=== PATIENT | male | born 1935 | race Caucasian/White ===

== ENCOUNTER 2018-05-01 11:20 | Inpatient (IN) | payer MEDICARE ==
[~2018-05-01] VITALS: Ht 177.8 cm; Wt 109.0 kg
[~2018-05-01 11:20] MED LIST: CARV-49 PO; COU3T PO; ENAL20TA75 PO; ENOX40SY7 SQ; GLIP10TA11 PO; HYDR-3972 PO; METF-437 PO; METF500T7 PO; SENN-173 PO; SIMV10TA2 PO; SITA50TA PO
[2018-05-01 11:52] LABS: BASOPHILS % (AUTO) 0.3 % (0-1); EOSINOPHILS # (AUTO) 0.1 X10'3 (0-0.9); EOSINOPHILS % (AUTO) 2.3 % (0-6); HEMATOCRIT 29.5 % (42.0-52.0); HEMOGLOBIN 9.8 g/dl (14.0-17.9); LYMPHOCYTES # (AUTO) 1.4 X10'3 (1.1-4.8); LYMPHOCYTES % (AUTO) 23.9 % (21-51); MEAN CORPUSCULAR HEMOGLOBIN 31.1 PG (27.0-31.0); MEAN CORPUSCULAR HGB CONC 33.1 % (33.0-36.5); MEAN CORPUSCULAR VOLUME 93.9 FL (78-98); MEAN PLATELET VOLUME 8.8 FL (7.4-10.4); MONOCYTES # (AUTO) 0.4 X10'3 (0-0.9); NEUTROPHILS % (AUTO) 67.5 % (42-75); PLATELET COUNT 266 X10'3 (140-440); RED BLOOD COUNT 3.14 X10'6 (4.70-6.10); RED CELL DISTRIBUTION WIDTH 13.4 % (11.5-14.5); WHITE BLOOD COUNT 5.9 X10'3 (4.5-11.0)
[2018-05-01 12:07] LABS: ALANINE AMINOTRANSFERASE 21 U/L (12-78); ALBUMIN 3.1 G/DL (3.4-5.0); ALBUMIN/GLOBULIN RATIO 0.8 (1.1-1.5); ALKALINE PHOSPHATASE 72 IU/L (46-116); ANION GAP 12 (8-16); ASPARTATE AMINO TRANSFERASE 12 U/L (10-37); BILIRUBIN,TOTAL 0.3 MG/DL (0.1-1.0); BLOOD UREA NITROGEN 36 MG/DL (7-18); BUN/CREATININE RATIO 17.3 (5.4-32.0); CALCIUM 9.7 MG/DL (8.5-10.1); CHLORIDE 100 MMOL/L (99-107); CREATININE 2.08 MG/DL (0.60-1.10); GLUCOSE 223 MG/DL (70-104); LIPASE 221 U/L (73-393); POTASSIUM 4.6 MMOL/L (3.5-5.1); SODIUM 136 MMOL/L (135-145); TOTAL CARBON DIOXIDE 23.7 MMOL/L (24-32); eGFR 31 ML/MIN
[2018-05-01 12:15] LABS: PROTHROMBIN TIME 10.4 SECONDS (9.0-12.0)
[2018-05-01] MEDS ORDERED: pantoprazole 40MG/NS 100ML BAG 100 ML IV ONE ×2 (14:30→15:00)
[2018-05-01] MEDS ORDERED: pantoprazole IV 80 MG in normal saline 100ml IV soln 100 ML IV ONE (14:30)
[2018-05-01] MEDS ORDERED: pantoprazole 40 MG vial IV ONE (14:45)
[2018-05-01] MEDS ORDERED: CLOP75TA15 PO (16:00)
[2018-05-01] MEDS ORDERED: FERR324T4 PO (16:00)
[2018-05-01] MEDS ORDERED: potassium Cl 20 mEq SR tablet PO PRN ×2 (17:10)
[2018-05-01] MEDS ORDERED: magnesium 4gm in 100ml NS 100 ML IV PRN (17:10)
[2018-05-01] MEDS ORDERED: potassium Cl 40MEQ/NS 500ml 500 ML IV PRN ×2 (17:10)
[2018-05-01] MEDS ORDERED: ondansetron/PF 4mg/2ml inj IV PRN (17:10)
[2018-05-01] MEDS: normal saline 1000ml 1,000 ML IV SCH (17:10)
[2018-05-01] MEDS ORDERED: magnesium 2GM in 50ml NS 50 ML IV PRN (17:10)
[2018-05-01] MEDS ORDERED: magnesium Cl slow-release 64mg tablet PO PRN (17:10)
--- NOTE | 2018-05-01 17:10 | NUR ---
PT WAS TAKEN TO GI LAB, REPORT GIVEN TO GAGAN ESTRADA.
[2018-05-01 17:20] VITALS: BP 109/60
[2018-05-01] MEDS ORDERED: LIDOcaine Viscous 15ml cup ONE (17:27)
[2018-05-01] MEDS ORDERED: fentaNYL/PF 50MCG/1 ML 2ML syringe ONE (17:27)
[2018-05-01] MEDS ORDERED: MIDAZolam 5mg/5ml vial ONE (17:27)
[2018-05-01 18:27] VITALS: BP 127/67
[2018-05-01 18:37] VITALS: BP 117/72
[2018-05-01 18:47] VITALS: BP 133/73
[2018-05-01] MEDS ORDERED: PEG 3350/Na sulf,bicarb,Cl/KCl oral sol 4 liter bottle PO ONE (18:55)
[2018-05-01 18:57] VITALS: BP 133/73
--- NOTE | 2018-05-02 00:54 | NUR ---
pt up to B[facility] for bowel movement. He is given warm wipes and advised to please place them in the red trash when done as they are not flushable. pt ambulatory in/out of bed without assist. advised pt to let me know if he needed help.
[2018-05-02 03:09] LABS: CLARITY,URINE CLEAR (Clear); COLOR,URINE YELLOW (Yellow); GLUCOSE, URINE NEGATIVE (Neg); KETONES,URINE NEGATIVE (Neg); LEUKOCYTE ESTERASE ,URINE NEGATIVE (Neg); NITRITES, URINE NEGATIVE (Neg); OCCULT BLOOD,URINE MODERATE (Neg); PROTEIN,URINE NEGATIVE (Neg); UROBILINOGEN,URINE 0.2 E.U/dL (0.2-1.0)
[2018-05-02] MEDS: normal saline 1000ml 1,000 ML IV SCH ×3 (03:10→23:10)
[2018-05-02 03:18] LABS: UA COLLECTION TYPE NON-SPECIFIED
[2018-05-02 03:56] LABS: WBC,URINE NONE SEEN /HPF (0-4)
[2018-05-02 03:57] LABS: BACTERIA,URINE NONE SEEN /HPF (Neg); RBC,URINE 0-2 /HPF (0-2); SQUAMOUS EPITHELIAL CELL,UR FEW /LPF (FEW)
[2018-05-02 06:25] LABS: BASOPHILS % (AUTO) 0.3 % (0-1); EOSINOPHILS # (AUTO) 0.2 X10'3 (0-0.9); EOSINOPHILS % (AUTO) 3.8 % (0-6); HEMATOCRIT 23.2 % (42.0-52.0); HEMOGLOBIN 7.8 g/dl (14.0-17.9); LYMPHOCYTES # (AUTO) 1.8 X10'3 (1.1-4.8); LYMPHOCYTES % (AUTO) 42.7 % (21-51); MEAN CORPUSCULAR HEMOGLOBIN 32.1 PG (27.0-31.0); MEAN CORPUSCULAR HGB CONC 33.6 % (33.0-36.5); MEAN CORPUSCULAR VOLUME 95.6 FL (78-98); MONOCYTES # (AUTO) 0.4 X10'3 (0-0.9); NEUTROPHILS # (AUTO) 1.9 X10'3 (1.8-7.7); NEUTROPHILS % (AUTO) 43.2 % (42-75); PLATELET COUNT 202 X10'3 (140-440); RED BLOOD COUNT 2.43 X10'6 (4.70-6.10); RED CELL DISTRIBUTION WIDTH 13.5 % (11.5-14.5); WHITE BLOOD COUNT 4.4 X10'3 (4.5-11.0)
[2018-05-02 06:35] LABS: ALBUMIN 2.5 G/DL (3.4-5.0); ANION GAP 9 (8-16); BLOOD UREA NITROGEN 25 MG/DL (7-18); BUN/CREATININE RATIO 14.4 (5.4-32.0); CALCIUM 8.4 MG/DL (8.5-10.1); CHLORIDE 107 MMOL/L (99-107); CREATININE 1.74 MG/DL (0.60-1.10); GLUCOSE 180 MG/DL (70-104); MAGNESIUM 1.7 MG/DL (1.5-2.4); POTASSIUM 4.3 MMOL/L (3.5-5.1); SODIUM 141 MMOL/L (135-145); TOTAL CARBON DIOXIDE 25.5 MMOL/L (24-32); eGFR 38 ML/MIN
[2018-05-02] MEDS: pantoprazole 40mg Tablet.DR PO SCH ×2 (07:42→18:02)
[2018-05-02] MEDS: K and/or MAG REPLACEMENT MC SCH (07:59)
[2018-05-02] MEDS: carvedilol 6.25mg tablet PO SCH ×2 (08:41→19:40)
[2018-05-02] MEDS: clopidogrel 75mg tablet PO SCH (08:42)
[2018-05-02] MEDS: ferrous sulfate 325mg tablet PO SCH (08:47)
[2018-05-02 09:46] LABS: HEMOGLOBIN A1C 7.1 % (4.5-6.2)
--- NOTE | 2018-05-02 12:29 | NUR ---
paged dr. gonzales hgb 7.8.
--- NOTE | 2018-05-02 12:32 | NUR ---
patient to gi lab.
[2018-05-02 12:45] VITALS: BP 134/64
[2018-05-02] MEDS ORDERED: MIDAZolam 5mg/5ml vial ONE (12:53)
[2018-05-02] MEDS ORDERED: fentaNYL/PF 50MCG/1 ML 2ML syringe ONE (12:53)
[2018-05-02 14:11] VITALS: BP 104/67
[2018-05-02 14:20] VITALS: BP 116/55
[2018-05-02 14:30] VITALS: BP 105/55
[2018-05-02 14:40] VITALS: BP 115/67
--- NOTE | 2018-05-02 18:30 | NUR ---
Patient in room [facility]. I have received report from Tameka FARAH and had the opportunity to ask questions and assume patient care. patient states he is feeling okay now but has vomited a lot today. Will continue to monitor. Addendum: 05/03/18 at 0517 by Chasidy David RN Wrong patient.
--- NOTE | 2018-05-02 18:30 | NUR ---
Patient in room [facility]. I have received report from Nidia in ED and had the opportunity to ask questions and will assess when he arrives.
[2018-05-02 19:00] VITALS: BP 147/60
--- NOTE | 2018-05-02 19:45 | NUR ---
Patient had a 4 second pause on tele, vitals WNl, asymptomatic and unaware of change in HR. Will continue to monitor.
[2018-05-02] MEDS ORDERED: dextrose 50%-water 50ml dispensing syringe IV PRN ×2 (19:50)
[2018-05-02] MEDS ORDERED: insulin Lispro (HumaLOG) vial - multi-dose SQ SCH (19:50)
[2018-05-02] MEDS ORDERED: dextrose ORAL solution 15 GM/59 ML bottle PO PRN ×2 (19:50)
[2018-05-02] MEDS ORDERED: glucagon, human recombinant 1mg kit SUBCUT PRN (19:50)
[2018-05-02] MEDS: atorvastatin 20mg tablet PO SCH (21:57)
[2018-05-02] MEDS: lisinopril 10 MG tablet PO SCH (22:00)
[2018-05-02] MEDS: insulin glargine (Lantus) pen - multi-dose SQ SCH (22:16)
--- NOTE | 2018-05-02 23:30 | NUR ---
Patient had additional 3 second pause on tele, VS wnl, patient asymptomatic and unaware of change in heart rate. Will continue to monitor.
[2018-05-03] VITALS: BP 112/47
[2018-05-03 06:13] LABS: BASOPHILS % (AUTO) 0.3 % (0-1); EOSINOPHILS # (AUTO) 0.1 X10'3 (0-0.9); EOSINOPHILS % (AUTO) 2.6 % (0-6); HEMATOCRIT 22.5 % (42.0-52.0); HEMOGLOBIN 7.6 g/dl (14.0-17.9); LYMPHOCYTES # (AUTO) 1.2 X10'3 (1.1-4.8); LYMPHOCYTES % (AUTO) 25.4 % (21-51); MEAN CORPUSCULAR HEMOGLOBIN 32.4 PG (27.0-31.0); MEAN CORPUSCULAR VOLUME 95.3 FL (78-98); MEAN PLATELET VOLUME 8.9 FL (7.4-10.4); MONOCYTES # (AUTO) 0.4 X10'3 (0-0.9); MONOCYTES % (AUTO) 8.1 % (2-12); NEUTROPHILS # (AUTO) 2.9 X10'3 (1.8-7.7); NEUTROPHILS % (AUTO) 63.6 % (42-75); PLATELET COUNT 214 X10'3 (140-440); RED BLOOD COUNT 2.36 X10'6 (4.70-6.10); RED CELL DISTRIBUTION WIDTH 13.7 % (11.5-14.5); WHITE BLOOD COUNT 4.6 X10'3 (4.5-11.0)
[2018-05-03 06:22] LABS: ALBUMIN 2.6 G/DL (3.4-5.0); ANION GAP 9 (8-16); BLOOD UREA NITROGEN 16 MG/DL (7-18); BUN/CREATININE RATIO 10.5 (5.4-32.0); CALCIUM 7.9 MG/DL (8.5-10.1); CHLORIDE 108 MMOL/L (99-107); CREATININE 1.53 MG/DL (0.60-1.10); GLUCOSE 181 MG/DL (70-104); MAGNESIUM 1.6 MG/DL (1.5-2.4); POTASSIUM 3.7 MMOL/L (3.5-5.1); SODIUM 141 MMOL/L (135-145); eGFR 44 ML/MIN
--- NOTE | 2018-05-03 06:25 | NUR ---
Patient in room [facility]. I have received report from GAGAN Umaña and had the opportunity to ask questions and assume patient care.
--- NOTE | 2018-05-03 06:32 | NUR ---
Problems reprioritized. Patient report given, questions answered & plan of care reviewed with Fatimah FARAH. Patient resting with CPAP on right side.
[2018-05-03] MEDS: normal saline 1000ml 1,000 ML IV SCH ×3 (06:36→16:48)
[2018-05-03 07:42] VITALS: BP 120/48
[2018-05-03] MEDS: K and/or MAG REPLACEMENT MC SCH (08:00)
[2018-05-03] MEDS ORDERED: linagliptin 5mg tablet PO SCH (08:00)
[2018-05-03] MEDS: MESSAGE TO PHARMACY PO NR (09:13)
[2018-05-03] MEDS: ferrous sulfate 325mg tablet PO SCH (09:31)
[2018-05-03] MEDS: pantoprazole 40mg Tablet.DR PO SCH ×2 (09:31→16:48)
[2018-05-03] MEDS: carvedilol 6.25mg tablet PO SCH ×2 (09:31→19:41)
[2018-05-03 11:30] VITALS: BP 116/51
--- NOTE | 2018-05-03 13:41 | NUR ---
Received call from tele that the patient had a [address] Rene was just calling me back right after Hunter told me. She is aware. She will notify cardiology if he keeps having them. His BP is 147/38 and HR is 74. Patient is resting comfortably in bed; in no distress.
[2018-05-03] MEDS: clopidogrel 75mg tablet PO SCH (14:42)
--- NOTE | 2018-05-03 15:55 | NUR ---
DM consult: Pt with A1c 7.1 seen at bedside. Pt states he doesn't check his BG levels or follow any special diet, he just gets his BG levels checked when he sees an MD for DM management q 3 months. Pt states he takes his PO DM meds per rx w/o any difficulties. Pt with no questions at this time. Pt given written DM education material with referral to outpatient DM class and RD contact information. Will remain available. Addendum: 05/03/18 at [address] Amended: Links added.
--- NOTE | 2018-05-03 18:20 | NUR ---
Patient in room [facility]. I have received report from Fatimah FARAH and had the opportunity to ask questions and assume patient care. Patient resting, respirations even, will continue to monitor.
--- NOTE | 2018-05-03 18:20 | NUR ---
Problems reprioritized. Patient report given, questions answered & plan of care reviewed with GAGAN Umaña.
[2018-05-03 20:00] VITALS: BP 129/52
[2018-05-03] MEDS: insulin glargine (Lantus) pen - multi-dose SQ SCH (22:14)
[2018-05-03] MEDS: atorvastatin 20mg tablet PO SCH (22:14)
[2018-05-03] MEDS: lisinopril 10 MG tablet PO SCH (22:14)
[2018-05-04] VITALS: BP 127/64
[2018-05-04] MEDS: normal saline 1000ml 1,000 ML IV SCH (03:14)
[2018-05-04 05:14] LABS: ALBUMIN 2.7 G/DL (3.4-5.0); ANION GAP 7 (8-16); BLOOD UREA NITROGEN 11 MG/DL (7-18); BUN/CREATININE RATIO 7.7 (5.4-32.0); CALCIUM 7.7 MG/DL (8.5-10.1); CHLORIDE 112 MMOL/L (99-107); CREATININE 1.42 MG/DL (0.60-1.10); GLUCOSE 145 MG/DL (70-104); MAGNESIUM 1.6 MG/DL (1.5-2.4); SODIUM 142 MMOL/L (135-145); TOTAL CARBON DIOXIDE 22.7 MMOL/L (24-32); eGFR 48 ML/MIN
[2018-05-04 05:37] LABS: BASOPHILS % (AUTO) 0.3 % (0-1); EOSINOPHILS # (AUTO) 0.1 X10'3 (0-0.9); HEMATOCRIT 24.4 % (42.0-52.0); HEMOGLOBIN 8.1 g/dl (14.0-17.9); LYMPHOCYTES # (AUTO) 1.3 X10'3 (1.1-4.8); LYMPHOCYTES % (AUTO) 29.4 % (21-51); MEAN CORPUSCULAR HGB CONC 33.4 % (33.0-36.5); MEAN CORPUSCULAR VOLUME 95.8 FL (78-98); MONOCYTES # (AUTO) 0.4 X10'3 (0-0.9); NEUTROPHILS # (AUTO) 2.5 X10'3 (1.8-7.7); NEUTROPHILS % (AUTO) 58.3 % (42-75); PLATELET COUNT 226 X10'3 (140-440); RED BLOOD COUNT 2.55 X10'6 (4.70-6.10); RED CELL DISTRIBUTION WIDTH 13.7 % (11.5-14.5); WHITE BLOOD COUNT 4.3 X10'3 (4.5-11.0)
--- NOTE | 2018-05-04 06:27 | NUR ---
Problems reprioritized. Patient report given, questions answered & plan of care reviewed with Vee FARAH and Raquel RN. Patient resting on right side, CPAP on.
--- NOTE | 2018-05-04 06:56 | NUR ---
Patient in room [facility]. I have received report from Ligia and had the opportunity to ask questions and assume patient care.
[2018-05-04 07:59] VITALS: BP 160/49
[2018-05-04] MEDS: K and/or MAG REPLACEMENT MC SCH (08:00)
[2018-05-04] MEDS: clopidogrel 75mg tablet PO SCH (08:45)
[2018-05-04] MEDS: carvedilol 6.25mg tablet PO SCH (08:45)
[2018-05-04] MEDS: ferrous sulfate 325mg tablet PO SCH (08:45)
[2018-05-04] MEDS: pantoprazole 40mg Tablet.DR PO SCH (08:45)
[2018-05-04] MEDS: MESSAGE TO PHARMACY PO NR (10:07)
[2018-05-04 12:42] VITALS: BP 123/47
[2018-05-04] MEDS ORDERED: FERR324T4 PO (12:52)
--- NOTE | 2018-05-04 14:20 | NUR ---
Tele dc'd and returned to tele room, all belongings taken from room. pt will f/u with pcp and scrap preparer.
--- NOTE | 2018-05-04 15:09 | NUR ---
Patient discharged around 1420. Left in w/c, in a stable condition, accompanied by a hospital staff and his . IV discontinued, discharge medications, plan of care, and educational resources reviewed with pt. Good verbal feedback from patient.
== END 2018-05-04 14:30 | disposition home or self-care (01) | DRG 378 ==
LOC: ER 11:20 → ED HOLD 17:10 → SUR 3N 05-02 18:35
PROVIDERS: ADMIT Internal Medicine; ATTEND Internal Medicine
PROC: 0DB68ZX Excision of Stomach, Via Natural or Artificial Opening Endoscopic, Diagnostic (ICD-10-PCS; 2018-05-01)
PROC: 0W3P8ZZ Control Bleeding in Gastrointestinal Tract, Via Natural or Artificial Opening Endoscopic (ICD-10-PCS; principal; 2018-05-02)
PROC: 0DBL8ZZ Excision of Transverse Colon, Via Natural or Artificial Opening Endoscopic (ICD-10-PCS; 2018-05-02)
PROC: 0DBN8ZX Excision of Sigmoid Colon, Via Natural or Artificial Opening Endoscopic, Diagnostic (ICD-10-PCS; 2018-05-02)
PROC: 0DBN8ZZ Excision of Sigmoid Colon, Via Natural or Artificial Opening Endoscopic (ICD-10-PCS; 2018-05-02)
PROC: 5A09357 Assistance with Respiratory Ventilation, Less than 24 Consecutive Hours, Continuous Positive Airway Pressure (ICD-10-PCS; 2018-05-03)
PROC: 5A09357 Assistance with Respiratory Ventilation, Less than 24 Consecutive Hours, Continuous Positive Airway Pressure (ICD-10-PCS; 2018-05-04)
DX: K55.21 Angiodysplasia of colon with hemorrhage (principal); D68.9 Coagulation defect, unspecified; N17.9 Acute kidney failure, unspecified; K22.10 Ulcer of esophagus without bleeding; K63.5 Polyp of colon; K29.81 Duodenitis with bleeding; D64.9 Anemia, unspecified; E11.9 Type 2 diabetes mellitus without complications; E78.5 Hyperlipidemia, unspecified; I25.10 Atherosclerotic heart disease of native coronary artery without angina pectoris; I12.9 Hypertensive chronic kidney disease with stage 1 through stage 4 chronic kidney disease, or unspecified chronic kidney disease; I48.91 Unspecified atrial fibrillation; K29.60 Other gastritis without bleeding; K57.30 Diverticulosis of large intestine without perforation or abscess without bleeding; N18.3 Chronic kidney disease, stage 3 (moderate); R04.0 Epistaxis; K64.8 Other hemorrhoids; Z88.0 Allergy status to penicillin; Z79.84 Long term (current) use of oral hypoglycemic drugs; Z79.01 Long term (current) use of anticoagulants; Z79.899 Other long term (current) drug therapy; Z85.46 Personal history of malignant neoplasm of prostate; Z86.010 Personal history of colon polyps
CPT/HCPCS: 36415; 43239; 45380; 45382; 45385; 80048; 80053; 81001; 82948; 83036; 83690; 83735; 85025; 85610; 87070; 88305; 88342; 96365; 96376; 99152; 99153; 99285; A4620; C9113; G0378; J1815; J2250; J3010; J7030

== ENCOUNTER 2020-09-14 08:05 | Day surgery (SDC) | payer MEDICARE ==
[~2020-09-14] VITALS: Ht 177.8 cm; Wt 105.1 kg
[~2020-09-14 08:05] MED LIST changes: +ALBU8.5H8 INH; +BENZ-16 PO; -COU3T PO; +DEXA6TAB PO; -ENOX40SY7 SQ; +FERR324T4 PO; -GLIP10TA11 PO; -HYDR-3972 PO; -METF500T7 PO; -SENN-173 PO
[2020-09-14] MEDS ORDERED: albumin 25% 100mL bottle x 1 IV PRN (08:25)
[2020-09-14] MEDS ORDERED: GLIP10TA11 PO (08:49)
[2020-09-14 09:00] VITALS: BP 154/73
[2020-09-14 09:40] VITALS: BP 132/89
[2020-09-14 09:50] VITALS: BP 139/59
[2020-09-14 10:00] VITALS: BP 130/62
[2020-09-14 10:15] VITALS: BP 127/54
[2020-09-14 11:40] LABS: LDH,BODY FLUID 67 U/L; TOTAL PROTEIN,BODY FLUID 3.4 G/DL
== END 2020-09-14 10:35 | disposition home or self-care (01) ==
LOC: SSTAY O 08:05
PROVIDERS: ATTEND Radiology Diagnostic Radiology
DX: J90 Pleural effusion, not elsewhere classified (principal); E11.22 Type 2 diabetes mellitus with diabetic chronic kidney disease; I12.9 Hypertensive chronic kidney disease with stage 1 through stage 4 chronic kidney disease, or unspecified chronic kidney disease; N18.30 Chronic kidney disease, stage 3 unspecified; E78.5 Hyperlipidemia, unspecified; I25.10 Atherosclerotic heart disease of native coronary artery without angina pectoris; E87.1 Hypo-osmolality and hyponatremia; G47.33 Obstructive sleep apnea (adult) (pediatric); I27.81 Cor pulmonale (chronic); Z86.16 Personal history of COVID-19; Z88.0 Allergy status to penicillin; Z78.9 Other specified health status; Z79.84 Long term (current) use of oral hypoglycemic drugs; Z79.899 Other long term (current) drug therapy
CPT/HCPCS: 32555; 83615; 84157; 87070

== ENCOUNTER 2023-08-26 11:44 | Inpatient (IN) | payer MEDICARE ==
[2023-08-26] VITALS (21 sets, daily range): BP systolic 104–154; BP diastolic 41–63; PULSE 88–106; RESP 14–34; O2SAT 96–100
[~2023-08-26] VITALS: Ht 177.8 cm; Wt 91.6 kg
[~2023-08-26 11:44] MED LIST changes: -ALBU8.5H8 INH; -BENZ-16 PO; +CLOP75TA34 PO; -DEXA6TAB PO; -FERR324T4 PO; +LACT1CAP76 PO; +LINE600T14 PO; +METF-1203 PO; -METF-437 PO; +PANT-47 PO; +SIMV-341 PO; -SIMV10TA2 PO
[2023-08-26] MEDS ORDERED: Dextrose 10%-water IV solution 1,000 ML IV SCH (11:45)
[2023-08-26] MEDS: Dextrose 10%-water IV solution 1,000 ML IV SCH (12:10)
[2023-08-26] MEDS: dextrose 50%-water 50ml dispensing syringe IV ONE ×3 (12:53→16:40)
[2023-08-26] MEDS: CefTRIAXone 2gm/D5W 50ml BAG 50 ML IV ONE (14:02)
[2023-08-26 14:23] LABS: ABG BASE EXCESS -11.4 mmol/L (-2.0-2.0); ABG HCO3 13.2 mmol/L (22.0-26.0); ABG OXYGEN SATURATION 96.7 % (94-97); ABG PCO2 (T) 25.8 mmHg (35.0-48.0); ABG PH (T) 7.327 (7.340-7.440); ABG PO2 (T) 93.3 mmHg (75.0-100.0); ALLEN'S TEST POSITIVE; FCOHb 0.3 % (0.0-3.9); FHHb 3.3 % (0.0-5.0); FMetHb 0.5 % (0.0-1.5); FO2Hb 95.9 % (94-97); MODE RA; TOTAL HEMOGLOBIN 9.1 G/dl (14.0-17.9)
[2023-08-26 14:38] LABS: BASOPHILS % (AUTO) 0.1 % (0-1); EOSINOPHILS % (AUTO) 0.9 % (0-6); HEMATOCRIT 25.7 % (42.0-52.0); HEMOGLOBIN 8.4 g/dl (14.0-17.9); LYMPHOCYTES # (AUTO) 1.1 X10'3 (1.1-4.8); LYMPHOCYTES % (AUTO) 19.4 % (21-51); MEAN CORPUSCULAR HGB CONC 32.7 g/dL (33.0-36.5); MEAN CORPUSCULAR VOLUME 88.7 FL (78-98); MEAN PLATELET VOLUME 7.4 FL (7.4-10.4); MONOCYTES # (AUTO) 0.6 X10'3 (0-0.9); MONOCYTES % (AUTO) 10.8 % (2-12); NEUTROPHILS # (AUTO) 3.7 X10'3 (1.8-7.7); NEUTROPHILS % (AUTO) 68.8 % (42-75); PLATELET COUNT 231 X10'3 (140-440); RED CELL DISTRIBUTION WIDTH 17.6 % (11.5-14.5); WHITE BLOOD COUNT 5.4 X10'3 (4.5-11.0)
[2023-08-26 14:44] LABS: ALANINE AMINOTRANSFERASE 10 U/L (12-78); ALBUMIN 2.2 G/DL (3.4-5.0); ALBUMIN/GLOBULIN RATIO 0.5 (1.1-1.5); ALKALINE PHOSPHATASE 64 IU/L (46-116); ANION GAP 16 (8-16); ASPARTATE AMINO TRANSFERASE 8 U/L (10-37); BILIRUBIN,TOTAL 0.2 MG/DL (0.1-1.0); BLOOD UREA NITROGEN 57 MG/DL (7-18); BUN/CREATININE RATIO 6.5 (10.0-20.0); CALCIUM 8.1 MG/DL (8.5-10.1); CHLORIDE 106 MMOL/L (99-107); CREATININE 8.72 MG/DL (0.60-1.10); MAGNESIUM 1.3 MG/DL (1.5-2.4); POTASSIUM 4.8 MMOL/L (3.5-5.1); SODIUM 137 MMOL/L (135-145); TOTAL CARBON DIOXIDE 15.1 MMOL/L (24-32); TOTAL PROTEIN 6.4 G/DL (6.4-8.2); eCRCL 6 ML/MIN; eGFR 6 ML/MIN
[2023-08-26 14:45] LABS: GLUCOSE 64 MG/DL (70-104)
[2023-08-26] MEDS: ondansetron/PF 4mg/2ml inj IV ONE (15:13)
[2023-08-26 15:18] LABS: BILIRUBIN,URINE NEGATIVE (Neg); CLARITY,URINE SLIGHTLY CLOUDY (Clear); COLOR,URINE YELLOW (Yellow); GLUCOSE, URINE NEGATIVE (Neg); KETONES,URINE NEGATIVE (Neg); LEUKOCYTE ESTERASE ,URINE NEGATIVE (Neg); NITRITES, URINE NEGATIVE (Neg); OCCULT BLOOD,URINE LARGE (Neg); PH,URINE 5.5 (4.8-8.0); PROTEIN,URINE 30 mg/dl (Neg); UROBILINOGEN,URINE 0.2 E.U/dL (0.2-1.0)
[2023-08-26 15:22] LABS: UA COLLECTION TYPE CLN CATCH MIDSTREAM
[2023-08-26 15:27] LABS: SQUAMOUS EPITHELIAL CELL,UR FEW /LPF (FEW)
[2023-08-26 15:28] LABS: RBC,URINE TNTC /HPF (0-2)
[2023-08-26 15:30] LABS: BACTERIA,URINE FEW /HPF (Neg); WBC,URINE 0-4 /HPF (0-4)
[2023-08-26] MEDS: pantoprazole 40MG/NS 100ML BAG 100 ML IV SCH (15:45)
[2023-08-26] MEDS: pantoprazole 40 MG vial IV SCH (15:46)
[2023-08-26] MEDS: octreotide inj. 500 MCG in normal saline 100ml IV soln 97.5 ML IV SCH (16:09)
[2023-08-26] MEDS ORDERED: ondansetron/PF 4mg/2ml inj IV PRN (16:20)
[2023-08-26] MEDS: normal saline 1000ml 1,000 ML IV SCH (16:20)
[2023-08-26] MEDS ORDERED: morphine 4 MG/ML inj SYRINge IV PRN (16:20)
[2023-08-26] MEDS ORDERED: magnesium hydroxide 30ml (MOM) UD suspension PO PRN (16:20)
[2023-08-26] MEDS ORDERED: acetaminophen 325mg tablet PO PRN (16:20)
[2023-08-26] MEDS: normal saline 500ml IV soln 500 ML IV ONE ×4 (16:25→16:52)
[2023-08-26] MEDS: LidoCAINE 2% Topical Jelly 11mL syringe (UROJET) TOP ONE (16:48)
[2023-08-26] MEDS: docusate sod 100mg capsule PO SCH (21:08)
[2023-08-26] MEDS: heparin, porcine 5000 units/ml vial SQ SCH (21:08)
[2023-08-27] VITALS (16 sets, daily range): BP systolic 105–140; BP diastolic 39–60; PULSE 85–112; RESP 13–30; O2SAT 95–98
[2023-08-27] MEDS: morphine 2 MG/ML inj. syringe IV PRN (00:19)
[2023-08-27] MEDS: acetaminophen 325mg tablet PO PRN (02:09)
[2023-08-27 06:30] LABS: ALBUMIN 2.1 G/DL (3.4-5.0); ANION GAP 14 (8-16); BLOOD UREA NITROGEN 59 MG/DL (7-18); BUN/CREATININE RATIO 7.2 (10.0-20.0); CALCIUM 7.8 MG/DL (8.5-10.1); CHLORIDE 101 MMOL/L (99-107); CREATININE 8.21 MG/DL (0.60-1.10); MAGNESIUM 1.2 MG/DL (1.5-2.4); PHOSPHORUS 4.3 MG/DL (2.3-4.5); SODIUM 131 MMOL/L (135-145); TOTAL CARBON DIOXIDE 16.2 MMOL/L (24-32); eCRCL 7 ML/MIN; eGFR 6 ML/MIN
[2023-08-27 06:55] LABS: GLUCOSE 313 MG/DL (70-104)
[2023-08-27 08:11] LABS: BASOPHILS % (AUTO) 0.1 % (0-1); EOSINOPHILS # (AUTO) 0.1 X10'3 (0-0.9); EOSINOPHILS % (AUTO) 1.9 % (0-6); HEMATOCRIT 26.2 % (42.0-52.0); HEMOGLOBIN 8.4 g/dl (14.0-17.9); LYMPHOCYTES # (AUTO) 0.9 X10'3 (1.1-4.8); MEAN CORPUSCULAR HEMOGLOBIN 28.4 PG (27.0-31.0); MEAN CORPUSCULAR HGB CONC 31.9 g/dL (33.0-36.5); MEAN CORPUSCULAR VOLUME 88.9 FL (78-98); MEAN PLATELET VOLUME 7.4 FL (7.4-10.4); MONOCYTES # (AUTO) 0.6 X10'3 (0-0.9); MONOCYTES % (AUTO) 11.3 % (2-12); NEUTROPHILS # (AUTO) 3.9 X10'3 (1.8-7.7); NEUTROPHILS % (AUTO) 69.7 % (42-75); PLATELET COUNT 183 X10'3 (140-440); RED BLOOD COUNT 2.95 X10'6 (4.70-6.10); RED CELL DISTRIBUTION WIDTH 17.2 % (11.5-14.5); WHITE BLOOD COUNT 5.5 X10'3 (4.5-11.0)
[2023-08-27] MEDS ORDERED: dextrose 50%-water 50ml dispensing syringe IV PRN ×2 (09:10)
[2023-08-27] MEDS ORDERED: DEXTROSE 15 GM of carb/4 tabs (each vial/BOTTLE has 4 tablets) PO PRN ×2 (09:10)
[2023-08-27] MEDS ORDERED: glucagon, human recombinant 1mg kit SUBCUT PRN (09:10)
[2023-08-27] MEDS: pantoprazole 40mg Tablet.DR PO SCH (09:32)
[2023-08-27] MEDS: sodium bicarbonate (8.4%) 1 mEq/ml syringe IV ONE (09:34)
[2023-08-27] MEDS: SODIUM ZIRCONIUM CYCLOSILICATE 10 GM POWD.PACK PO ONE (09:34)
[2023-08-27 10:57] LABS: C DIFF ANTIGEN POSITIVE (NEGATIVE); C DIFF SPECIMEN=DIARRHEA? ACCEPTABLE; C DIFFICILE TOXINS A&B POSITIVE (Neg)
[2023-08-27] MEDS: INSULIN LISPRO 100 UNIT/ML INSULN.PEN MULTI-DOSE SQ SCH ×3 (12:24→19:02)
[2023-08-27 12:38] LABS: BILIRUBIN,URINE NEGATIVE (Neg); CLARITY,URINE CLOUDY (Clear); COLOR,URINE YELLOW (Yellow); GLUCOSE, URINE 250 mg/dl (Neg); KETONES,URINE NEGATIVE (Neg); LEUKOCYTE ESTERASE ,URINE NEGATIVE (Neg); NITRITES, URINE NEGATIVE (Neg); OCCULT BLOOD,URINE LARGE (Neg); PH,URINE 5.5 (4.8-8.0); PROTEIN,URINE 30 mg/dl (Neg); UROBILINOGEN,URINE 0.2 E.U/dL (0.2-1.0)
[2023-08-27 12:44] LABS: TOTAL PROTEIN,URINE RANDOM 144.8 MG/DL
[2023-08-27 12:47] LABS: UA COLLECTION TYPE FOLEY CATH
[2023-08-27 12:51] LABS: MUCUS STRANDS FEW /LPF (Neg); RBC,URINE TNTC /HPF (0-2); SQUAMOUS EPITHELIAL CELL,UR FEW /LPF (FEW)
[2023-08-27 12:52] LABS: AMORPHOUS URATES 1+; TRANSITIONAL EPI CELLS,URINE FEW /HPF
[2023-08-27 12:53] LABS: BACTERIA,URINE NONE SEEN /HPF (Neg)
[2023-08-27 13:31] LABS: UA EOSINOPHILS NO EOS /HPF
[2023-08-27] MEDS: VANCOMYCIN 125 MG/5 ML oral SOLN.RECON 5mL UD syringe (FIRVANQ) PO SCH (16:26)
[2023-08-27] MEDS: normal saline 1000ml 1,000 ML IV SCH (16:39)
[2023-08-27] MEDS ORDERED: LOSA50TA64 PO (17:01)
[2023-08-27] MEDS ORDERED: GLIP5TAB26 PO (17:01)
[2023-08-27] MEDS ORDERED: FLUT1BLS13 PO (17:01)
[2023-08-27] MEDS ORDERED: SPIR1TAB4 PO (17:01)
[2023-08-27] MEDS ORDERED: PANT40TA54 PO (17:01)
[2023-08-27] MEDS: insulin glargine (Lantus) pen - multi-dose SQ SCH (20:52)
[2023-08-27] MEDS: diphenhydrAMINE 25mg capsule PO ONE (23:00)
[2023-08-28] VITALS (9 sets, daily range): BP systolic 108–136; BP diastolic 46–68; PULSE 102–118; RESP 14–20; O2SAT 95–99
[2023-08-28 06:09] LABS: BASOPHILS % (AUTO) 0.1 % (0-1); EOSINOPHILS # (AUTO) 0.1 X10'3 (0-0.9); EOSINOPHILS % (AUTO) 1.5 % (0-6); HEMATOCRIT 25.7 % (42.0-52.0); HEMOGLOBIN 8.4 g/dl (14.0-17.9); LYMPHOCYTES # (AUTO) 1.1 X10'3 (1.1-4.8); LYMPHOCYTES % (AUTO) 19.6 % (21-51); MEAN CORPUSCULAR HEMOGLOBIN 28.3 PG (27.0-31.0); MEAN CORPUSCULAR HGB CONC 32.6 g/dL (33.0-36.5); MEAN CORPUSCULAR VOLUME 86.9 FL (78-98); MEAN PLATELET VOLUME 7.3 FL (7.4-10.4); MONOCYTES # (AUTO) 0.9 X10'3 (0-0.9); MONOCYTES % (AUTO) 16.9 % (2-12); NEUTROPHILS # (AUTO) 3.4 X10'3 (1.8-7.7); NEUTROPHILS % (AUTO) 61.9 % (42-75); PLATELET COUNT 189 X10'3 (140-440); RED BLOOD COUNT 2.96 X10'6 (4.70-6.10); RED CELL DISTRIBUTION WIDTH 16.9 % (11.5-14.5); WHITE BLOOD COUNT 5.4 X10'3 (4.5-11.0)
[2023-08-28 06:43] LABS: TOTAL CELLS COUNTED 100
[2023-08-28 06:44] LABS: ALANINE AMINOTRANSFERASE 13 U/L (12-78); ALBUMIN 2.1 G/DL (3.4-5.0); ALBUMIN/GLOBULIN RATIO 0.5 (1.1-1.5); ALKALINE PHOSPHATASE 63 IU/L (46-116); ANION GAP 12 (8-16); ASPARTATE AMINO TRANSFERASE 10 U/L (10-37); BILIRUBIN,TOTAL 0.3 MG/DL (0.1-1.0); BLOOD UREA NITROGEN 56 MG/DL (7-18); BUN/CREATININE RATIO 7.9 (10.0-20.0); CALCIUM 8.2 MG/DL (8.5-10.1); CHLORIDE 105 MMOL/L (99-107); CREATININE 7.12 MG/DL (0.60-1.10); GLUCOSE 106 MG/DL (70-104); MAGNESIUM 1.1 MG/DL (1.5-2.4); PHOSPHORUS 4.2 MG/DL (2.3-4.5); PLATELET ESTIMATE NORMAL; POTASSIUM 4.5 MMOL/L (3.5-5.1); SODIUM 134 MMOL/L (135-145); TOTAL CARBON DIOXIDE 17.1 MMOL/L (24-32); TOTAL PROTEIN 6.3 G/DL (6.4-8.2); eCRCL 8 ML/MIN; eGFR 7 ML/MIN
[2023-08-28 06:45] LABS: ANISOCYTOSIS 1+; ELLIPTOCYTES FEW
[2023-08-28] MEDS: SODIUM ZIRCONIUM CYCLOSILICATE 10 GM POWD.PACK PO SCH (08:16)
[2023-08-28] MEDS: INSULIN LISPRO 100 UNIT/ML INSULN.PEN MULTI-DOSE SQ SCH (08:20)
[2023-08-28] MEDS ORDERED: magnesium 2GM in 50ml NS 50 ML IV PRN (13:20)
[2023-08-29] VITALS (7 sets, daily range): BP systolic 117–150; BP diastolic 49–66; PULSE 89–103; RESP 13–17; O2SAT 96–99
[2023-08-29 06:17] LABS: BASOPHILS % (AUTO) 0.1 % (0-1); EOSINOPHILS # (AUTO) 0.2 X10'3 (0-0.9); EOSINOPHILS % (AUTO) 2.9 % (0-6); HEMATOCRIT 25.1 % (42.0-52.0); HEMOGLOBIN 8.4 g/dl (14.0-17.9); LYMPHOCYTES # (AUTO) 1.1 X10'3 (1.1-4.8); LYMPHOCYTES % (AUTO) 21.8 % (21-51); MEAN CORPUSCULAR HEMOGLOBIN 28.6 PG (27.0-31.0); MEAN CORPUSCULAR HGB CONC 33.3 g/dL (33.0-36.5); MEAN CORPUSCULAR VOLUME 85.7 FL (78-98); MEAN PLATELET VOLUME 7.4 FL (7.4-10.4); MONOCYTES % (AUTO) 18.4 % (2-12); NEUTROPHILS % (AUTO) 56.8 % (42-75); PLATELET COUNT 185 X10'3 (140-440); RED BLOOD COUNT 2.93 X10'6 (4.70-6.10); RED CELL DISTRIBUTION WIDTH 16.7 % (11.5-14.5); WHITE BLOOD COUNT 5.3 X10'3 (4.5-11.0)
[2023-08-29 06:31] LABS: ALANINE AMINOTRANSFERASE 11 U/L (12-78); ALBUMIN 2.1 G/DL (3.4-5.0); ALBUMIN/GLOBULIN RATIO 0.5 (1.1-1.5); ALKALINE PHOSPHATASE 62 IU/L (46-116); ANION GAP 6 (8-16); ASPARTATE AMINO TRANSFERASE 6 U/L (10-37); BILIRUBIN,TOTAL 0.3 MG/DL (0.1-1.0); BLOOD UREA NITROGEN 51 MG/DL (7-18); BUN/CREATININE RATIO 8.9 (10.0-20.0); CALCIUM 8.2 MG/DL (8.5-10.1); CHLORIDE 105 MMOL/L (99-107); CREATININE 5.72 MG/DL (0.60-1.10); PHOSPHORUS 3.9 MG/DL (2.3-4.5); SODIUM 133 MMOL/L (135-145); TOTAL PROTEIN 6.3 G/DL (6.4-8.2); eCRCL 9 ML/MIN; eGFR 9 ML/MIN
[2023-08-29 06:41] LABS: GLUCOSE 173 MG/DL (70-104)
[2023-08-29 07:01] LABS: TOTAL CELLS COUNTED 100
[2023-08-29] MEDS: magnesium 4gm in 100ml NS 100 ML IV PRN (07:01)
[2023-08-29 07:02] LABS: ANISOCYTOSIS 1+; PLATELET ESTIMATE NORMAL
[2023-08-29 07:03] LABS: BURR CELLS FEW; ELLIPTOCYTES FEW
[2023-08-29 07:04] LABS: SCHISTOCYTES FEW
[2023-08-29] MEDS: SODIUM ZIRCONIUM CYCLOSILICATE 10 GM POWD.PACK PO SCH (08:09)
[2023-08-29] MEDS: K and/or MAG REPLACEMENT MC SCH (08:14)
[2023-08-30] VITALS (15 sets, daily range): BP systolic 101–154; BP diastolic 37–72; PULSE 84–112; RESP 12–22; O2SAT 3–98
[2023-08-30 06:19] LABS: BASOPHILS % (AUTO) 0.2 % (0-1); EOSINOPHILS # (AUTO) 0.1 X10'3 (0-0.9); HEMATOCRIT 22.7 % (42.0-52.0); HEMOGLOBIN 7.7 g/dl (14.0-17.9); LYMPHOCYTES % (AUTO) 27.9 % (21-51); MEAN CORPUSCULAR HEMOGLOBIN 28.5 PG (27.0-31.0); MEAN CORPUSCULAR HGB CONC 33.8 g/dL (33.0-36.5); MEAN CORPUSCULAR VOLUME 84.3 FL (78-98); MEAN PLATELET VOLUME 7.1 FL (7.4-10.4); MONOCYTES # (AUTO) 0.8 X10'3 (0-0.9); MONOCYTES % (AUTO) 23.9 % (2-12); NEUTROPHILS # (AUTO) 1.6 X10'3 (1.8-7.7); PLATELET COUNT 187 X10'3 (140-440); RED BLOOD COUNT 2.69 X10'6 (4.70-6.10); RED CELL DISTRIBUTION WIDTH 16.2 % (11.5-14.5); WHITE BLOOD COUNT 3.5 X10'3 (4.5-11.0)
[2023-08-30 06:51] LABS: TOTAL CELLS COUNTED 100
[2023-08-30 06:52] LABS: ANISOCYTOSIS 1+; ELLIPTOCYTES FEW; PLATELET ESTIMATE NORMAL
[2023-08-30 07:07] LABS: ALANINE AMINOTRANSFERASE 13 U/L (12-78); ALBUMIN/GLOBULIN RATIO 0.5 (1.1-1.5); ALKALINE PHOSPHATASE 59 IU/L (46-116); ANION GAP 8 (8-16); ASPARTATE AMINO TRANSFERASE 3 U/L (10-37); BILIRUBIN,TOTAL 0.3 MG/DL (0.1-1.0); BLOOD UREA NITROGEN 45 MG/DL (7-18); BUN/CREATININE RATIO 10.5 (10.0-20.0); CALCIUM 8.1 MG/DL (8.5-10.1); CHLORIDE 105 MMOL/L (99-107); CREATININE 4.28 MG/DL (0.60-1.10); GLUCOSE 147 MG/DL (70-104); MAGNESIUM 1.6 MG/DL (1.5-2.4); PHOSPHORUS 3.6 MG/DL (2.3-4.5); POTASSIUM 3.6 MMOL/L (3.5-5.1); SODIUM 133 MMOL/L (135-145); TOTAL CARBON DIOXIDE 19.9 MMOL/L (24-32); TOTAL PROTEIN 6.2 G/DL (6.4-8.2); eCRCL 13 ML/MIN; eGFR 13 ML/MIN
[2023-08-31] VITALS (10 sets, daily range): BP systolic 100–151; BP diastolic 46–76; PULSE 64–97; RESP 10–24; TEMP 97.4–98.1; O2SAT 94–100
[2023-08-31 07:11] LABS: BASOPHILS % (AUTO) 0.4 % (0-1); EOSINOPHILS # (AUTO) 0.2 X10'3 (0-0.9); HEMATOCRIT 22.1 % (42.0-52.0); HEMOGLOBIN 7.4 g/dl (14.0-17.9); LYMPHOCYTES # (AUTO) 1.1 X10'3 (1.1-4.8); LYMPHOCYTES % (AUTO) 29.9 % (21-51); MEAN CORPUSCULAR HEMOGLOBIN 28.4 PG (27.0-31.0); MEAN CORPUSCULAR HGB CONC 33.5 g/dL (33.0-36.5); MEAN CORPUSCULAR VOLUME 84.7 FL (78-98); MEAN PLATELET VOLUME 7.3 FL (7.4-10.4); MONOCYTES # (AUTO) 0.8 X10'3 (0-0.9); MONOCYTES % (AUTO) 21.2 % (2-12); NEUTROPHILS # (AUTO) 1.7 X10'3 (1.8-7.7); NEUTROPHILS % (AUTO) 44.5 % (42-75); PLATELET COUNT 201 X10'3 (140-440); RED CELL DISTRIBUTION WIDTH 16.5 % (11.5-14.5); WHITE BLOOD COUNT 3.8 X10'3 (4.5-11.0)
[2023-08-31 07:31] LABS: ALANINE AMINOTRANSFERASE 10 U/L (12-78); ALBUMIN/GLOBULIN RATIO 0.5 (1.1-1.5); ALKALINE PHOSPHATASE 57 IU/L (46-116); ANION GAP 6 (8-16); ASPARTATE AMINO TRANSFERASE 9 U/L (10-37); BILIRUBIN,TOTAL 0.2 MG/DL (0.1-1.0); BLOOD UREA NITROGEN 42 MG/DL (7-18); BUN/CREATININE RATIO 11.1 (10.0-20.0); CALCIUM 8.4 MG/DL (8.5-10.1); CHLORIDE 106 MMOL/L (99-107); GLUCOSE 136 MG/DL (70-104); MAGNESIUM 1.4 MG/DL (1.5-2.4); PHOSPHORUS 3.6 MG/DL (2.3-4.5); POTASSIUM 3.6 MMOL/L (3.5-5.1); SODIUM 135 MMOL/L (135-145); TOTAL CARBON DIOXIDE 22.6 MMOL/L (24-32); TOTAL PROTEIN 6.1 G/DL (6.4-8.2); eCRCL 14 ML/MIN; eGFR 15 ML/MIN
[2023-09-01 02:00] VITALS: BP 128/50; PULSE 83; RESP 18; TEMP 97.6; O2SAT 96
[2023-09-01 06:00] VITALS: BP 127/60; PULSE 71; RESP 19; TEMP 97.6; O2SAT 96
[2023-09-01 07:30] LABS: ALANINE AMINOTRANSFERASE 9 U/L (12-78); ALBUMIN 1.9 G/DL (3.4-5.0); ALBUMIN/GLOBULIN RATIO 0.5 (1.1-1.5); ALKALINE PHOSPHATASE 58 IU/L (46-116); ANION GAP 9 (8-16); ASPARTATE AMINO TRANSFERASE 12 U/L (10-37); BILIRUBIN,TOTAL 0.2 MG/DL (0.1-1.0); BLOOD UREA NITROGEN 39 MG/DL (7-18); BUN/CREATININE RATIO 12.5 (10.0-20.0); CALCIUM 8.3 MG/DL (8.5-10.1); CHLORIDE 107 MMOL/L (99-107); CREATININE 3.11 MG/DL (0.60-1.10); GLUCOSE 137 MG/DL (70-104); MAGNESIUM 1.3 MG/DL (1.5-2.4); PHOSPHORUS 3.3 MG/DL (2.3-4.5); POTASSIUM 3.5 MMOL/L (3.5-5.1); SODIUM 137 MMOL/L (135-145); TOTAL CARBON DIOXIDE 21.5 MMOL/L (24-32); eCRCL 17 ML/MIN; eGFR 19 ML/MIN
[2023-09-01] MEDS ORDERED: potassium Cl 40MEQ/1/2NS 520ml 520 ML IV PRN (07:40)
[2023-09-01] MEDS ORDERED: potassium Cl 20 mEq SR tablet PO PRN ×2 (07:40)
[2023-09-01] MEDS ORDERED: magnesium 2GM in 50ml NS 50 ML IV PRN (07:40)
[2023-09-01] MEDS ORDERED: magnesium 4gm in 100ml NS 100 ML IV PRN (07:40)
[2023-09-01 08:00] VITALS: RESP 19; O2SAT 96
[2023-09-01] MEDS: magnesium Cl slow-release 64mg tablet PO PRN (09:20)
[2023-09-01 11:00] VITALS: BP 118/51; PULSE 98; RESP 16; TEMP 97.8; O2SAT 97
[2023-09-01] MEDS ORDERED: VANC25SO PO (12:10)
[2023-09-01] MEDS ORDERED: carVEDilol 3.125mg tablet PO SCH (20:00)
[2023-09-01] MEDS ORDERED: albuterol 2.5 MG/3 ML nebule NEB SCH (20:00)
[2023-09-01] MEDS ORDERED: budesonide 0.5mg/2ml UD nebule IH SCH (20:00)
[2023-09-02] MEDS ORDERED: losartan 25mg tablet PO SCH (08:00)
[2023-09-02] MEDS ORDERED: pantoprazole 40mg Tablet.DR PO SCH (08:00)
[2023-09-02] MEDS ORDERED: lactobacillus rhamnosus 10,000 MMU CELLS/CAPSULE PO SCH (08:00)
[2023-09-02] MEDS ORDERED: clopidogrel 75mg tablet PO SCH (08:00)
== END 2023-09-01 15:48 | disposition home or self-care (01) | DRG 871 ==
LOC: ER 11:45 → ED HOLD 16:23 → CICU 2S 17:03 → PCU 3S 08-31 13:10
PROVIDERS: ADMIT Internal Medicine Critical Care Medicine; ATTEND Internal Medicine Critical Care Medicine
PROC: 5A09357 Assistance with Respiratory Ventilation, Less than 24 Consecutive Hours, Continuous Positive Airway Pressure (ICD-10-PCS; principal; 2023-08-31)
PROC: 5A09357 Assistance with Respiratory Ventilation, Less than 24 Consecutive Hours, Continuous Positive Airway Pressure (ICD-10-PCS; 2023-09-01)
DX: A41.9 Sepsis, unspecified organism (principal); N17.0 Acute kidney failure with tubular necrosis; A04.72 Enterocolitis due to Clostridium difficile, not specified as recurrent; I13.0 Hypertensive heart and chronic kidney disease with heart failure and stage 1 through stage 4 chronic kidney disease, or unspecified chronic kidney disease; N18.4 Chronic kidney disease, stage 4 (severe); I48.20 Chronic atrial fibrillation, unspecified; K92.2 Gastrointestinal hemorrhage, unspecified; I43 Cardiomyopathy in diseases classified elsewhere; E87.20 Acidosis, unspecified; E78.5 Hyperlipidemia, unspecified; E11.649 Type 2 diabetes mellitus with hypoglycemia without coma; I25.10 Atherosclerotic heart disease of native coronary artery without angina pectoris; E11.22 Type 2 diabetes mellitus with diabetic chronic kidney disease; G47.33 Obstructive sleep apnea (adult) (pediatric); J44.9 Chronic obstructive pulmonary disease, unspecified; I50.9 Heart failure, unspecified; E87.5 Hyperkalemia; Z79.01 Long term (current) use of anticoagulants; Z79.899 Other long term (current) drug therapy; Z86.73 Personal history of transient ischemic attack (TIA), and cerebral infarction without residual deficits; Z88.0 Allergy status to penicillin; Z79.84 Long term (current) use of oral hypoglycemic drugs; Z87.11 Personal history of peptic ulcer disease
CPT/HCPCS: 36415; 36600; 70450; 71045; 74176; 76770; 80053; 80069; 81001; 82570; 82803; 82948; 83605; 83735; 84145; 84156; 84300; 85007; 85018; 85025; 86885; 86900; 86901; 87040; 87081; 87207; 87324; 87449; 93005; 96365; 96367; 97161; 97530; 99285; A4314; A4615; A6213; A6250; C9113; G0378; J0696; J1644; J1815; J2270; J2354; J2405; J3475; J3490; J7030; J7040; Q0163

== ENCOUNTER 2024-08-26 20:55 | Inpatient (IN) | payer MEDICARE ==
[~2024-08-26] VITALS: Ht 177.8 cm; Wt 88.6 kg
[~2024-08-26 20:55] MED LIST changes: -CARV-49 PO; +CARV-50 PO; +CEFD300C3 PO; -CLOP75TA34 PO; +EMPA10TA PO; -ENAL20TA75 PO; +FERR325T28 PO; +LACT1CAP26 PO; -LACT1CAP76 PO; -LINE600T14 PO; +LOSA-415 PO; -METF-1203 PO; -PANT-47 PO; +PANT40TA54 PO; +PRED5TAB PO; +VITC500T PO
[2024-08-26 21:53] LABS: BASOPHILS % (AUTO) 0.6 % (0-1); EOSINOPHILS # (AUTO) 0.2 X10'3 (0-0.9); EOSINOPHILS % (AUTO) 4.2 % (0-6); HEMOGLOBIN 7.3 g/dl (14.0-17.9); LYMPHOCYTES # (AUTO) 1.3 X10'3 (1.1-4.8); LYMPHOCYTES % (AUTO) 32.3 % (21-51); MEAN CORPUSCULAR HEMOGLOBIN 30.3 PG (27.0-31.0); MEAN CORPUSCULAR VOLUME 89.1 FL (78-98); MONOCYTES # (AUTO) 0.4 X10'3 (0-0.9); MONOCYTES % (AUTO) 10.5 % (2-12); NEUTROPHILS % (AUTO) 52.4 % (42-75); PLATELET COUNT 145 X10'3 (140-440); RED BLOOD COUNT 2.41 X10'6 (4.70-6.10); RED CELL DISTRIBUTION WIDTH 15.7 % (11.5-14.5); WHITE BLOOD COUNT 3.9 X10'3 (4.5-11.0)
[2024-08-26 21:57] LABS: HEMATOCRIT 21.4 % (42.0-52.0)
[2024-08-26 22:14] LABS: ALANINE AMINOTRANSFERASE 18 U/L (12-78); ALBUMIN 2.3 G/DL (3.4-5.0); ALBUMIN/GLOBULIN RATIO 0.8 (1.1-1.5); ALKALINE PHOSPHATASE 86 IU/L (46-116); ANION GAP 7 (8-16); ASPARTATE AMINO TRANSFERASE 11 U/L (10-37); BILIRUBIN,TOTAL 0.3 MG/DL (0.1-1.0); BLOOD UREA NITROGEN 40 MG/DL (7-18); BUN/CREATININE RATIO 13.8 (10.0-20.0); CALCIUM 8.2 MG/DL (8.5-10.1); CHLORIDE 109 MMOL/L (99-107); CREATININE 2.89 MG/DL (0.60-1.10); GLUCOSE 184 MG/DL (70-104); POTASSIUM 3.8 MMOL/L (3.5-5.1); SODIUM 139 MMOL/L (135-145); TOTAL CARBON DIOXIDE 22.9 MMOL/L (24-32); TOTAL PROTEIN 5.2 G/DL (6.4-8.2); eCRCL 18 ML/MIN; eGFR 21 ML/MIN
--- NOTE | 2024-08-26 22:17 | Physician Documentation ---
History of Present Illness ~ Chief Complaint: Bloody Stools Stated Complaint: HYPOTENSION Time Seen by MD: 22:16 Primary Medical Doctor: DR. Farrell. ([facility]). Floorman: Dr. Ambika Fajardo Mode of Arrival: Ambulatory HPI Patient presents to the emergency room as a transfer from [facility] for GI bleed. 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 Patient was not on blood thinners. Hemoglobin at sending facility was below seven therefore 1 unit of packed red blood cells was administered. Patient has been endorsing melena since yesterday. Medication Reconciliation Allergies: Coded Allergies: Penicillins (Verified Allergy, Unknown, 08/26/24) TOUNGE EDEMA Scheduled Ascorbic Acid* (Vitamin C*), 1 TAB PO BID, (Reported) Carvedilol* (Coreg*), 3.125 MG PO BID, (Reported) Cefdinir (Cefdinir), 1 CAP PO Q12H Empagliflozin (Jardiance), 1 TAB PO DAILY Ferrous Sulfate* (Ferrous Sulfate*), 1 TAB PO DAILY, (Reported) Lactobacillus Rhamnosus (Culturelle), 1 CAP PO BID Losartan Potassium* (Cozaar*), 2 TAB PO DAILY, (Reported) Pantoprazole Sodium (Pantoprazole Sodium), 40 MG PO DAILY Prednisone* (Prednisone*), 20 MG PO DAILY, (Reported) Simvastatin (Zocor), 40 MG PO HS, (Reported) Sitagliptin Phosphate (Januvia), 1 TAB PO DAILY Past Medical History Past Medical History: Atrial Fibrillation, Coronary Artery Disease, Hypertension, Peptic Ulcer Disease, Acute Kidney Injury, Chronic Kidney Disease, Diabetes, *CANCER* Past Surgical History: orthopedic surgeries Alcohol Use: Abuse Drug Use: none Lives with: Spouse Lives In: Home Occupation: retired Review of Systems ROS All review of systems negative except as per HPI Physical Exam Vital Signs: Temperature: 98.5, Source: Oral, Heart Rate: 50, Respiratory Rate: 16, BP: 143/61, Pulse Oximetry: 100, Weight: 88.640 Oxygen Flow Rate: 0 Physical Exam General: Patient is awake, alert, oriented x4 in no acute distress Head: Normocephalic and atraumatic. Eyes: Conjunctival normal. EOMI. PERRL. ENT: Mucous membranes moist. Neck: Supple, trachea is midline. Chest: Clear to auscultation bilaterally without rales, rhonchi, or wheezes. There is no accessory muscle use or retractions. Cardiac: Bradycardic and regular without murmurs, gallops, or rubs. Abd: Soft, nondistended, nontender, with normoactive bowel sounds. No guarding, rebound, or rigidity. Progress Results/Orders Results/Orders Orders - JOESPH MCCARTY MD Monitor (08/26/24 20:57) Saline Lock (08/26/24 20:57) Oxygen (08/26/24 20:57) Electrocardiogram (08/26/24 20:57) Pantoprazole 40mg/Ns 100ml Bag (Protonix (08/27/24 01:00) Completed Orders - JOESPH MCCARTY MD Cbc/Diff (08/26/24 20:57) CMP (08/26/24 20:57) Type And Screen (08/26/24 20:57) Vital Signs 08/26/24 08/26/24 20:57 21:09 Temp 98.5 Pulse 50 Resp 17 16 B/P (MAP) 143/61 Pulse Ox 100 O2 Flow Rate 0 Laboratory Tests Test 08/26/24 21:44 White Blood Count 3.9 L Red Blood Count 2.41 L Hemoglobin 7.3 L Hematocrit 21.4 *L Mean Corpuscular Volume 89.1 Mean Corpuscular Hemoglobin 30.3 Mean Corpuscular Hemoglobin Concent 34.0 Red Cell Distribution Width 15.7 H Platelet Count 145 Mean Platelet Volume 8.0 Neutrophils (%) (Auto) 52.4 Lymphocytes (%) (Auto) 32.3 Monocytes (%) (Auto) 10.5 Eosinophils (%) (Auto) 4.2 Basophils (%) (Auto) 0.6 Neutrophils # (Auto) 2.0 Lymphocytes # (Auto) 1.3 Monocytes # (Auto) 0.4 Eosinophils # (Auto) 0.2 Basophils # (Auto) 0.0 CBC Comment Sodium Level 139 Potassium Level 3.8 Chloride Level 109 H Carbon Dioxide Level 22.9 L Anion Gap 7 L Blood Urea Nitrogen 40 H Creatinine 2.89 H Estimated GFR/1.73 m2 21 BUN/Creatinine Ratio 13.8 Glucose Level 184 H Calcium Level 8.2 L Total Bilirubin 0.3 Aspartate Amino Transf (AST/SGOT) 11 Alanine Aminotransferase (ALT/SGPT) 18 Alkaline Phosphatase 86 Total Protein 5.2 L Albumin 2.3 L Globulin 2.9 Albumin/Globulin Ratio 0.8 L Chemistry Comments EKG/XRAY/CT/US/VASC/MRI EKG : Additional Comment EKG interpreted by myself shows time of 2058, rate 73, atrial fibrillation, normal axis, no ST changes Medical Decision Making Findings Patient presents to the emergency room as transfer from [facility] for GI bleed requiring 1 unit of packed red blood cell transfusion. Currently he was vital signs are stable. Protonix drip continued. We will admit for GI consult. Diff Dx GI Bleed:Consideration: Include: AE fistula, Angiodysplasia, Bleeding diathesis, Blood loss anemia, Esophageal varicies, Gastritis, Venessa-De La Garza syndrome, PUD Departure Admitted to Inpatient Unit: yes, to hospitalist Impression: Primary Impression: GI bleed Referrals: NO PRIMARY CARE PROVIDER (PCP) Critical Care Note Total Time (mins): 45 Critical Care Note The very real possibility of a deterioration of this patient's condition required the highest level of my preparedness for sudden, emergent intervention. I provided critical care services, which included medication orders, frequent reevaluations of the patient's condition and response to treatment, ordering and reviewing test results, and discussing the case with various consultants. Excludes time spent performing separately billable procedures. The critical care time associated with the care of the patient was 45 minutes not counting procedures Signature Scribe Signature: No scribe Attestation: The note accurately reflects work and decisions made by me.Joesph Mccarty MD 08/26/24 22:47 JOESPH MCCARTY MD August 26, 2024 22:17
[2024-08-26] MEDS ORDERED: potassium Cl 20 mEq SR tablet PO PRN ×2 (23:05)
[2024-08-26] MEDS ORDERED: magnesium hydroxide 30ml (MOM) UD suspension PO PRN (23:05)
[2024-08-26] MEDS ORDERED: magnesium sulf-water 4G/100mL 100 ML IV PRN (23:05)
[2024-08-26] MEDS ORDERED: magnesium Cl slow-release 64mg tablet PO PRN (23:05)
[2024-08-26] MEDS ORDERED: morphine 2 MG/ML inj. syringe IV PRN ×2 (23:05)
[2024-08-26] MEDS ORDERED: magnesium sulf-water 2g/50mL 50 ML IV PRN (23:05)
[2024-08-26] MEDS ORDERED: ondansetron/PF 4mg/2ml inj IV PRN (23:05)
[2024-08-26] MEDS ORDERED: potassium Cl 40MEQ/1/2NS 520ml 520 ML IV PRN (23:05)
[2024-08-26] MEDS ORDERED: mag hydrox/Alum hydrox/simeth 30ml oral suspension PO PRN (23:05)
[2024-08-26] MEDS ORDERED: HYDR-3686 PO (23:09)
[2024-08-26] MEDS ORDERED: SIMV-45 PO (23:09)
[2024-08-26] MEDS ORDERED: LOSA50TA64 PO (23:09)
[2024-08-26] MEDS ORDERED: ASCO500T20 PO (23:21)
[2024-08-26] MEDS ORDERED: ESOM40CA66 PO (23:22)
[2024-08-26] MEDS: normal saline 1000ml 1,000 ML IV SCH (23:46)
--- NOTE | 2024-08-26 23:54 | HISTORY AND PHYSICAL-Residence ---
History & Physical Providers to CC Resident Creating Document: JACOB GOLDEN, RES ~ History of Present Illness Primary Medical Doctor: DR. Farrell. ([facility]). Head Of Cytogenetics: Dr. Ambika Fajardo Reason for Admit\Complaint: Melena History of Present Illness Dr. Salvador Farrell. ([facility]). Head Of Cytogenetics: Dr. Ambika Fajardo 88 years old male patient with past medical history of dyslipidemia, peptic ulcer disease, prostate cancer s/p radiation, COPD, diabetes mellitus, hypertension, SUSU, AFib/P watchman came to the hospital transferred from [facility] with chief complaint of melena. The patient mentioned that this morning after he woke up he noticed a black tarry stool. He denies any apparent cause, denies use of NSAIDs or blood thinners stating that the patient got a watchman. Associated to this melena the patient also endorsed fatigue which started 24 hours ago, and mild shortness of breath mostly when the patient walks. The patient currently denies any chest pain, palpitations, abdominal pain, fever sensation, chills or urinary symptoms. 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 The patient uses a cane for walking long distances. 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 Allergies: Coded Allergies: Penicillins (Verified Allergy, Unknown, 08/26/24) TOUNGE EDEMA Home Medications Home Medications Active Pantoprazole Sodium 40 Mg Tablet.dr 40 Mg PO DAILY 30 Days Reported Esomeprazole Magnesium 40 Mg Capsule.dr 1 Cap PO BID Vitamin C (Ascorbic Acid) 500 Mg Tablet 1 Tab PO BID Simvastatin 40 Mg Tablet 1 Tab PO HS Losartan Potassium 50 Mg Tablet 1 Tab PO BID Atarax* (Hydroxyzine HCl) 25 Mg Tablet 1 Tab PO DAILY Prednisone* (Prednisone) 5 Mg Tablet 20 Mg PO DAILY Cozaar* (Losartan Potassium) 25 Mg Tablet 2 Tab PO DAILY 30 Days Coreg* (Carvedilol) 12.5 Mg Tablet 3.125 Mg PO BID 30 Days Past Medical History Past Medical History COPD. AFib s/p watchman. Obstructive sleep apnea on CPAP at night. Diabetes mellitus. Prostatic cancer s/p radiation. Past Surgical History Surgical History Comment Tonsillectomy. S/p watchman. Left knee replacement. 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 Last colonoscopy seven years ago showing two polyps-benign. S/P mass resection in the neck several years ago-benign. Past Social History Smoking: Quit greater than 1 year (As per patient he quit smoking in 1991. He used to smoke pack a day for 30 years.) Alcohol Use: Sober (As per patient he quit drinking one year ago. 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 HEENT: Conjunctive are pale, sclerae clear, no icterus, pupil is equal in both sides, reactive to light, no ear discharge, no pharyngeal erythema or an edema. Neck: Supple, no JVD, no lymphadenopathy and thyromegaly. Chest: Equal air entry on both lungs, presence of mild bilateral wheezing. Cardiovascular: S1-S2 regular sinus rhythm and, regular rate, no gallops, no rubs, no murmurs Abdomen: No visible peristalsis, Bowel sounds present on auscultation, soft, nontender, no guarding, no rigidity Extremities: Right BKA, no pedal edema, capillary refill intact, peripheral pulsations are intact in left lower extremity and popliteal RLE. Central Nervous System: No focal neurological deficits, no motor or sensory weakness in all 4 extremities, could move all 4 extremities, 2+ deep tendon reflexes, negative Babinski. Musculoskeletal: Absence of right lower extremity [id number], no scoliosis and back tenderness Skin: Mild redness and scratching brown above right knee, the patient states that the support of right prosthesis causes pruritus. Diagnostic Data Last Recorded Lab Results: 08/26/24214308/26/242143 Advance Care Planning Advanced Care plannin - 30 Minutes (I spent a total of 17 minutes on reviewing various resuscitative measures/ACP with the patient at the time of admission. The patient has decided on a full code status.) Additional Plan Assessment and plan: 88 years old male patient came to the hospital with chief complaint of melena. Severe anemia: Normocytic normochromic anemia: Upper GI bleeding: The patient came to the hospital with chief complaint of melena. The patient received 1 unit of blood at [facility]. The patient has a history of PUD. 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 Current hemoglobin level 7.3, hematocrit 21.4. BUN 40. Protonix drip. NPO for possible EGD. GI consult in a.m. H&H every 6 hours. Transfusion if hemoglobin levels dropped below seven. Acute exacerbation of COPD: The patient endorses mild shortness of breaths. Bilateral wheezing evidenced on physical exam. Methylprednisolone 30 mg IV b.i.d. Ceftriaxone 1 g daily. Azithromycin 500 mg IV daily. Culturelle 500 mmu b.i.d. DuoNebs q.6h scheduled. DuoNeb q.4h PRN. Incentive spirometry every 2 hours while awake. Acute kidney injury on CKD likely secondary to renal tubular stasis: Current creatinine levels 2.89, GFR 21. Follow-up urine lytes. NS at 80 mL/hour. Diabetes mellitus: Glucose levels 184 Hemoglobin A1c in 08/02/2024: 9. Started on hyperglycemic/hypoglycemic protocol. Lantus 16 units and low dose sliding scale short-acting insulin. Hypertension: Current blood pressure within reference range. On losartan 50 mg daily. AFib s/p watchman Code status: Full code DVT prophylaxis: SCDs Analgesia/sedation: None Line/tube: PIV GI prophylaxis: Protonix Nutrition: NPO PT: Ordered Prognosis: Guarded Disposition: The patient will be admitted to ortho floor. Jacob Reynolds Internal Medicine Resident [facility] I discussed patient with resident and agree with the plan and recomendattions above. Leia Ordoñez MD Tele medicine Date of Service: August 26, 2024 Billing Provider: LEIA ORDOÑEZ MD,JACOB DUCKWORTH, RES August 26, 2024 23:54 LEIA ORDOÑEZ MD August 27, 2024 03:49
[2024-08-27] VITALS (30 sets, daily range): BP systolic 101–141; BP diastolic 37–62; PULSE 52–89; RESP 11–20; TEMP 97.6–98.6; O2SAT 97–100
[2024-08-27] MEDS ORDERED: pantoprazole 40MG/NS 100ML BAG 100 ML IV SCH (00:05)
[2024-08-27] MEDS ORDERED: ipratropium/albuterol 3ml nebule NEB PRN (00:15)
[2024-08-27] MEDS ORDERED: DEXTROSE 15 GM of carb/4 tabs (each vial/BOTTLE has 4 tablets) PO PRN ×2 (00:30)
[2024-08-27] MEDS ORDERED: glucagon, human recombinant 1mg kit SUBCUT PRN (00:30)
[2024-08-27] MEDS ORDERED: dextrose 50%-water 50ml dispensing syringe IV PRN ×2 (00:30)
[2024-08-27] MEDS: pantoprazole 40MG/NS 100ML BAG 100 ML IV SCH (01:20)
[2024-08-27] MEDS: methylPREDNISolone sod succ/PF 40mg inj. IV ONE (01:24)
[2024-08-27] MEDS: ipratropium/albuterol 3ml nebule NEB SCH (01:37)
[2024-08-27 03:06] LABS: OSMOLALITY UA 273 MOSM/K (50-1400)
[2024-08-27 03:11] LABS: BASOPHILS % (AUTO) 0.3 % (0-1); EOSINOPHILS # (AUTO) 0.1 X10'3 (0-0.9); EOSINOPHILS % (AUTO) 3.4 % (0-6); HEMATOCRIT 22.1 % (42.0-52.0); HEMOGLOBIN 7.4 g/dl (14.0-17.9); LYMPHOCYTES # (AUTO) 0.7 X10'3 (1.1-4.8); LYMPHOCYTES % (AUTO) 19.4 % (21-51); MEAN CORPUSCULAR HGB CONC 33.4 g/dL (33.0-36.5); MEAN CORPUSCULAR VOLUME 89.8 FL (78-98); MONOCYTES # (AUTO) 0.2 X10'3 (0-0.9); MONOCYTES % (AUTO) 4.8 % (2-12); NEUTROPHILS # (AUTO) 2.6 X10'3 (1.8-7.7); NEUTROPHILS % (AUTO) 72.1 % (42-75); PLATELET COUNT 132 X10'3 (140-440); RED BLOOD COUNT 2.46 X10'6 (4.70-6.10); RED CELL DISTRIBUTION WIDTH 16.2 % (11.5-14.5); WHITE BLOOD COUNT 3.7 X10'3 (4.5-11.0)
[2024-08-27 03:15] LABS: BILIRUBIN,URINE NEGATIVE (Neg); CLARITY,URINE CLEAR (Clear); COLOR,URINE YELLOW (Yellow); GLUCOSE, URINE >=1000 mg/dl (Neg); KETONES,URINE NEGATIVE (Neg); LEUKOCYTE ESTERASE ,URINE NEGATIVE (Neg); NITRITES, URINE NEGATIVE (Neg); OCCULT BLOOD,URINE TRACE-INTACT (Neg); PROTEIN,URINE NEGATIVE (Neg); UROBILINOGEN,URINE 0.2 E.U/dL (0.2-1.0)
[2024-08-27 03:19] LABS: SODIUM,URINE RANDOM 57 MEQ/L; TOTAL PROTEIN,URINE RANDOM < 6.0 MG/DL
[2024-08-27 03:21] LABS: ALANINE AMINOTRANSFERASE 16 U/L (12-78); ALBUMIN 2.2 G/DL (3.4-5.0); ALBUMIN/GLOBULIN RATIO 0.8 (1.1-1.5); ALKALINE PHOSPHATASE 78 IU/L (46-116); ANION GAP 8 (8-16); ASPARTATE AMINO TRANSFERASE 15 U/L (10-37); BILIRUBIN,TOTAL 0.3 MG/DL (0.1-1.0); BLOOD UREA NITROGEN 36 MG/DL (7-18); CALCIUM 7.8 MG/DL (8.5-10.1); CHLORIDE 115 MMOL/L (99-107); CREATININE 2.57 MG/DL (0.60-1.10); GLUCOSE 185 MG/DL (70-104); MAGNESIUM 1.7 MG/DL (1.5-2.4); POTASSIUM 3.8 MMOL/L (3.5-5.1); SODIUM 144 MMOL/L (135-145); TOTAL PROTEIN 4.9 G/DL (6.4-8.2); eCRCL 21 ML/MIN; eGFR 24 ML/MIN
[2024-08-27 03:29] LABS: UA COLLECTION TYPE NON-SPECIFIED
[2024-08-27 03:30] LABS: BACTERIA,URINE FEW /HPF (Neg); RBC,URINE 0-2 /HPF (0-2); SQUAMOUS EPITHELIAL CELL,UR NONE SEEN /LPF (FEW); WBC,URINE 0-4 /HPF (0-4)
[2024-08-27 03:33] LABS: UA EOSINOPHILS NO EOS /HPF
--- NOTE | 2024-08-27 05:51 | ELECTROCARDIOGRAPH REPORT ---
[facility] Test Date: 2024-08-26 Test Time: 20:59:09 Pat Name: THOR LAZO Department: EMERGENCY ROOM Room: ORTHO 4024 A Gender: M Activity Coordinator: ANGELINA : 1935 Requested By: SANTOS SÁNCHEZ Order Number: [id number] Reading MD: Dr. Endy Gonzalez Measurements Intervals [place] Rate: 73 P: 0 [place]: 0 QRS: -9 QRSD: 121 T: 89 QT: 457 QTc: 504 Interpretive Statements Atrial fibrillation Paired ventricular premature complexes Nonspecific intraventricular conduction delay Probable anterior infarct, old Borderline repolarization abnormality Electronically Signed On 08-27-2024 15:46:[address] Endy Gonzalez Please click the below link to view image of tracing.
[2024-08-27] MEDS: CefTRIAXone/D5W-Rocephin 1gm 50 ML IV SCH (07:35)
[2024-08-27] MEDS: methylPREDNISolone sod succ/PF 40mg inj. IV SCH (07:36)
[2024-08-27] MEDS: K and/or MAG REPLACEMENT MC SCH (08:00)
[2024-08-27] MEDS: losartan 50mg tablet PO SCH (08:00)
[2024-08-27] MEDS: hydrOXYzine 25 MG tablet PO SCH (08:00)
[2024-08-27] MEDS ORDERED: losartan 50mg tablet PO SCH (08:00)
[2024-08-27] MEDS: INSULIN LISPRO 100 UNIT/ML INSULN.PEN MULTI-DOSE SQ SCH ×2 (08:09→18:00)
[2024-08-27] MEDS: azithromycin/NS 500mg/250ml 250 ML IV SCH (08:15)
[2024-08-27 09:34] LABS: MEAN PLATELET VOLUME 8.5 FL (7.4-10.4); WHITE BLOOD COUNT 2.1 X10'3 (4.5-11.0)
[2024-08-27 09:42] LABS: HEMATOCRIT 23.5 % (42.0-52.0); HEMOGLOBIN 7.8 g/dl (14.0-17.9); MEAN CORPUSCULAR HEMOGLOBIN 30.3 PG (27.0-31.0); MEAN CORPUSCULAR HGB CONC 33.3 g/dL (33.0-36.5); MEAN CORPUSCULAR VOLUME 90.8 FL (78-98); PLATELET COUNT 137 X10'3 (140-440); RED BLOOD COUNT 2.59 X10'6 (4.70-6.10); RED CELL DISTRIBUTION WIDTH 16.1 % (11.5-14.5)
--- NOTE | 2024-08-27 15:20 | PROGRESS NOTE- Residence ---
Progress Note - Resident Providers to CC Resident Creating Document: JOSELIN RODRIGUEZ CC: BRENDON LOPEZ MD ~ Antibiotic Timeout Antibiotic Ordered?: No Subjective Patient was examined at bedside today. He reports feeling well, denies abdominal pain, nausea or vomiting. He reports no bowel movements since admission Objective Vital Signs Date Time Temp Pulse Resp B/P (MAP) Pulse Ox O2 Delivery O2 Flow Rate FiO2 08/27/24 10:00 97.6 67 20 109/38 (61) 99 Room Air 08/27/24 07:29 0.0 08/27/24 07:26 21 Result Diagram: 08/27/24 0922 08/27/24 0300 General: awake, alert oriented to place, time, and person HEENT: some pallor present, no icterus, dry mucous membranes Neck: No masses and tenderness Resp: Unlabored. Lungs clear to auscultation bilaterally. Heart: Regular Rate and rhythm, normal S1 and S2 without murmur, rub or gallop Abdomen: Soft and non tender no organomegaly, no guarding and rigidity, bowel sounds present Neuro: No weakness in the upper and lower limb muscles, power of the muscles 5/5 bilateral upper and lower muscles, knee reflex present bilaterally. Cranial nerves intact Extremities: No cyanosis,clubbing or edema Skin: Warm and Dry. No lesions Assessment Assessment 88 years old male patient came to the hospital with chief complaint of melena. Admitted for evaluation and management of upper GI bleed and symptomatic anemia. Plan Plan Severe anemia Normocytic normochromic anemia Upper GI bleeding possibly 2/2 recurring angioectasia The patient came to the hospital with chief complaint of melena. 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 Transfusion if hemoglobin levels dropped below seven Dr. Cintron was consulted. Plan is for EGD today COPD, not in exacerbation Tolerating room air DC'd antibiotics and steroids DuoNebs q.4 p.r.n. CKD MAX ruled out Creatinine at baseline Urine lytes are unremarkable Continue monitoring BMP Diabetes mellitus Glucose levels >200 Hemoglobin A1c in 08/02/2024: 9. Continue hyperglycemic/hypoglycemic protocol. Lantus 16 units and low dose sliding scale short-acting insulin. Will add lispro 3 units Hypertension Current blood pressure within reference range. Continue losartan 50 mg daily. AFib s/p watchman Code status: Full code DVT prophylaxis: SCDs Analgesia/sedation: None Line/tube: PIV GI prophylaxis: Protonix Nutrition: NPO PT: Ordered Prognosis: Guarded Disposition: Continue care in ortho floor. Pending EGD today Date of Service: August 27, 2024 Billing Provider: BRENDON LOPEZ MD, LEONARDO LUIS August 27, 2024 15:20
[2024-08-27] MEDS ORDERED: MIDAZolam 1 MG/ML 5ML VIAL ONE (15:31)
[2024-08-27] MEDS ORDERED: fentaNYL/PF 50MCG/1 ML 2ML syringe ONE (15:31)
[2024-08-27] MEDS ORDERED: LIDOcaine 2% Viscous 15ml cup ONE (15:31)
[2024-08-27] MEDS ORDERED: simethicone 40mg/0.6ml oral drops 30ml ONE (15:57)
[2024-08-27] MEDS: epiNEPHrine 0.1mg/ml 10ml syringe ONE (17:40)
[2024-08-27] MEDS: insulin glargine (Lantus) pen - multi-dose SQ SCH (20:59)
[2024-08-27] MEDS: simvastatin 20mg tablet PO SCH (21:01)
[2024-08-27 21:25] LABS: HEMATOCRIT 22.5 % (42.0-52.0); HEMOGLOBIN 7.6 g/dl (14.0-17.9); MEAN CORPUSCULAR HEMOGLOBIN 30.5 PG (27.0-31.0); MEAN CORPUSCULAR HGB CONC 33.6 g/dL (33.0-36.5); MEAN CORPUSCULAR VOLUME 90.8 FL (78-98); MEAN PLATELET VOLUME 8.1 FL (7.4-10.4); PLATELET COUNT 140 X10'3 (140-440); RED BLOOD COUNT 2.48 X10'6 (4.70-6.10); RED CELL DISTRIBUTION WIDTH 16.2 % (11.5-14.5); WHITE BLOOD COUNT 2.5 X10'3 (4.5-11.0)
[2024-08-27 21:43] LABS: CHOL/HDL RATIO 3.5 (0.00-4.99); CHOLESTEROL 136 MG/DL (0-200); HDL CHOLESTEROL 39 MG/DL (35-60); LDL CHOLESTEROL 80 MG/DL (50-100); TRIGLYCERIDES 67 MG/DL (20-135)
[2024-08-28] VITALS (18 sets, daily range): BP systolic 84–118; BP diastolic 32–67; PULSE 55–85; RESP 14–20; TEMP 97.3–98.3; O2SAT 95–99
[2024-08-28 05:33] LABS: BASOPHILS % (AUTO) 0.2 % (0-1); EOSINOPHILS % (AUTO) 0.1 % (0-6); HEMOGLOBIN 7.1 g/dl (14.0-17.9); LYMPHOCYTES # (AUTO) 0.7 X10'3 (1.1-4.8); LYMPHOCYTES % (AUTO) 18.3 % (21-51); MEAN CORPUSCULAR HEMOGLOBIN 30.5 PG (27.0-31.0); MEAN CORPUSCULAR HGB CONC 33.6 g/dL (33.0-36.5); MEAN CORPUSCULAR VOLUME 90.8 FL (78-98); MEAN PLATELET VOLUME 8.3 FL (7.4-10.4); MONOCYTES # (AUTO) 0.3 X10'3 (0-0.9); MONOCYTES % (AUTO) 8.5 % (2-12); NEUTROPHILS # (AUTO) 2.8 X10'3 (1.8-7.7); NEUTROPHILS % (AUTO) 72.9 % (42-75); PLATELET COUNT 142 X10'3 (140-440); RED BLOOD COUNT 2.32 X10'6 (4.70-6.10); RED CELL DISTRIBUTION WIDTH 15.9 % (11.5-14.5); WHITE BLOOD COUNT 3.9 X10'3 (4.5-11.0)
[2024-08-28 05:47] LABS: HEMATOCRIT 21.1 % (42.0-52.0)
[2024-08-28 05:51] LABS: ALANINE AMINOTRANSFERASE 16 U/L (12-78); ALBUMIN 2.2 G/DL (3.4-5.0); ALBUMIN/GLOBULIN RATIO 0.8 (1.1-1.5); ALKALINE PHOSPHATASE 74 IU/L (46-116); ANION GAP 12 (8-16); ASPARTATE AMINO TRANSFERASE 15 U/L (10-37); BILIRUBIN,TOTAL 0.2 MG/DL (0.1-1.0); BLOOD UREA NITROGEN 40 MG/DL (7-18); BUN/CREATININE RATIO 15.7 (10.0-20.0); CALCIUM 8.2 MG/DL (8.5-10.1); CHLORIDE 113 MMOL/L (99-107); CREATININE 2.54 MG/DL (0.60-1.10); GLUCOSE 231 MG/DL (70-104); POTASSIUM 4.1 MMOL/L (3.5-5.1); SODIUM 144 MMOL/L (135-145); TOTAL CARBON DIOXIDE 19.3 MMOL/L (24-32); TOTAL PROTEIN 5.1 G/DL (6.4-8.2); eCRCL 21 ML/MIN; eGFR 24 ML/MIN
--- NOTE | 2024-08-28 06:18 | CONSULTATION ---
DATE OF CONSULTATION: 08/27/2024 DICTATING PHYSICIAN: Jluis Cintron MD REFERRING PHYSICIAN: Hospital Services. REASON FOR CONSULTATION: GI bleeding. HISTORY OF PRESENT ILLNESS: The patient is admitted with melena. Denies any hematemesis, fever, chills or rigors. PAST MEDICAL HISTORY: Dyslipidemia, peptic ulcer disease, prostate cancer, COPD, diabetes, hypertension, SUSU, A-fib, Watchman procedure. SOCIAL HISTORY: Nonsmoker, nondrinker. FAMILY HISTORY: Noncontributory. MEDICATIONS: Reviewed from the chart. REVIEW OF SYSTEMS: Negative for cardiovascular, respiratory, genitourinary, neurologic, or endocrine complaints. PHYSICAL EXAMINATION: GENERAL: Conscious, alert, oriented. HEENT: Pallor present. Icterus absent. CHEST: Clear. HEART: S1, S2, regular. ABDOMEN: Soft IMAGING STUDIES: Abdominal CT from 08/26/2023; bilateral pleural effusion, renal cysts, mesenteric haziness. EGD from previous admission, bleeding angioectasia in the stomach, which was treated with bipolar cautery. ASSESSMENT AND PLAN: GI bleeding. We will proceed with upper endoscopy. Risks, benefits and alternatives discussed. The patient understood by him. Jluis Cintron MD TID: [id number] RECEIPT: [id number] /ESTEFANY/JAIME
[2024-08-28 10:01] LABS: MEAN CORPUSCULAR HEMOGLOBIN 30.3 PG (27.0-31.0); MEAN CORPUSCULAR HGB CONC 33.4 g/dL (33.0-36.5); MEAN CORPUSCULAR VOLUME 90.7 FL (78-98); MEAN PLATELET VOLUME 8.3 FL (7.4-10.4); PLATELET COUNT 146 X10'3 (140-440); RED BLOOD COUNT 2.28 X10'6 (4.70-6.10); RED CELL DISTRIBUTION WIDTH 16.3 % (11.5-14.5); WHITE BLOOD COUNT 4.9 X10'3 (4.5-11.0)
[2024-08-28 10:07] LABS: HEMOGLOBIN 6.9 g/dl (14.0-17.9)
[2024-08-28 10:08] LABS: HEMATOCRIT 20.7 % (42.0-52.0)
--- NOTE | 2024-08-28 20:19 | PROGRESS NOTE ---
Daily Progress Note Providers to CC No new complaint today is getting 1 unit of blood ~ Central Line/PICC still needed: No Mcfadden-Non Protocol Mcfadden Indications Met/Not Met: F/C Indications Not Met Antibiotic Timeout Antibiotic Ordered?: No MRSA Education MRSA Education Provided to pt: No Subjective As above Objective Vital Signs Date Time Temp Pulse Resp B/P (MAP) Pulse Ox O2 Delivery O2 Flow Rate FiO2 08/28/24 20:01 58 16 Room Air 0.0 21 08/28/24 19:56 95 08/28/24 18:15 98.1 101/34 Vital signs, stable ,afebrile. Pulse Oximetry reflects adequate oxygenation. BMI is General: well developed, well nourished. Awake , alert, and oriented x4, resting comfortably in the bed, in no acute distress . Skin: Warm, dry, no pallor, no rash or petechiae. HEENT: Atraumatic, normocephalic, EOMI, anicteric sclera B; pink conjunctiva; PERRLA, normal oropharynx, moist oral and nasal mucosa. Tympanic membrane , nose , throat clear. Neck: Trachea midline. Supple, full range of motion, no JVD, bruit , hepatojugular reflex , lymphadenopathy or masses, or other lesions Cardiac: Regular rhythm, regular rate no murmurs, rubs, or gallops. Normal S1 and S2, no S3 noticed. PMI is normal. Respiratory: Equal breath sounds bilaterally, no tachypnea; lungs clear to auscultation bilaterally, no wheezing ,rub or rales, or crackles. Chest wall is symmetric and without deformity. No signs of trauma. Chest wall is nontender. No signs of respiratory distress. Resonance is normal upon percussion bilaterally. Gastrointestinal: Abdomen symmetric, non-distended, soft, non-tender, normal bowel sounds x4 quadrant, normoactive, no hepatosplenomegaly , no masses , no bruit, no flank pain bilaterally. No voluntary guarding, rebound, or rigidity. No tenderness to percussion. No pulsatile masses. Equal femoral pulses. No Robertson's sign or McBurney point tenderness. Back; no CVA tenderness bilaterally, no deformities. Neck and back are without deformity as well. No tenderness noted on palpation of the spinous processes. Spinous processes are midline. Cervical, thoracic, and lumbar paraspinal muscles are not tender and are without spasm. : normal external genitalia, without lesions, swelling, masses or tenderness. Musculoskeletal: Extremities, normal range of motion, non-tender, muscle strength 5/5 x 4. Negative Homans signs bilaterally on lower extremity. Distal pulses full symmetrical, no clubbing, cyanosis , edema. Neurological: Speech is clear, alert, and oriented x 4. No motor or sensory deficit, deep tendon reflexes normal, cerebellar intact. Cranial nerves II-XII intact. Psych: Alert and or appropriate, normal affect. Vascular: Good distal pulses, which are equal x4; capillary refill less than 2 seconds. Lymphatic, no lymphadenopathy. Result Diagram: 08/28/24 0951 08/28/24 0445 Problem\Assessment\Plan Assessment/plan Severe anemia, transfused 1 unit of blood today Normocytic normochromic anemia Upper GI bleeding, resolved, EGD done yesterday by GI doctor The patient came to the hospital with chief complaint of melena. The patient received 1 unit of blood at [facility] Recent EGD performed on 08/03/2024 showed single bleeding angioectasia in the stomach, treated with bipolar cautery Hemoglobin stable above 7 On Protonix drip H&H every 6 hours. Transfusion if hemoglobin levels dropped below seven Dr. Cintron was consulted. EGD done yesterday COPD, not in exacerbation Tolerating room air DC'd antibiotics and steroids DuoNebs q.4 p.r.n. CKD Creatinine at baseline Urine lytes are unremarkable Continue monitoring BMP Diabetes mellitus Glucose levels >200 Hemoglobin A1c in 08/02/2024: 9. Continue hyperglycemic/hypoglycemic protocol. Lantus 16 units and low dose sliding scale short-acting insulin. Will add lispro 3 units Hypertension Current blood pressure within reference range. Continue losartan 50 mg daily. AFib s/p watchman Code status: Full code DVT prophylaxis: SCDs Analgesia/sedation: None Line/tube: PIV GI prophylaxis: Protonix Nutrition: NPO PT: Ordered Prognosis: Guarded Sepsis Screening Reassessment Date: August 28, 2024 Date of Service: August 28, 2024 Billing Provider: MERY TOBIAS MD Common Visit Codes: [id number] INP/OBS CARE(HIGH) MERY TOBIAS MD August 28, 2024 20:19
[2024-08-29] VITALS (8 sets, daily range): BP systolic 98–123; BP diastolic 46–59; PULSE 52–64; RESP 15–18; TEMP 97.6–97.7; O2SAT 95–98
[2024-08-29 05:14] LABS: ALANINE AMINOTRANSFERASE 18 U/L (12-78); ALBUMIN 2.3 G/DL (3.4-5.0); ALBUMIN/GLOBULIN RATIO 0.9 (1.1-1.5); ALKALINE PHOSPHATASE 75 IU/L (46-116); ANION GAP 10 (8-16); ASPARTATE AMINO TRANSFERASE 19 U/L (10-37); BILIRUBIN,TOTAL 0.3 MG/DL (0.1-1.0); BLOOD UREA NITROGEN 34 MG/DL (7-18); BUN/CREATININE RATIO 14.5 (10.0-20.0); CALCIUM 8.2 MG/DL (8.5-10.1); CHLORIDE 114 MMOL/L (99-107); CREATININE 2.35 MG/DL (0.60-1.10); GLUCOSE 99 MG/DL (70-104); MAGNESIUM 1.9 MG/DL (1.5-2.4); POTASSIUM 3.8 MMOL/L (3.5-5.1); SODIUM 145 MMOL/L (135-145); TOTAL CARBON DIOXIDE 21.2 MMOL/L (24-32); eCRCL 22 ML/MIN; eGFR 26 ML/MIN
[2024-08-29 05:18] LABS: BASOPHILS % (AUTO) 0.4 % (0-1); EOSINOPHILS # (AUTO) 0.1 X10'3 (0-0.9); EOSINOPHILS % (AUTO) 2.8 % (0-6); HEMATOCRIT 24.6 % (42.0-52.0); HEMOGLOBIN 8.3 g/dl (14.0-17.9); LYMPHOCYTES # (AUTO) 1.1 X10'3 (1.1-4.8); LYMPHOCYTES % (AUTO) 26.2 % (21-51); MEAN CORPUSCULAR HEMOGLOBIN 30.7 PG (27.0-31.0); MEAN CORPUSCULAR HGB CONC 33.9 g/dL (33.0-36.5); MEAN CORPUSCULAR VOLUME 90.6 FL (78-98); MEAN PLATELET VOLUME 7.9 FL (7.4-10.4); MONOCYTES # (AUTO) 0.3 X10'3 (0-0.9); MONOCYTES % (AUTO) 7.5 % (2-12); NEUTROPHILS # (AUTO) 2.6 X10'3 (1.8-7.7); NEUTROPHILS % (AUTO) 63.1 % (42-75); PLATELET COUNT 150 X10'3 (140-440); RED BLOOD COUNT 2.72 X10'6 (4.70-6.10); RED CELL DISTRIBUTION WIDTH 15.5 % (11.5-14.5); WHITE BLOOD COUNT 4.1 X10'3 (4.5-11.0)
--- NOTE | 2024-08-29 11:57 | RADIOLOGY REPORT ---
CT CT HEAD Indication: cva EXAM DATE: 08/29/2024 11:31 AM COMPARISON: CT CT HEAD on DOS: 08/26/23 TECHNIQUE: CT of the head without intravenous contrast. RADIATION DOSE: CTDIvol: 62.3 mGy, DLP: 1144 mGy*cm FINDINGS: There is no intracranial hemorrhage. There is no extra-axial fluid.m pituitary/sellar lesion measurin g 1.9 cm lateralized towards the left. The ventricles are midline and normal in size. Basilar cistern s are patent. There are mild periventricular and subcortical white matter chronic microvascular ische thalia changes. Mild global cerebral volume loss. Bilateral mastoid effusions, [id number]-osob-left. Paranasal sinuses are well pneumatized. IMPRESSION: 1. No intracranial hemorrhage 2. 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 Recommend MRI brain with and without contrast to evaluate. 3. Mild chronic microvascular ischemic changes. 4. Bilateral mastoid effusions.
[2024-08-29 14:42] LABS: OCCULT BLOOD STOOL POSITIVE (Neg)
[2024-08-29] MEDS: acetaminophen 325mg tablet PO PRN (16:40)
--- NOTE | 2024-08-29 19:17 | DISCHARGE SUMMARY ---
Discharge Summary Providers to No new complaint today, resting comfortably in the bed ~ Discharge Summary Assessment Acute GI bleeding Post hemorrhagic anemia Status post gastroscopy, and clipping of AVM malformations COPD. In exacerbation AFib s/p watchman. Acute kidney injury secondary to renal tubular stasis Obstructive sleep apnea on CPAP at night. Diabetes mellitus. Prostatic cancer s/p radiation. Hypertension Admission Diagnosis: UPPER GI BLEED Admission Diagnosis Comment: Acute GI bleeding Post hemorrhagic anemia Status post gastroscopy, and clipping of AVM malformations COPD. In exacerbation AFib s/p watchman. Acute kidney injury secondary to renal tubular stasis Obstructive sleep apnea on CPAP at night. Diabetes mellitus. Prostatic cancer s/p radiation. Hypertension Hospital Course DATE OF ADMISSION: August 26, 2024 DATE OF DISCHARGE: August 29, 2024 Discharge Diagnosis\Comment: Acute GI bleeding Post hemorrhagic anemia Status post gastroscopy, and clipping of AVM malformations COPD. In exacerbation AFib s/p watchman. Acute kidney injury secondary to renal tubular stasis Obstructive sleep apnea on CPAP at night. Diabetes mellitus. Prostatic cancer s/p radiation. Hypertension Operations\Procedures: EGD, associated with clipping of AVM malformations Consultants: GI doctor Complications: Non Condition on DC: Stable Discharge Summary: 88 years old male patient with past medical history of dyslipidemia, peptic ulcer disease, prostate cancer s/p radiation, COPD, diabetes mellitus, hypertension, SUSU, AFib/P watchman came to the hospital transferred from [facility] with chief complaint of melena. The patient mentioned that this morning after he woke up he noticed a black tarry stool. He denies any apparent cause, denies use of NSAIDs or blood thinners stating that the patient got a watchman. Associated to this melena the patient also endorsed fatigue which started 24 hours ago, and mild shortness of breath mostly when the patient walks. The patient currently denies any chest pain, palpitations, abdominal pain, fever sensation, chills or urinary symptoms. Recent EGD performed on 08/03/2024 showed single bleeding angioectasia in the stomach, treated with bipolar cautery.The patient uses a cane for walking long distances. 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 After admission patient was extensively evaluated and treated, today he feels fine asking to be discharged home he will be discharged in stable condition follow-up PCP GI doctor in two three days, return to emergency department if condition worsens, today on physical exam Vital signs, stable ,afebrile. Pulse O ximetry reflects adequate oxygenation. General: well developed, well nourished. Awake , alert, and oriented x4, resting comfortably in the bed, in no acute distress . Skin: Warm, dry, no pallor, no rash or petechiae. HEENT: Atraumatic, normocephalic, EOMI, anicteric sclera B; pink conjunctiva; PERRLA, normal oropharynx, moist oral and nasal mucosa. Tympanic membrane , nose , throat clear. Neck: Trachea midline. Supple, full range of motion, no JVD, bruit , hepatojugular reflex , lymphadenopathy or masses, or other lesions Cardiac: Regular rhythm, regular rate no murmurs, rubs, or gallops. Normal S1 and S2, no S3 noticed. PMI is normal. Respiratory: Equal breath sounds bilaterally, no tachypnea; lungs clear to auscultation bilaterally, no wheezing ,rub or rales, or crackles. Chest wall is symmetric and without deformity. No signs of trauma. Chest wall is nontender. No signs of respiratory distress. Resonance is normal upon percussion bilaterally. Gastrointestinal: Abdomen symmetric, non-distended, soft, non-tender, normal bowel sounds x4 quadrant, normoactive, no hepatosplenomegaly , no masses , no bruit, no flank pain bilaterally. No voluntary guarding, rebound, or rigidity. No tenderness to percussion. No pulsatile masses. Equal femoral pulses. No Robertson's sign or McBurney point tenderness. Back; no CVA tenderness bilaterally, no deformities. Neck and back are without deformity as well. No tenderness noted on palpation of the spinous processes. Spinous processes are midline. Cervical, thoracic, and lumbar paraspinal muscles are not tender and are without spasm. : normal external genitalia, without lesions, swelling, masses or tenderness. Musculoskeletal: Extremities, normal range of motion, non-tender, muscle strength 5/5 x 4. Negative Homans signs bilaterally on lower extremity. Distal pulses full symmetrical, no clubbing, cyanosis , edema. Neurological: Speech is clear, alert, and oriented x 4. No motor or sensory deficit, deep tendon reflexes normal, cerebellar intact. Cranial nerves II-XII intact. Psych: Alert and or appropriate, normal affect. Vascular: Good distal pulses, which are equal x4; capillary refill less than 2 seconds. Lymphatic, no lymphadenopathy. *Problems/Diagnosis: (1) Anemia Status: Acute (2) Diabetes mellitus Status: Chronic (3) Afib Status: Chronic (4) Acute kidney injury superimposed on CKD Status: Acute (5) GI bleed Status: Resolved Total Time Spent on D/C: > 30 Minutes Date of Service: August 29, 2024 Billing Provider: MERY TOBIAS MD Common Visit Codes: [id number] DISCH DAY >30min MERY TOBIAS MD August 29, 2024 19:11
--- NOTE | 2024-08-30 13:07 | RADIOLOGY REPORT ---
CLINICAL INDICATION: Pituitary mass COMPARISON: CT CT HEAD on DOS: 08/29/24, CT CT HEAD on DOS: 08/26/23 TECHNIQUE: Multisequence multiplanar MRI images of the brain were obtained without contrast. FINDINGS: No acute infarct or hemorrhage. No midline shift. Scattered areas of T2/FLAIR hyperintense signal in the periventricular and subcortical white matter are nonspecific, but most likely sequelae of chronic small vessel ischemic disease. Ventricles and sulci are within normal limits. Basal ciste rns are patent. Again seen is an enlarged, lobulated appearing pituitary gland, causing mild expansio n of the sella, measuring up to 1.1 cm in craniocaudal dimension, 1.5 cm in AP dimension, and 2 cm in transverse dimension, causing elevation of the infundibulum. Posterior pituitary bright spot is not visualized. Limited evaluation without IV contrast. Cerebellum, brainstem, and midline structures are otherwise within normal limits. Mild mucosal thickening of the paranasal sinuses. Fluid signal in th e mastoid air cells bilaterally. Orbits are grossly unremarkable. IMPRESSION: 1. Enlarged, mildly lobulated pituitary gland as described above, suspected pituitary mass, although not well evaluated without IV contrast. Correlate with clinical findings. 2. Fluid signal in the mastoid air cells bilaterally. Correlate clinically to exclude mastoiditis. 3. No acute infarct. 4. Additional nonacute findings as described above.
== END 2024-08-29 18:45 | disposition home or self-care (01) | DRG 377 ==
LOC: ER 20:56 → ED HOLD 23:06 → EDBEDREQ 08-27 02:27 → ORTHO 4S 08-27 04:27 → SUR 3N 08-29 10:06
PROVIDERS: ADMIT Internal Medicine Pulmonary Disease; ATTEND Family Medicine
PROC: 0W3P8ZZ Control Bleeding in Gastrointestinal Tract, Via Natural or Artificial Opening Endoscopic (ICD-10-PCS; principal; 2024-08-27)
PROC: 30233N1 Transfusion of Nonautologous Red Blood Cells into Peripheral Vein, Percutaneous Approach (ICD-10-PCS; 2024-08-28)
DX: K31.811 Angiodysplasia of stomach and duodenum with bleeding (principal); N17.0 Acute kidney failure with tubular necrosis; J44.1 Chronic obstructive pulmonary disease with (acute) exacerbation; N18.9 Chronic kidney disease, unspecified; I12.9 Hypertensive chronic kidney disease with stage 1 through stage 4 chronic kidney disease, or unspecified chronic kidney disease; E11.22 Type 2 diabetes mellitus with diabetic chronic kidney disease; I25.10 Atherosclerotic heart disease of native coronary artery without angina pectoris; E78.5 Hyperlipidemia, unspecified; Z20.822 Contact with and (suspected) exposure to COVID-19; D50.0 Iron deficiency anemia secondary to blood loss (chronic); Z96.652 Presence of left artificial knee joint; G47.33 Obstructive sleep apnea (adult) (pediatric); I48.91 Unspecified atrial fibrillation; Z88.0 Allergy status to penicillin; Z79.899 Other long term (current) drug therapy; Z85.46 Personal history of malignant neoplasm of prostate; Z92.21 Personal history of antineoplastic chemotherapy; Z92.3 Personal history of irradiation; Z87.891 Personal history of nicotine dependence; Z95.818 Presence of other cardiac implants and grafts
CPT/HCPCS: 36415; 36430; 43255; 70450; 70551; 80053; 80061; 81001; 82272; 82570; 82948; 83735; 83930; 83935; 84145; 84156; 84300; 84540; 85025; 85027; 86885; 86900; 86901; 86920; 87081; 87207; 87811; 93005; 94640; 94760; 97116; 97161; 97530; 99152; 99291; A4620; G0378; J0456; J0696; J1815; J2250; J2470; J2919; J3010; J7030; J7040; P9016; Q0177

== ENCOUNTER 2025-03-26 14:06 | Inpatient (IN) | payer MEDICARE ==
[~2025-03-26] VITALS: Ht 177.8 cm; Wt 85.0 kg
[~2025-03-26 14:06] MED LIST changes: +ASCO500T20 PO; +BUDE10.27 PO; -CARV-50 PO; -CEFD300C3 PO; +COR3.125T PO; +DOCU100C40 PO; -EMPA10TA PO; +ESOM40CA49 PO; +FERR-116 PO; -FERR325T28 PO; +GLIP10TA18 PO; -LACT1CAP26 PO; +LACT1CAP65 PO; -LOSA-415 PO; +MULT-25 PO; -PANT40TA54 PO; -PRED5TAB PO; -SIMV-341 PO; +SIMV-45 PO; -SITA50TA PO; +SITA50TA7 PO; -VITC500T PO
--- NOTE | 2025-03-26 14:26 | ELECTROCARDIOGRAPH REPORT ---
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
--- NOTE | 2025-03-26 14:33 | Physician Documentation ---
History of Present Illness General Stated Complaint: SOB Time Seen by MD: 14:16 Primary Medical Doctor: DR. Farrell. ([facility]). Contractor General Engineering: Dr. Ambika Fajardo History of Present Illness Initial Comments This is a 89-year-old gentleman who presents for evaluation of shortness a breath for the last three weeks. No obvious trigger provocation. Normally on 3 L of oxygen, did not have to increase in his oxygen consumption. He states that the shortness a breath is exertional, not positional. Not accompanied by chest pain. He went to Dr. Lucille Fajardo office earlier today and was told to go straight to the emergency department. Denies any fever or chills. Medication Reconciliation Allergies: Coded Allergies: Penicillins (Verified Allergy, Unknown, 01/16/25) TOUNGE EDEMA Scheduled Ascorbic Acid (Vitamin C), 1 TAB PO BID, (Reported) Budesonide/Formoterol Fumarate (Budesonide-Formoterol 80-4.5), 2 PUFFS PO Q12H Carvedilol (Carvedilol), 3.125 MG PO BID Docusate Sodium (Docusate Sodium), 1 CAP PO DAILY, (Reported) Esomeprazole Magnesium (Nexium), 1 CAP PO BID, (Reported) Ferrous Sulfate (Iron), 1 TAB PO DAILY, (Reported) Glipizide (Glipizide), 1 TAB PO DAILY, (Reported) Lactobacillus Acidophilus (Probiotic), 1 CAP PO DAILY, (Reported) Multivitamin with Folic Acid (Thera Tablet), 1 EACH PO DAILY Simvastatin (Simvastatin), 1 TAB PO HS, (Reported) Sitagliptin Phosphate* (Januvia*), 1 TAB PO DAILY, (Reported) Past Medical History Past Medical History: Atrial Fibrillation, Coronary Artery Disease, Hypertension, Peptic Ulcer Disease, Acute Kidney Injury, Chronic Kidney Disease, Diabetes, *CANCER* Past Surgical History: orthopedic surgeries Smoking: Quit greater than 1 year Alcohol Use: Sober Drug Use: none Lives with: Spouse Lives In: Home Occupation: retired Review of Systems ROS 10 point review of systems was performed and unless noted above in HPI is negative for acute process/complaint. Physical Exam Physical Exam Physical Exam GENERAL: Awake, alert, oriented, GCS 15, no apparent distress, non-toxic appe aring, answers questions, follows commands appropriately. Examined immediately upon arrival in bed 3 HEENT: Atraumatic, normocephalic, pupils equal, extraocular muscles intact, sclerae anicteric, mucus membranes moist, oropharynx is clear, no stridor. NECK: supple, full active range of motion, trachea midline, no thyromegaly, no lymphadenopathy, no JVD. CARDIOVASCULAR: regular rate/rhythm, no murmurs/gallops/rubs, Pulses are 2+ in all extremities and symmetric. Capillary refill less than 2 seconds. PULMONARY: Tachypneic and labored, decreased air movement ,no respiratory distress, speaking in very short sentences, coarse breath sounds bilaterally, bilateral wheezing, no ronchi, no rales, notable accessory muscle use. GASTROINTESTINAL: Soft, non-tender, non-distended, normal active bowel sounds, no organomegaly, no pulsatile masses, no CVA tenderness. NEUROLOGIC: Lucid with normal mental status. Normal facial symmetry. Moves all extremities symmetrically and with purpose. No truncal ataxia. Speech is fluid without evidence of dysarthria or aphasia, no focal deficits appreciated. MUSCULOSKELETAL: There is full range of motion of all extremities. There is no joint pain or joint swelling or joint erythema. There is no muscle pain or tenderness or swelling. EXTREMITIES: warm, well-perfused, no cyanosis, no clubbing, bilateral pitting 3+ edema, no acute deformities. Skin: warm, dry, no rashes or lesions, no jaundice, no petechiae orpurpura. No ecchymosis. PSYCHIATRIC: Normal affect, normal insight, normal concentration. Focused exam: [] Progress Results/Orders Results/Orders Orders - EMMANUEL MORILLO DO Chest,Single View (03/26/25 14:23) Monitor (03/26/25 14:23) Saline Lock (03/26/25 14:23) Completed Orders - EMMANUEL MORILLO DO Electrocardiogram (03/26/25 14:23) Cbc/Diff (03/26/25 14:23) ESR (03/26/25 14:23) C-Reactive Protein (03/26/25 14:23) Pt Inr (03/26/25 14:23) PTT (03/26/25 14:23) Chest,Single View (03/26/25 14:23) MG (03/26/25 14:23) CMP (03/26/25 14:23) Hs Troponin I W Calculations (03/26/25 14:23) Hs Troponin I W Calculations (03/26/25 16:23) PBNP (03/26/25 14:41) Vital Signs 03/26/25 03/26/25 03/26/25 03/26/25 14:23 15:21 15:22 16:34 Temp 97.7 Pulse 72 68 68 Resp 19 18 19 B/P (MAP) 128/66 140/66 (90) 140/69 (92) Pulse Ox 97 100 99 O2 Flow Rate 5.0 5.0 Laboratory Tests Test 03/26/25 14:41 03/26/25 16:15 White Blood Count 13.4 H Red Blood Count 3.15 L Hemoglobin 7.7 L Hematocrit 24.5 L Mean Corpuscular Volume 77.8 L Mean Corpuscular Hemoglobin 24.5 L Mean Corpuscular Hemoglobin Concent 31.5 L Red Cell Distribution Width 17.8 H Platelet Count 439 Mean Platelet Volume 7.4 Neutrophils (%) (Auto) 83.6 H Lymphocytes (%) (Auto) 5.5 L Monocytes (%) (Auto) 10.8 Eosinophils (%) (Auto) 0 Basophils (%) (Auto) 0.1 Neutrophils # (Auto) 11.2 H Lymphocytes # (Auto) 0.7 L Monocytes # (Auto) 1.4 H Eosinophils # (Auto) 0.0 Basophils # (Auto) 0.0 CBC Comment Erythrocyte Sedimentation Rate 70 H Prothrombin Time 11.3 INR International Normalized Ratio 1.1 Activated Partial Thromboplast Time 23 Coagulation Comments Sodium Level 132 L Potassium Level 5.3 H Chloride Level 99 Carbon Dioxide Level 26.0 Anion Gap 7 L Blood Urea Nitrogen 48 H Creatinine 2.25 H Estimated GFR/1.73 m2 28 BUN/Creatinine Ratio 21.3 H Glucose Level 455 *H Calcium Level 8.5 Magnesium Level 2.2 Total Bilirubin 0.3 Aspartate Amino Transf (AST/SGOT) 25 Alanine Aminotransferase (ALT/SGPT) 86 H Alkaline Phosphatase 143 H Troponin I High Sensitivity 42 43 C-Reactive Protein 4.93 H Pro-B-Type Natriuretic Peptide > 33826 H Total Protein 6.8 Albumin 2.0 L Globulin 4.8 H Albumin/Globulin Ratio 0.4 L Chemistry Comments Troponin I High Sens Percent Delta 2 Troponin I Hi Sens Absolute Change 1 Medical Decision Making Additional information obtaine: old records, family Findings Facility Status: ED Holds, RME process The plan was discussed with the patient, who demonstrates clear understanding of the plan and is in agreement with the plan unless otherwise noted in the chart. All questions have been answered, all concerns were addressed unless otherwise documented. I was available throughout their ED stay for frequent reassessment and questions. Differential Diagnoses (considered and possible or likely): [COPD exacerbation, CHF exacerbation, ACS, PE, less likely pneumothorax] ??Differential Diagnoses (considered and unlikely, not requiring evaluation currently): [No evidence of trauma] MDM Data Please see [facility] for the following: Independent Historians and external Records Review. Historian: [Patient] Independent Historians: ?[Record review] Medication Management: [Reviewed medication list] Social History and determinants: [Reviewed] Please see the body of the note for the following: Any independent interpretations of ECG, imaging studies. All vitals signs/haemodynamics, ordered tests were independently reviewed and interpreted by myself. Nursing triage complaint and vitals reviewed, additional nursing notes were reviewed as available and I agree unless otherwise noted or documented in co ntradiction in the chart Vital Signs: Independently reviewed Labs: Independently interpreted Imaging: Independently interpreted Old Medical Records: Independently reviewed, see [facility] for relevant summary and information Pulse Oximetry: 97% on baseline 3 L] interpreted as [normal] by me [Apparel Patternmaker: [Atrial fibrillation] reviewed and interpreted by me] Additionally notably showing: [Hemodynamics reviewed. Patient is on baseline oxygen, oxygenating well, no evidence of hypotension. No evidence of tachyc ardia. Metabolic panel shows anemia, slight white count, 84% neutrophils. Slightly elevated ESR. Chemistry notable for elevated glucose, no gap, mild hyperkalemia, dehydration, MAX versus CKD. CRP is elevated. Initial troponin is normal. Coagulation panel is unremarkable. Chest x-ray shows cardiomegaly with pulmonary vascular congestion bilateral femoral effusions. ] Tests considered but not ordered include: [Echocardiogram can be done on an inpatient basis] Social Determinants of Health Impact: Patient was evaluated in [facility], [facility] [place] to healthcare due to below par ratio of patient to medical providers. [] Comorbid Conditions Impacting Present Evaluation and Care/Treatment: [CHF] Management Discussions with other Healthcare Providers: [Hospitalist regarding admission] Treatment and Disposition Medication Management (Given or considered): []. See EMR for details Consideration for Hospitalization/Escalation/Deescalation of Care: Admission for observation has been considered, and appears to be necessary for further management of his dyspnea ?ED Course:?[No significant clinical deterioration, no significant improvement.] ?Shared decision making:?[] Code status:?FULL Please see the full Electronic Medical Record for full details of nursing documentation, medications list, other records of complete past medical history and conditions, vital signs, laboratory studies, and any radiologic study interpretations by radiologists. Portions of this note were completed using [employer] dictation software and as a result there may exist minor errors in spelling. I have reviewed elements of past family and social history and agree as included in note. Differential Diagnosis See body of may note for differential diagnosis Departure Disposition: 01 HOME / SELF CARE / HOMELESS Impression: Primary Impression: Acute exacerbation of CHF (congestive heart failure) Additional Impressions: Shortness of breath Anemia Referrals: NO PRIMARY CARE PROVIDER (PCP) Education Educated: Patient Educated regarding: diagnosis, treatment, prognosis, need for follow up Signature Scribe Signature: No scribe Attestation: Date: Mar 26, 2025 Time: 14:33 This note accurately reflects clinical decisions, work performed by myself, DO ILIA Bryan NICHOLAS M DO Mar 26, 2025 14:33
--- NOTE | 2025-03-26 14:46 | RADIOLOGY REPORT ---
CHEST RADIOGRAPH Indication: sob Technique: Single frontal view of the chest was obtained COMPARISON: CT CT CHEST on DOS: 01/16/25, DI CHEST,SINGLE VIEW on DOS: 01/16/25, CT CT CHEST on DOS: 12/30/24, DI CHEST,SINGLE VIEW on DOS: 12/30/24, DI CHEST,SINGLE VIEW on DOS: 08/02/24 FINDINGS: Lines and Tubes: None Lungs: Increased interstitial prominence. This may represent pulmonary vascular congestion and/or viral pneumonia. Pleura: Small bilateral pleural effusions. No pneumothorax. Cardiomediastinal contours: Cardiomegaly. Bones: Unremarkable IMPRESSION: Cardiomegaly with pulmonary vascular congestion and small bilateral pleural effusions.
[2025-03-26 15:07] LABS: MEAN PLATELET VOLUME 7.4 FL (7.4-10.4); RED CELL DISTRIBUTION WIDTH 17.8 % (11.5-14.5)
[2025-03-26 15:16] LABS: APTT 23 SECONDS (22-32); INR 1.1 INR
[2025-03-26 15:23] LABS: CREATININE 2.25 MG/DL (0.60-1.10); TOTAL CARBON DIOXIDE 26.0 MMOL/L (24-32); eCRCL 26 ML/MIN; eGFR 28 ML/MIN
[2025-03-26 18:09] LABS: PRO BRAIN NATRIURETIC PEPTIDE > 30000 PG/ML (0-450)
[2025-03-26] MEDS ORDERED: ipratropium/albuterol 3ml nebule NEB PRN (19:40)
[2025-03-26] MEDS ORDERED: magnesium sulf-water 2g/50mL 50 ML IV PRN (19:40)
[2025-03-26] MEDS ORDERED: magnesium Cl slow-release 64mg tablet PO PRN (19:40)
[2025-03-26] MEDS ORDERED: albuterol 2.5 MG/3 ML nebule NEB PRN (19:40)
[2025-03-26] MEDS ORDERED: potassium Cl 40MEQ/1/2NS 520ml 520 ML IV PRN (19:40)
[2025-03-26] MEDS ORDERED: magnesium sulf-water 4G/100mL 100 ML IV PRN (19:40)
[2025-03-26] MEDS ORDERED: potassium Cl 20 mEq SR tablet PO PRN ×2 (19:40)
--- NOTE | 2025-03-26 19:51 | HISTORY AND PHYSICAL-Residence ---
History & Physical Providers to CC Resident Creating Document: SHERON FLOWERS, RES ~ History of Present Illness Primary Medical Doctor: DR. Farrell. ([facility]). Solar Energy Systems Engineer: Dr. Ambika Fajardo Reason for Admit\Complaint: Shortness of breath History of Present Illness This is a 89-year-old male with a history of heavy tobacco use, persistent atrial fibrillation s/p Watchman procedure not on anticoagulation, CKD stage 3, COPD on 3 L home oxygen, type 2 diabetes, hypertension, prior prostatectomy, right MAX s/p prosthetic leg and sleep apnea on CPAP was referred to the ER by his carpenter foreman during a visit in the outpatient clinic. Per patient, he has been feeling short of breath since the last 2-3 weeks and he is currently not taking any diuretics at home. He endorses orthopnea, PND and swelling in legs. His current medications include prednisone 20 mg daily, iron supplements, Januvia 25 mg, losartan 50 mg, simvastatin 40 mg and carvedilol [address] De Jesus is his squeegee operator in the outpatient. He denies any cough, sputum production, fever, skin infections but has a abdominal tenderness on palpation of the right upper quadrant. Allergies: Coded Allergies: Penicillins (Verified Allergy, Unknown, 01/16/25) TOUNGE EDEMA Home Medications Home Medications Active Thera Tablet (Multivitamin with Folic Acid) 400 Mcg Tablet 1 Each PO DAILY 30 Days Budesonide-Formoterol 80-4.5 (Budesonide/Formoterol Fumarate) 80 Mcg-4.5 Mcg/Actuation Hfa.aer.ad 2 Puffs PO Q12H 30 Days Carvedilol 3.125 Mg Tablet 3.125 Mg PO BID 30 Days Reported Docusate Sodium 100 Mg Caps 1 Cap PO DAILY 30 Days AM Iron (Ferrous Sulfate) 325 Mg (65 Mg Iron) Tablet 1 Tab PO DAILY 30 Days AM Probiotic (Lactobacillus Acidophilus) 10 Billion Cell Capsule 1 Cap PO DAILY 10 Days AM Nexium (Esomeprazole Magnesium) 40 Mg Capsule. 1 Cap PO BID 30 Days Simvastatin 40 Mg Tablet 1 Tab PO HS 30 Days Glipizide 10 Mg Tablet 1 Tab PO DAILY 30 Days @1800 Januvia* (Sitagliptin Phosphate*) 50 Mg Tablet 1 Tab PO DAILY 30 Days AM Vitamin C (Ascorbic Acid) 500 Mg Tablet 1 Tab PO BID Past Medical History Past Medical History DM type 2 AFib status post Watchman procedure COPD HTN Angioectasias Prostate cancer status post prostatectomy Sleep apnea on CPAP Past Surgical History Surgical History Comment Prostatectomy Right lower extremity AKA Cyst removal of the neck Family History Family History: FH: diabetes mellitus MOTHER, , Age: 96, Cause: Old age Past Social History Social History Comment Social History Comment Former smoker: Smoked for 35 years quit in 1989-smoked two packs per day Two shots of vodka every day until 1-1/[address] 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 Fajardo (carpenter foreman) Smoking: Quit greater than 1 year Alcohol Use: Sober Drug Use: None Lives with: Spouse Lives In: Home Occupation: retired ROS ROS Constitutional: No fever, chills, dizziness, weakness, weight gain or loss Eyes: No pain, erythema, discharge, blurring of vision ENT: No sore throat, epistaxis, tinnitus Cardiovascular: No palpitations, syncope, lower extremity edema, paroxysmal nocturnal dyspnea Respiratory: Difficulty breathing, accessory muscle use, orthopnea, swelling in the legs. No hemoptysis Gastrointestinal: Right upper quadrant pain and tenderness. Normal appetite. No nausea, vomiting, diarrhea, constipation, hematemesis, bloating, melena or fresh blood Genitourinary: No frequency, urgency, nocturia, hematuria or dysuria Musculoskeletal: No arthralgias or myalgias Integumentary: No change in skin, hair, nails. No swelling, bruising, abrasions Neurologic: No headache, neck pain, numbness or tingling of the extremities, weakness Psychiatric: No delusions, depression, loss of interest in normal activity or change in sleep pattern, hallucinations, suicidal ideations Endocrine: No fatigue, weakness, polydipsia, polyuria, change in appetite, heat or cold intolerance, sweating, dry skin Hematological: No bleeding, petechiae, bruising Allergies: No asthma or urticaria Exam Vitals: Vital Signs Date Time Temp Pulse Resp B/P (MAP) Pulse Ox O2 Delivery O2 Flow Rate FiO2 03/26/25 17:46 65 16 136/65 (88) 100 5.0 03/26/25 14:23 97.7 General: General: Moderately built elderly male, Alert, awake, oriented, in moderate acute respiratory distress HEENT: PERRLA, no icterus, pallor, lymphadenopathy, carotid bruit Respiratory system: decreased breath sounds bilaterally, bilateral wheezing, mild crackles on auscultation CVS: Irregularly irregular heart rate, S1-S2 heard, no murmurs/rubs/gallop GI: Severe tenderness to palpation of the right upper quadrant. Soft, no organomegaly, no guarding/rigidity, bowel sounds present Neuro: No focal neurological deficits present. Cranial examination is normal, motor and sensory nerve examination is normal Extremities: Right lower extremity AKA, 2+ pitting edema in the left lower extremity Musculoskeletal: Right lower extremity MAX, no deformities Skin: Warm and dry Psych: Normal mood and affect Diagnostic Data Last Recorded Lab Results: 03/26/25 1441 03/26/25 1441 Diagnostic Data: Laboratory Tests Test 03/26/25 14:41 Prothrombin Time 11.3 SECONDS (9.0-12.0) INR International Normalized Ratio 1.1 INR Activated Partial Thromboplast Time 23 SECONDS (22-32) Coagulation Comments Advance Care Planning Advanced Care plannin - 30 Minutes (I spent a total of 17 minutes on reviewing various resuscitative measures/ ACP with the patient at the time of admission. The patient has decided on a full code status) Additional Plan Acute hypoxemic respiratory failure, multifactorial secondary to pneumonia, CHF, COPD and malignancy. Acute chronic CHF exacerbation with mildly reduced ejection fraction Acute on chronic COPD exacerbation Community-acquired pneumonia, covering Gram-positive g negatives and atypicals Bilateral pleural effusions and bilateral consolidation Suspected malignancy Chest x-ray shows cardiomegaly with congestion and small bilateral pleural effusions. Clinical examination consistent with CHF exacerbation with orthopnea, pedal edema, accessory muscle use, tachypnea and decreased breath sounds, patient also has COPD exacerbation with bilateral wheezing. Patient received one dose of Lasix 40 mg in the ER. Continue Lasix IV 40 mg b.i.d., strict I&O. Patient received one dose of Solu-Medrol 125 mg followed by 40 mg b.i.d. duo nebs q.4 PRN and albuterol q.2h PRN. Lactic acid, procalcitonin pending. ESR is elevated at 70 and CRP is elevated at 4.5. Previous CTs done three months ago show extensive background of calcific granulomas with diffuse distribution suggestive of atypical infection/granulomatous disease and spiculated nodule. CT now shows 1. Moderate bilateral pleural effusions with adjacent atelectasis and moderate bilateral lower lobe consolidation with scattered parenchymal calcifications. 2. Innumerable bilateral pulmonary nodules measuring up to approximately 4 mm in diameter. 3. Cardiomegaly and trace pericardial effusion. 4. Moderate dilatation of the right main pulmonary artery, measuring up to 3.8 cm. 5. Mediastinal lymphadenopathy. 6. Heterogeneously attenuating right thyroid lobe enlargement measures 5.2 x 2.9 cm. Nonemergent dedicated thyroid ultrasound recommended for further evaluation. Started on ceftriaxone and azithromycin. Consult ICU team for possible thoracentesis and fluid analysis of [place] elevated at > [address]. Echo in December showed EF of 45% RVSP of 50 mmHg. Repeat echo ordered. Follow up Reactive leukocytosis secondary to steroids Elevated ALP Right upper quadrant tenderness Follow up with the abdominal ultrasound to rule out liver/biliary pathologies abdomen Obstructive sleep apnea on CPAP Suspected pulmonary hypertension RVSP is elevated at 50 mmHg on previous echo. Continue CPAP at night. Chronic Kidney Disease (CKD stage III) Likely multifactorial: possible volume depletion, cardiorenal syndrome, medication effects (diuretics, МАРИЯ inhibitor/ARB), and underlying chronic disease. Hold nephrotoxic medications (losartan) until renal function stabilizes. Monitor renal function (BUN, creatinine, electrolytes) daily. Assess and optimize volume status; avoid both dehydration and fluid overload. Monitor urine output closely. Review all medications for renal dosing and adjust as needed. Hyperkalemia (Potassium 5.5) Likely related to CKD, medications (losartan), and possibly acidosis. Place on a low-potassium diet. Hold or adjust medications that increase potassium (losartan). Monitor potassium levels closely. Started [facility] Anemia of chronic disease secondary to CKD, malignancy. Plan: Check iron studies. Continue iron supplements. Consider transfusion if symptomatic or if hemoglobin drops below 7.0. Evaluate for erythropoiesis-stimulating agent if anemia is chronic and iron stores are adequate. Chronic Hyponatremia (Sodium 132) Likely due to volume overload. Plan: Monitor sodium daily. Avoid rapid correction of sodium ( 6-8mmol/L in 24 hours). Poorly controlled Diabetes Mellitus Type 2 with Hyperglycemia likely secondary to steroids Glucose is high on admission. Patient takes prednisone 20 mg as home medication. Plan: Monitor blood glucose closely. Follow up with the A1c Started on long-acting Lantus insulin 20 units daily and the high dose insulin protocol Multiple Pulmonary Nodules on previous CT Right upper lobe spiculated nodule, right thyroid nodule, and weight loss raise concern for malignancy on previous CT Plan: Oncology follow up outpatient. Follow up with pleural fluid studies for malignant effusion versus parapneumonic effusion. Persistent Atrial Fibrillation without RVR On Watchman device, carvedilol, and other cardiac medications. Plan: Continue cardiac monitoring. Moderate protein calorie malnutrition Ensure enlive t.i.d. Code Status: Full code DVT Prophylaxis: Heparin subQ Analgesia/Sedation: Tylenol Lines/Tubes: PIV Gi Prophylaxis: Protonix Nutrition: Carb controlled diet in the view of poorly controlled diabetes, low potassium diet PT: Yes Prognosis: Guarded Disposition: Admit to PCU with telemetry monitoring Sheron Ramachandran MD Internal Medicine Resident PGY-2 I saw and discussed the case with the resident team Agree with assessment and plan Date of Service: Mar 26, 2025 Billing Provider: SEVERIANO DIA MD,SHERON RAMACHANDRAN, RES Mar 26, 2025 19:51 SEVERIANO DIA MD Mar 27, 2025 11:53
[2025-03-26] MEDS: docusate sod 100mg capsule PO SCH (20:00)
[2025-03-26] MEDS: K and/or MAG REPLACEMENT MC SCH (20:00)
[2025-03-26] MEDS ORDERED: furosemide 10 MG/1 ML 10ml inj IV SCH (20:15)
[2025-03-26 20:41] LABS: LEUKOCYTE ESTERASE ,URINE NEGATIVE (Neg); NITRITES, URINE NEGATIVE (Neg); OCCULT BLOOD,URINE SMALL (Neg)
[2025-03-26 20:42] LABS: UA COLLECTION TYPE NON-SPECIFIED
[2025-03-26 20:48] LABS: ABG BASE EXCESS -0.4 mmol/L (-2.0-3.0); ABG HCO3 23.2 mmol/L (21.0-28.0); ABG OXYGEN SATURATION 98.2 % (94.0-98.0); ABG PCO2 (T) 33.6 mmHg (35.0-48.0); ABG PH (T) 7.457 (7.350-7.450); ABG PO2 (T) 112.0 mmHg (83.0-108.0); FCOHb 0.1 % (0.5-1.5); FHHb 1.8 % (0.0-5.0); FIO2 32.0 mmHg/%; FLOW 3 L/min; FMetHb 0.3 % (0.0-1.5); FO2Hb 97.8 % (94.0-98.0); MODE NASAL CANNULA; PATIENT TEMPERATURE 37.0; TOTAL HEMOGLOBIN 8.5 G/dl (13.5-17.5)
[2025-03-26 20:51] LABS: MUCUS STRANDS NONE SEEN /LPF (Neg); SQUAMOUS EPITHELIAL CELL,UR NONE SEEN /LPF (FEW)
[2025-03-26] MEDS ORDERED: dextrose 50%-water 50ml dispensing syringe IV PRN (21:00)
[2025-03-26] MEDS ORDERED: DEXTROSE 15 GM of carb/4 tabs (each vial/BOTTLE has 4 tablets) PO PRN (21:00)
[2025-03-26] MEDS ORDERED: glucagon, human recombinant 1mg kit SUBCUT PRN (21:00)
[2025-03-26] MEDS: heparin, porcine 5000 units/ml vial SQ SCH (21:08)
[2025-03-26] MEDS: insulin glargine (Lantus) pen - multi-dose SQ SCH (22:27)
[2025-03-26] MEDS: insulin regular, human 10 units/0.1 ml syringe SQ ONE (23:36)
[2025-03-26] MEDS: SODIUM ZIRCONIUM CYCLOSILICATE 10 GM POWD.PACK PO SCH (23:38)
[2025-03-27] VITALS (12 sets, daily range): BP systolic 100–143; BP diastolic 46–57; PULSE 50–83; RESP 16–23; TEMP 97.1–97.9; O2SAT 93–100
[2025-03-27] MEDS: INSULIN LISPRO 100 UNIT/ML INSULN.PEN MULTI-DOSE SQ SCH (00:07)
--- NOTE | 2025-03-27 02:28 | RADIOLOGY REPORT ---
Procedure: CT CT CHEST Reason for study/Clinical History: sob Comparison Study: DI CHEST,SINGLE VIEW on DOS: 03/26/25, CT CT CHEST on DOS: 01/16/25, DI CHEST,SINGLE VIEW on DOS: 01/16/25, CT CT CHEST on DOS: 12/30/24, DI CHEST,SINGLE VIEW on DOS: 12/30/24 TECHNIQUE: Multidetector CT of the chest was performed from the lung apices to the upper abdomen without the use of intravenous contract. Axial, coronal and sagittal multiplanar reformats were performed. Radiation Dose Information: CT Dose: CTDI volume is 18.68 mGy. Dose-length product is 792.7 mGy*cm The dose indicators for CT are the volume Computed Tomography (CT) Dose Index (CTDIvol) and the Dose Length Product (DLP), and are measured in units of mGy and mGy-cm, respectively. These indicators are not patient dose, but values generated from the CT scanner acquisition factors. The report includes radiation exposure data for exposures received during this examination. FINDINGS: Lower neck: Heterogeneously attenuating right thyroid lobe enlargement measures 5.2 x 2.9 cm. Lungs: Moderate bilateral pleural effusions with adjacent atelectasis and moderate bilateral lower lobe consolidation with scattered parenchymal calcifications. Innumerable bilateral pulmonary nodules measuring up to a proximally 4 mm in diameter. Heart/Vascular Structures: Cardiomegaly and trace pericardial effusion. Moderate dilatation of the right main pulmonary artery, measuring up to 3.8 cm. Lymph Nodes: Moderately enlarged mediastinal lymph nodes, for example, 1.2 cm right paratracheal node. Pleura: No pleural effusion or significant pneumothorax. Musculoskeletal: No acute osseous abnormality. Soft tissues: Normal. Upper abdomen: Limited portions of the upper abdomen are unremarkable. IMPRESSION: 1. Moderate bilateral pleural effusions with adjacent atelectasis and moderate bilateral lower lobe consolidation with scattered parenchymal calcifications. 2. Innumerable bilateral pulmonary nodules measuring up to approximately 4 mm in diameter. 3. Cardiomegaly and trace pericardial effusion. 4. Moderate dilatation of the right main pulmonary artery, measuring up to 3.8 cm. 5. Mediastinal lymphadenopathy. 6. Heterogeneously attenuating right thyroid lobe enlargement measures 5.2 x 2.9 cm. Nonemergent dedicated thyroid ultrasound recommended for further evaluation. Radiation optimization: All CT scans at this facility use at least one of these dose optimization techniques: automated exposure control mA and/or kV adjustment per patient size (includes targeted exams where dose is matched to clinical indication) or iterative reconstruction.
[2025-03-27] MEDS ORDERED: PRED10TA (03:12)
[2025-03-27] MEDS ORDERED: ALBU10.7 (03:12)
[2025-03-27] MEDS ORDERED: BUDE10.22 (03:12)
[2025-03-27] MEDS ORDERED: [UNRECOGNIZED DRUG - CODE] PO (03:13)
[2025-03-27 06:20] LABS: MEAN PLATELET VOLUME 7.5 FL (7.4-10.4); RED CELL DISTRIBUTION WIDTH 17.8 % (11.5-14.5)
[2025-03-27 06:21] LABS: CREATININE 2.12 MG/DL (0.60-1.10); TOTAL CARBON DIOXIDE 25.9 MMOL/L (24-32); eCRCL 24 ML/MIN; eGFR 30 ML/MIN
[2025-03-27] MEDS: azithromycin/NS 500mg/250ml 250 ML IV SCH (08:00)
[2025-03-27] MEDS: CefTRIAXone/D5W-Rocephin 1gm 50 ML IV SCH (08:00)
[2025-03-27] MEDS: methylPREDNISolone sod succ/PF 40mg inj. IV SCH (08:24)
--- NOTE | 2025-03-27 08:25 | RADIOLOGY REPORT ---
INDICATION: Right upper quadrant pain and tenderness TECHNIQUE: Multiple real-time sonographic images of the abdomen were obtained. COMPARISON: CT CT ABDOMEN PELVIS on DOS: 08/26/23 FINDINGS: The liver is homogenous in echogenicity. The liver measures 12.8 cm. No intrahepatic biliary ductal dilatation is noted. The gallbladder wall measures 0.3 cm and is unremarkable. No gallstones or sludge is seen. The common duct measures 0.3 cm and is unremarkable. No pericholecystic fluid is noted. The right kidney measures 11.3 cm. No hydronephrosis. The pancreas is not well visualized due to obscuration from bowel gas. The visualized portions of the IVC and aorta are grossly unremarkable. No ascites. No pleural effusion. IMPRESSION: 1. No acute process in the right upper quadrant.
[2025-03-27 08:37] LABS: OSMOLALITY 299 MOSM/K (280-300)
--- NOTE | 2025-03-27 09:10 | RADIOLOGY REPORT ---
PROCEDURE: ULTRASOUND GUIDED THORACENTESIS USING TEMPORARY CATHETER HISTORY: 89 Male with right requiring thoracentesis. DOCUMENTATION: Informed consent was obtained and a procedural time out was performed. TECHNIQUE: Ultrasound was used to locate the right pleural fluid collection with an image archived in the PACS. Small right effusion FINDINGS: Small right effusion IMPRESSION: Small right effusion, too small for thoracentesis
--- NOTE | 2025-03-27 09:53 | PROCEDURE NOTE CC ---
Procedure Note CC Providers to CC ~ Procedure Name: Thoracentesis Description: Indication: Pleural Effusion Consent: Pt Time-out: Done Side: Right Technique: US guided Anesthesia: Local Fluid: 700ml clear yellow. Sample sent to lab Complication: None EBL: 0ml Sepsis Screening Reassessment Date: Mar 27, 2025 EARNEST NOVA MD Mar 27, 2025 09:52
--- NOTE | 2025-03-27 10:29 | RADIOLOGY REPORT ---
PROCEDURE: ULTRASOUND GUIDED THORACENTESIS USING TEMPORARY CATHETER HISTORY: 89 Male with sob requiring thoracentesis. DOCUMENTATION: Informed consent was obtained and a procedural time out was performed. TECHNIQUE: Ultrasound was used to locate the right pleural fluid collection with an image archived in the PACS. The skin over the right posterior hemithorax was sterilely prepped, draped, and infiltrated with 1% lidocaine. Under real time ultrasound guidance, the right pleural space was accessed with a 19-gauge Yueh needle and connected to Vacutainers. The Yueh catheter was advanced, the needle was removed and the temporary catheter was advanced and connected to the Vacutainer. Approximately 750 mL fluid was removed. The temporary catheter was removed and sterile dressings were applied. FINDINGS: Ultrasound demonstrates a right pleural effusion. Imaging confirms the needle tip within the fluid. IMPRESSION: SUCCESSFUL ULTRASOUND GUIDED THORACENTESIS. 750 cc removed.
[2025-03-27 11:44] LABS: BFSOURCE RIGHT PLEURAL FLD; PLEURAL FLUID PH 7.348 (7.63-7.65)
[2025-03-27 11:44] LABS: OSMOLALITY UA 477 MOSM/K (50-1400)
[2025-03-27 12:07] LABS: LYMPHOCYTES,BODY FLUID 54 %; MONOCYTES,BODY FLUID 5 %; NEUTROPHILS,BODY FLUID 41 %
[2025-03-27 12:10] LABS: BF RBC COUNT 124 /CU MM; BF WBC COUNT 72 /CU MM (0-1000); BFAPPEAR CLEAR; BFCOLOR STRAW; BFSOURCE RIGHT PLEURAL FLD; BFVOLUME 40 ML
[2025-03-27 12:30] LABS: GLUCOSE,BODY FLUID 326 MG/DL; LDH,BODY FLUID 44 U/L
[2025-03-27 12:56] LABS: TOTAL PROTEIN,BODY FLUID < 2.0 G/DL
--- NOTE | 2025-03-27 14:00 | PROGRESS NOTE- Residence ---
Progress Note - Resident Providers to CC Resident Creating Document: JOSELIN RODRIGUEZ CC: BRENDON LOPEZ MD ~ Central Line/PICC still needed: N\A Mcfadden-Non Protocol Mcfadden Indications Met/Not Met: F/C Indications Not Met Antibiotic Timeout Antibiotic Ordered?: Yes MRSA Education MRSA Education Provided to pt: N/A Subjective Patient was seen and evaluated today at bedside.No acute events overnight. Patient reports that his shortness of breath has significantly improved after undergoing thoracentesis. Thoracentesis was done today and 750ml of fluid was taken out from right hemithorax. He reports no pain at the thoracentesis site. He denies any chest pain,dizziness, palpitations, fever, cough or hemoptysis. Objective Vital Signs Date Time Temp Pulse Resp B/P (MAP) Pulse Ox O2 Delivery O2 Flow Rate FiO2 03/27/25 13:05 77 22 129/51 (77) 100 Nasal Cannula 2.0 03/27/25 10:00 97.1 03/27/25 08:00 28 Result Diagram: 03/27/2552203/27/25522 General: Moderately built elderly male, Alert, awake, oriented, in moderate acute respiratory distress HEENT: PERRLA, no icterus, pallor, lymphadenopathy, carotid bruit Respiratory system: decreased breath sounds bilaterally, bilateral wheezing, mild crackles on auscultation CVS: Irregularly irregular heart rate, S1-S2 heard, no murmurs/rubs/gallop GI: Soft, no organomegaly, no guarding/rigidity, bowel sounds present Neuro: No focal neurological deficits present. Cranial examination is normal, motor and sensory nerve examination is normal Extremities: Right lower extremity BKA, trace pitting edema in the left lower extremity Musculoskeletal: Right lower extremity AKA, no deformities Skin: Warm and dry Psych: Normal mood and affect Coagulation Studies Laboratory Tests Test 03/26/25 14:41 03/27/25 12:25 Prothrombin Time 11.3 SECONDS (9.0-12.0) INR International Normalized Ratio 1.1 INR Activated Partial Thromboplast Time 23 SECONDS (22-32) Coagulation Comments D-Dimer 7.91 MG/L FEU (0-0.50) H D-Dimer Comment Assessment Assessment This is a 89-year-old male with a history of HFrEF, COPD on 3 L home oxygen, persistent atrial fibrillation s/p Watchman procedure not on anticoagulation, CKD stage 3, type 2 diabetes, hypertension, prior prostatectomy, right AKA s/p prosthetic leg and sleep apnea on CPAP was referred to the ER by his out and out cigar maker hand during a visit in the outpatient clinic for the ongoing worsening shortness of breath since last three to four weeks. Plan Plan Bilateral pleural effusions, likely transudative 2/2 CHF Community-acquired pneumonia, covering Gram-positive g negatives and atypicals Multiple Pulmonary Nodules on previous CT, Suspected lung malignancy Thoracentesis done today and 750cc of fluid taken out from right hemithorax, with improvement of shortness of breath Pending thoracentesis results Lactic acid initially elevated, now normalized Procalcitonin is normal White count normalized ESR is elevated at 70 and CRP is elevated at 4.5. Continue cetriaxone and azithromycin Patient will likely benefit from further outpatient follow up on lung mass Acute on chronic CHF exacerbation with reduced ejection fraction Cor pulmonale Persistent Atrial Fibrillation, rate controlled Echo shows EF of 40%. RVSP is estimated at 58 mmHG. Pro BNP [place] elevated at > [address]. Echo in December showed EF of 45% RVSP of 50 mmHg. Continuing Lasix IV 40 mg b.i.d., strict I&O Continue carvedilol Will optimize GDMT as tolerated including lisinopril, Jardiance and spironolactone COPD exacerbation Continue DuoNebs q.4 scheduled and q.2h p.r.n. Continue Solu-Medrol 40 mg IV b.i.d. Rest as above Elevated ALP Right upper quadrant tenderness: resolved US Abdomen No acute process in the right upper quadrant. Obstructive sleep apnea on CPAP Suspected pulmonary hypertension RVSP is elevated at 50 mmHg on previous echo Continue CPAP at night. Rest as above Chronic Kidney Disease (CKD stage III) Creatinine is at baseline Will continue monitoring Hyperkalemia (Potassium 5.5), resolved Repeat potassium is 4.8 Monitor telemetry Likely related to CKD, medications (losartan), and possibly acidosis. Placed on a low-potassium diet. Monitor potassium levels closely. Started on [place] Anemia of chronic disease secondary to CKD, malignancy. Continue iron supplements. Consider transfusion if symptomatic or if hemoglobin drops below 7.0. Evaluate for erythropoiesis-stimulating agent if anemia is chronic and iron stores are adequate. Chronic Hyponatremia (Sodium 132) Likely due to volume overload.: Monitor sodium daily. Avoid rapid correction of sodium ( 6-8mmol/L in 24 hours). Continue monitoring Pending lytes Diabetes Mellitus Type 2 with Hyperglycemia likely secondary to steroids HbA1c is 6.9 Monitor blood glucose closely. Goal 140-180 Increased Lantus insulin to 25 units daily Start lispro 3 units meals Continue high dose insulin protocol Moderate protein calorie malnutrition Ensure enlive t.i.d. Code Status: Full code DVT Prophylaxis: Heparin subQ Analgesia/Sedation: Tylenol Lines/Tubes: PIV Gi Prophylaxis: Protonix Nutrition: Carb controlled diet in the view of poorly controlled diabetes, low potassium diet PT: Yes Prognosis: Guarded Disposition: Continue care in PCU with telemetry monitoring. Continue medical management Patient has been discussed in detail with senior resident (PGY-3), as well as attending physician, Dr Irina Smith MD Internal Medicine Resident PGY-2 Date of Service: Mar 27, 2025 Billing Provider: BRENDON LOPEZ MD, LEONARDO LUIS Mar 27, 2025 14:00
[2025-03-27 15:20] LABS: CREATININE 2.35 MG/DL (0.60-1.10); LACTATE DEHYDROGENASE 118 U/L (85-227); TOTAL CARBON DIOXIDE 24.4 MMOL/L (24-32); eCRCL 22 ML/MIN; eGFR 26 ML/MIN
--- NOTE | 2025-03-27 18:03 | CARDIOLOGY REPORT ---
APPROVED REPORT EXAM: Limited 2D, Doppler, and color-flow Echocardiogram. Patient Location: [facility] Blood Pressure: 143/57 mmHg Heart Rate: 70-75 bpm Rhythm: Atrial Fibrillation Indications SOB CHF AFIB Hypertension Diabetes Hx Watchman device Hx ablation Psychiatric Arnp is Ambika Fajardo MD Previous echo 01/16/25 [facility] 45-50% EF ; RVSP is 50 ; m-mod MR tr TR 2D Dimensions IVC 24.97 mm Aortic Valve AoV Peak Felix. 150.7 cm/s AO Peak GR. 9.1 mmHg Mitral Valve MV Peak Gr. 9 mmHg MV PHT 68 ms MVA (PHT) 3.24 cm2 MV VMax 148.7 cm/s Tricuspid Valve TR P. Velocity 330 cm/s RAP ESTIMATE 15 mmHg TR Peak Gr. 43 mmHg RVSP 58 mmHg LEFT VENTRICLE LV appears normal in size and thickness. Overall systolic function appears moderately reduced with abnormal septal motion. LVEF is 40%. RIGHT VENTRICLE RV appears moderately dilated with reduced contractility. RVSP is estimated at 58 mmHG. AORTIC VALVE Trileaflet AV appears sclerotic without stenosis. No insufficiency by color and spectral flow Doppler. MITRAL VALVE MV is thickened with mild annular calcification and no stenosis. Mild mitral regurgitation. TRICUSPID VALVE The tricuspid valve is normal in structure. Trace tricuspid regurgitation. GREAT VESSELS IVC is dilated and collapses less than 50% with inspiration. PERICARDIUM There is no pericardial effusion. Pleural effusion Other Information Study Quality: Adequate Conclusion LV appears normal in size and thickness. Overall systolic function appears moderately reduced with abnormal septal motion. LVEF is 40%. RV appears moderately dilated with reduced contractility. RVSP is estimated at 58 mmHG. Trileaflet AV appears sclerotic without stenosis. No insufficiency by color and spectral flow Doppler. MV is thickened with mild annular calcification and no stenosis. Mild mitral regurgitation. The tricuspid valve is normal in structure. Trace tricuspid regurgitation. There is no pericardial effusion.
[2025-03-27] MEDS: insulin glargine (Lantus) pen - multi-dose SQ SCH (20:55)
[2025-03-28] VITALS (17 sets, daily range): BP systolic 113–152; BP diastolic 47–76; PULSE 55–89; RESP 16–20; TEMP 97.3–98.1; O2SAT 95–100
[2025-03-28 05:51] LABS: MEAN PLATELET VOLUME 7.3 FL (7.4-10.4); RED CELL DISTRIBUTION WIDTH 18.2 % (11.5-14.5)
[2025-03-28 06:21] LABS: CREATININE 2.53 MG/DL (0.60-1.10); TOTAL CARBON DIOXIDE 27.2 MMOL/L (24-32); eCRCL 20 ML/MIN; eGFR 24 ML/MIN
[2025-03-28] MEDS: docusate sod 100mg capsule PO SCH (08:12)
[2025-03-28] MEDS: multivitamins, therapeutics tablet PO SCH (08:15)
[2025-03-28] MEDS: lactobacillus rhamnosus 10,000 MMU CELLS/CAPSULE PO SCH (08:15)
[2025-03-28] MEDS: EMPAGLIFLOZIN 10 MG TABLET PO SCH (08:15)
[2025-03-28] MEDS: INSULIN LISPRO 100 UNIT/ML INSULN.PEN MULTI-DOSE SQ SCH (09:00)
--- NOTE | 2025-03-28 10:57 | RADIOLOGY REPORT ---
CLINICAL INFORMATION: Elevated D-dimer. Shortness of breath. TECHNIQUE: 45 mCi of aerosolized Tc99m DTPA was used for the ventilation portion of the exam. Posterior ventilation imaging was obtained. 5 mCi of technetium 99m MAA was used for the perfusion portion of the exam. Imaging was obtained in multiple planes of projection. COMPARISON: Radiographs dated 03/26/2025. CT chest dated 03/27/2025. NM NM LUNGS on DOS: 01/17/25, NM NM LUNGS on DOS: 12/30/24 FINDINGS: Mildly diminished perfusion in the lung bases, to a lesser extent in the diminished activity seen in the lung bases on ventilation images. No mismatched perfusion defect is seen. IMPRESSION: Low probability of pulmonary embolism.
[2025-03-28] MEDS: ipratropium/albuterol 3ml nebule NEB SCH (11:42)
--- NOTE | 2025-03-28 11:43 | RADIOLOGY REPORT ---
CLINICAL HISTORY: SOB TECHNIQUE: Single view of the chest was obtained. COMPARISON: CT CT CHEST on DOS: 03/27/25, DI CHEST,SINGLE VIEW on DOS: 03/26/25, CT CT CHEST on DOS: 01/16/25, DI CHEST,SINGLE VIEW on DOS: 01/16/25, CT CT CHEST on DOS: 12/30/24 FINDINGS: The heart size is mildly enlarged with unchanged pulmonary vascular congestion. There are improving right and unchanged left bibasilar opacities, compatible with pleural effusions and atelectasis. IMPRESSION: Unchanged pulmonary vascular congestion. Improving right and unchanged left bibasilar opacities, compatible with pleural effusions and atelectasis. A superimposed process is not excluded.
--- NOTE | 2025-03-28 13:11 | PROGRESS NOTE- Residence ---
Progress Note - Resident Providers to CC Resident Creating Document: JUSTUS ANDREWTIK, RES ~ Antibiotic Timeout Antibiotic Ordered?: Yes Subjective Patient seen and examined at the bedside today. The patient reports that his breathing has improved when compared to prior to his admission. Denied any other acute overnight events. When the about any hematemesis or bleeding per rectum or dark colored stools with the patient reported that he has noticed intermittent bright red blood in his stools. Records showed that the patient was evaluated for suspected GI bleed last admission and had a EGD done which showed gastric angioectasias with previous clippings. At discharge the patient was recommended to follow up with the geophysical support specialist at the office with the patient stated that he has not seen a geophysical support specialist after discharge. Objective Vital Signs Date Time Temp Pulse Resp B/P (MAP) Pulse Ox O2 Delivery O2 Flow Rate FiO2 03/28/25 11:57 89 16 Room Air 0.0 21 03/28/25 11:46 97.6 128/52 03/28/25 11:45 95 Result Diagram: 03/28/25 0450 03/28/25 0450 General: Moderately built elderly male, Alert, awake, oriented, in moderate acute respiratory distress HEENT: PERRLA, no icterus, pallor, lymphadenopathy, carotid bruit Respiratory system: Bilateral decreased breath sounds, bibasilar crackles present. Mild expiratory wheeze present. CVS: Irregularly irregular heart rate, S1-S2 heard, no murmurs/rubs/gallop GI: Soft, no organomegaly, no guarding/rigidity, bowel sounds present Neuro: No focal neurological deficits present. Cranial examination is normal, motor and sensory nerve examination is normal Extremities: Right lower extremity AKA, 1+ edema in left lower extremity. Musculoskeletal: Right lower extremity AKA, no other deformities. Skin: Warm and dry Psych: Normal mood and affect Coagulation Studies Laboratory Tests Test 03/26/25 14:41 03/27/25 12:25 Prothrombin Time 11.3 SECONDS (9.0-12.0) INR International Normalized Ratio 1.1 INR Activated Partial Thromboplast Time 23 SECONDS (22-32) Coagulation Comments D-Dimer 7.91 MG/L FEU (0-0.50) H D-Dimer Comment Assessment Assessment 89-year-old male with past medical history of congestive heart failure, COPD, chronic hypoxemic respiratory failure on 2-3 L oxygen at home intermittently, AFib status post Watchman procedure, anemia, GI bleed is admitted in the hospital for evaluation and management of acute on chronic hypoxemic respiratory failure secondary to acute CHF exacerbation with reduced ejection fraction, bilateral pleural effusion and COPD exacerbation. Plan Plan Acute exacerbation of congestive heart failure with reduced ejection fraction Bilateral pleural effusion-transudative Repeat echocardiography from this admission shows the patient's left ventricular ejection fraction of 40% and right ventricular systolic pressure 58 mmHg. The patient has significantly elevated proBNP [place] than [address]. Chest x-ray shows increased pulmonary vascular congestion with a bilateral pleural effusions. The patient underwent thoracentesis of the right side yesterday and 750 cc of fluid was drained. Lights criteria shows serum pleural fluid LDH/ serum LDH of 0.3, pleural protein/serum protein 0.3. The pleural fluid is transudative secondary to underlying congestive heart failure. Started the patient on IV Lasix 40 mg b.i.d.. Currently changed once daily. Strict input and output monitoring. Fluid restriction to 1.5 L recommended. Restarted GDM T on Jardiance 10 mg p.o. daily and Coreg 3.125 mg b.i.d.. In view of the patient's CKD lisinopril and spironolactone currently on hold. The patient's manager automotive Dr. 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 Per Dr. Fajardo patient can follow up at the clinic post discharge. Acute on chronic hypoxemic respiratory failure Community-acquired pneumonia covering Gram-positive and Gram-negative bacteria COPD exacerbation Multiple pulmonary nodules-suspected lung malignancy The patient's oxygen requirement has a improved. Today's on 1 L oxygen via nasal cannula. His wheezing has improved significantly. Continue IV ceftriaxone and azithromycin. Continue DuoNeb nebulizations q.4 hours scheduled and q.2 hours p.r.n.. Solu-Medrol 40 mg IV b.i.d.. Respiratory therapist evaluation and treatment to be done. Incentive spirometry and flutter encouraged for chest physical therapy. The patient had an elevated D-dimer of 7.91. There was suspicion of an underlying PE and the patient underwent a V/Q scan today. The V/Q scan shows low probability of pulmonary embolism. Persistent Atrial Fibrillation, rate controlled Status post Watchman procedure Not on any anticoagulation at home. Currently rate controlled. Continue Coreg 3.125 mg p.o. b.i.d. Continue telemetry monitoring. Obstructive sleep apnea on CPAP Suspected pulmonary hypertension RVSP is elevated at 50 mmHg on previous echo Continue CPAP at night. 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 Requested to follow up car worker helper in [facility]. We of the patient's MAX on CKD and establishing the patient with the car worker helper we have consulted our car worker helper on-call. The most likely cause of the patient's MAX on CKD is renal tubular stasis. We will continue to monitor the renal function test and manage accordingly. Held lisinopril and spironolactone in view of the patient's MAX on CKD. Hyperkalemia (Potassium 5.5), resolved Repeat potassium is 4.8 Monitor telemetry Likely related to CKD, medications (losartan), and possibly acidosis. Placed on a low-potassium diet. Monitor potassium levels closely. Started on Lokelma. Anemia of chronic disease History of recurrent GI bleeds History of gastric angiectasias Hematochezia The patient's H&H has dropped to 7.0 and 21.9 today. Transfuse 1 unit of PRBC today. Continue H&H monitoring. Started the patient on IV Protonix daily. He reports episodes of intermittent hematochezia since the past few months. Consulted the on-call geophysical support specialist Dr. Valenzuela. Patient is NPO from midnight. Patient will get a EGD and possibly a colonoscopy as recommended by the geophysical support specialist. Continue iron supplements. Chronic Hyponatremia Sodium 133 today. Continue to monitor the patient's electrolytes daily. Diabetes Mellitus Type 2 with Hyperglycemia likely secondary to steroids HbA1c is 6.9 Monitor blood glucose closely. Goal 140-180 Increased Lantus insulin to 25 units daily Start lispro 3 units meals Continue high dose insulin protocol Moderate protein calorie malnutrition Ensure enlive t.i.d. Code Status: Full code DVT Prophylaxis: Heparin subQ Analgesia/Sedation: Tylenol Lines/Tubes: PIV Gi Prophylaxis: Protonix Nutrition: Carb controlled diet in the view of poorly controlled diabetes, low potassium diet PT: Yes Prognosis: Guarded Disposition: Continue medical management. The patient is planned to be NPO from [facility]. Mold Unloader Dr. Valenzuela has been consulted. Patient will get EGD tomorrow. Case seen and discussed with the attending physician Dr. Arevalo. Justus Andrew MD Internal Medicine Resident, PGY-3 Date of Service: Mar 28, 2025 Billing Provider: BRENDON AREVALO MD,JUSTUS BELL, RES Mar 28, 2025 13:11
[2025-03-28 17:23] LABS: MEAN PLATELET VOLUME 7.2 FL (7.4-10.4); RED CELL DISTRIBUTION WIDTH 17.7 % (11.5-14.5)
--- NOTE | 2025-03-28 19:30 | CONSULTATION ---
DATE OF CONSULTATION: 03/28/2025 DICTATING PHYSICIAN: Marco A Cardona MD REASON FOR CONSULTATION: Anemia and GI bleeding. HISTORY OF PRESENT ILLNESS: The patient is known to me from previous hospitalizations. He came in because of what appears like shortness of breath for the past 3 weeks. Today, he was found to have hemoglobin of 7 and upon questioning he has been having some hematochezia and some dark stool. I had seen him at last hospitalization for similar problems and endoscopy had shown angioectasias that were ablated and hemoclips were placed. He was advised to follow up with me in the office, but he has not done and he has come in with similar episodes, similar picture of blood loss anemia which has been symptomatic. He has not had a colonoscopy. Currently, he feels better. He is receiving a packed red blood cell transfusion. PAST MEDICAL HISTORY: Positive for diabetes, atrial fibrillation, COPD, hypertension, also history of prostate cancer. FAMILY HISTORY: Noncontributory. PERSONAL HISTORY: Noncontributory. REVIEW OF SYSTEMS: A 12-point review of systems essentially same as history of present illness. PHYSICAL EXAMINATION: GENERAL: On physical exam, he is awake, alert, and appears to be in no apparent distress. VITAL SIGNS: Vital signs are normal. NECK: Neck is supple. HEART AND LUNGS: Normal. ABDOMEN: Soft, nontender. No masses. No organomegaly. Bowel sounds are normoactive. LABORATORY VALUES: Laboratory values were reviewed, which revealed a hemoglobin of 7 today, hematocrit of 21, MCV 78 which is indicative of chronic bleeding. Chemistry is essentially unremarkable. Coagulation profile normal. IMAGING STUDIES: Imaging studies showed a normal ultrasound and chest x-ray showed pleural effusion. IMPRESSION: Elderly man admitted with anemia who has angioectasia. I am suspecting that he is bleeding again from angioectasias. The patient has had some dark stools/melena, also hematochezia. We will plan on an endoscopy tomorrow to look for any additional AV malformations to ablate them. If not, the patient will need a colonoscopy and the prep will be done tomorrow for colonoscopy on Sunday. Discussed with the patient as well as the resident. The risks and benefits were explained, understands and wishes to proceed. Marco A Cardona MD TID: [id number] RECEIPT: [id number] JEWEL/PEDRO LUIS
[2025-03-29] VITALS (25 sets, daily range): BP systolic 87–148; BP diastolic 48–79; PULSE 44–86; RESP 15–26; TEMP 96.9–97.8; O2SAT 93–100
[2025-03-29 02:55] LABS: MEAN PLATELET VOLUME 7.2 FL (7.4-10.4); RED CELL DISTRIBUTION WIDTH 17.8 % (11.5-14.5)
[2025-03-29 06:26] LABS: MEAN PLATELET VOLUME 7.2 FL (7.4-10.4); RED CELL DISTRIBUTION WIDTH 17.5 % (11.5-14.5)
[2025-03-29 06:46] LABS: CREATININE 2.47 MG/DL (0.60-1.10); TOTAL CARBON DIOXIDE 28.7 MMOL/L (24-32); eCRCL 21 ML/MIN; eGFR 25 ML/MIN
[2025-03-29] MEDS: INSULIN LISPRO 100 UNIT/ML INSULN.PEN MULTI-DOSE SQ SCH (09:00)
[2025-03-29] MEDS ORDERED: fentaNYL/PF 50MCG/1 ML 2ML syringe ONE (09:13)
[2025-03-29] MEDS ORDERED: midazolam 1 mg/ML 2ml injection ONE (09:13)
[2025-03-29] MEDS ORDERED: propofol inj 20 ML IV ONE (09:26)
[2025-03-29] MEDS ORDERED: LIDOcaine 1%/PF 5ML 10 MG/ML VIAL ONE (09:26)
[2025-03-29 10:59] LABS: MEAN PLATELET VOLUME 7.0 FL (7.4-10.4); RED CELL DISTRIBUTION WIDTH 17.8 % (11.5-14.5)
--- NOTE | 2025-03-29 11:26 | CONSULTATION REPORT ---
Consult Providers to CC ~ History of Present Illness Primary Medical Doctor: Yoni Reason for Admit\Complaint: MAX + CKD to establish with nephrology History of Present Illness I have been asked to do renal consult on this 89-year-old male with a history of heavy tobacco use, persistent atrial fibrillation s/p Watchman procedure not on anticoagulation, CKD stage 3, COPD on 3 L home oxygen, type 2 diabetes, hypertension, prior prostatectomy, right MAX s/p prosthetic leg and sleep apnea on CPAP was referred to the ER by his software requirements engineer during a visit in the outpatient clinic. Per patient, he has been feeling short of breath since the last 2-3 weeks and he is currently not taking any diuretics at home. He endorses orthopnea, PND and swelling in legs. His current medications include prednisone 20 mg daily, iron supplements, Januvia 25 mg, losartan 50 mg, simvastatin 40 mg and carvedilol 3.125 mg. he is waiting to be seen by nephrology at this point in our office. Not yet seen by anyone yet. He denies any cough, sputum production, fever, skin infections but has a abdominal tenderness on palpation of the right upper quadrant. Allergies: Coded Allergies: Penicillins (Verified Allergy, Unknown, 01/16/25) TOUNGE EDEMA Home Medications Home Medications Active Thera Tablet (Multivitamin with Folic Acid) 400 Mcg Tablet 1 Each PO DAILY 30 Days Budesonide-Formoterol 80-4.5 (Budesonide/Formoterol Fumarate) 80 Mcg-4.5 Mcg/Actuation Hfa.aer.ad 2 Puffs PO Q12H 30 Days Carvedilol 3.125 Mg Tablet 3.125 Mg PO BID 30 Days Reported Antacid-Antigas Liquid (Mag Hydrox/Al Hydrox/Simeth) 200 Mg-200 Mg-20 Mg/5 Ml Oral.susp 30 Ml PO Q4H Airsupra 90-80 Mcg Inhaler (Albuterol Sulfate/Budesonide) 90 Mcg-80 Mcg/Actuation Hfa.aer.ad Symbicort 80-4.5 Mcg Inhaler (Budesonide/Formoterol Fumarate) 80 Mcg-4.5 Mcg/Actuation Hfa.aer.ad Prednisone (Prednisone) 10 Mg Tablet Docusate Sodium 100 Mg Caps 1 Cap PO DAILY 30 Days AM Iron (Ferrous Sulfate) 325 Mg (65 Mg Iron) Tablet 1 Tab PO DAILY 30 Days AM Probiotic (Lactobacillus Acidophilus) 10 Billion Cell Capsule 1 Cap PO DAILY 10 Days AM Simvastatin 40 Mg Tablet 1 Tab PO HS 30 Days Glipizide 10 Mg Tablet 1 Tab PO DAILY 30 Days @1800 Januvia* (Sitagliptin Phosphate*) 50 Mg Tablet 1 Tab PO DAILY 30 Days AM Vitamin C (Ascorbic Acid) 500 Mg Tablet 1 Tab PO BID Past Medical History Past Medical History DM type 2 AFib status post Watchman procedure COPD HTN Angioectasias Prostate cancer status post prostatectomy Sleep apnea on CPAP Past Surgical History Surgical History Comment Prostatectomy Right lower extremity AKA Cyst removal of the neck Family History Family History: FH: diabetes mellitus MOTHER, , Age: 96, Cause: Old age Past Social History Social History Comment Former smoker: Smoked for 35 years quit in 1989-smoked two packs per day Two shots of vodka every day until 1-1/[address] 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 Fajardo (software requirements engineer) Smoking: Quit greater than 1 year Alcohol Use: Sober ROS ROS no shortness of breath, or chest pain, or nausea, vomiting at this time. Exam Vitals: Vital Signs Date Time Temp Pulse Resp B/P (MAP) Pulse Ox O2 Delivery O2 Flow Rate FiO2 03/29/25 10:00 97.3 68 16 115/57 (76) 94 Room Air 03/29/25 09:38 6.0 03/29/25 09:28 21 General: Vital Signs: As above General: Normal body habitus, no acute distress. Skin: No rashes, lumps, ulcers, blisters, purpura or petechiae HEENT: Anicteric sclera, MICA Neck: Supple and nontender without enlargement of the thyroid, or lymphadenopathy. Chest: Normal size and shape, no tenderness, CTA bilaterally Heart: Regular. No jugular venous distention, S1 and S2 heard , no gallop Abdomen: Soft and non tender no organomegaly,BS+ Extremities: No pedal edema right AKA Neuro: Nonfocal. Diagnostic Data Last Recorded Lab Results: 03/29/25 1050 03/29/25 0451 Diagnostic Data: Laboratory Tests Test 03/26/25 14:41 03/27/25 12:25 Prothrombin Time 11.3 SECONDS (9.0-12.0) INR International Normalized Ratio 1.1 INR Activated Partial Thromboplast Time 23 SECONDS (22-32) Coagulation Comments D-Dimer 7.91 MG/L FEU (0-0.50) H D-Dimer Comment Problems: (1) Acute kidney injury superimposed on CKD Status: Acute Assessment & Plan: fluid overloaded on presentation with right sided pleural effusion requiring thoracentesis. follow up CXR today. salt restriction to 2 g per day. after load reducing agents as tolerated. high risk for silent ischemic heart disease and needs sue scan either as inpatient or as outpatient. needs to follow up with nephrology as outpatient as well periodically . At this time, he has had good negative fluid balance and will continue with diuretics. creatinine remains stable. will do the work up to rule out serological disorders. high likelihood of Dm nephropathy. He has lost his right aka with PAD. I have arranged for him to see us in [facility] office in a month after he gets out of here. No emergent need for renal replacement therapy. Avoid NSAIDs thoroughly. Avoid contrast iv. use dilaudid for pain control and avoid morphine. (2) Diabetes mellitus Status: Chronic Assessment & Plan: as above. need hbA1C to be controlled. consider SGLt2i (3) Anemia Status: Acute Assessment & Plan: check iron profile and replace as needed. use epogen if the iron is normal. (4) Afib Status: Chronic Assessment & Plan: stable. CHEMA SANTA MD Mar 29, 2025 11:26
[2025-03-29] MEDS: PEG 3350/Na sulf,bicarb,Cl/KCl oral sol 4 liter bottle PO ONE (12:18)
--- NOTE | 2025-03-29 12:18 | PROGRESS NOTE- Residence ---
Progress Note - Resident Providers to CC Resident Creating Document: TRISTIN RODRIGUEZ CC: BRENDON AREVALO MD ~ Antibiotic Timeout Antibiotic Ordered?: No Subjective Patient was seen and evaluated today at bedside. Patient came back from GI lab, he underwent EGD which he tolerated well. He will start the prep for colonoscopy. He otherwise denies chest pain, shortness of breath, palpitations or any other subjective symptoms. Objective Vital Signs Date Time Temp Pulse Resp B/P (MAP) Pulse Ox O2 Delivery O2 Flow Rate FiO2 03/29/25 11:48 80 18 Room Air 0.0 03/29/25 11:42 96 21 03/29/25 10:00 97.3 115/57 (76) Result Diagram: 03/29/25 1050 03/29/25 0451 General: Moderately built elderly male, Alert, awake, oriented, in moderate acute respiratory distress HEENT: PERRLA, no icterus, pallor, lymphadenopathy, carotid bruit Respiratory system: improved breath sounds on the right, mildly decreased breath sounds on the left,no wheezing, mild crackles on auscultation CVS: Irregularly irregular heart rate, S1-S2 heard, no murmurs/rubs/gallop GI: Soft, no organomegaly, no guarding/rigidity, bowel sounds present Neuro: No focal neurological deficits present. Cranial examination is normal, motor and sensory nerve examination is normal Extremities: Right lower extremity BKA, trace pitting edema in the left lower extremity Musculoskeletal: Right lower extremity AKA, no deformities Skin: Warm and dry Psych: Normal mood and affect Coagulation Studies Laboratory Tests Test 03/26/25 14:41 03/27/25 12:25 Prothrombin Time 11.3 SECONDS (9.0-12.0) INR International Normalized Ratio 1.1 INR Activated Partial Thromboplast Time 23 SECONDS (22-32) Coagulation Comments D-Dimer 7.91 MG/L FEU (0-0.50) H D-Dimer Comment Assessment Assessment 89-year-old male with past medical history of congestive heart failure, COPD, chronic hypoxemic respiratory failure on 2-3 L oxygen at home intermittently, AFib status post Watchman procedure, anemia, GI bleed is admitted in the hospital for evaluation and management of acute on chronic hypoxemic respiratory failure secondary to acute CHF exacerbation with reduced ejection fraction, bilateral pleural effusion and COPD exacerbation. He is now being evaluated for possible GI bleed. Plan Plan Acute exacerbation of congestive heart failure with reduced ejection fraction Bilateral pleural effusion-transudative Repeat echocardiography from this admission shows the patient's left ventricular ejection fraction of 40% and right ventricular systolic pressure 58 mmHg. The patient has significantly elevated proBNP [place] than 55852. Chest x-ray shows increased pulmonary vascular congestion with a bilateral pleural effusions. The patient underwent thoracentesis of the right side yesterday and 750 cc of fluid was drained. Lights criteria shows serum pleural fluid LDH/ serum LDH of 0.3, pleural protein/serum protein 0.3. The pleural fluid is transudative secondary to underlying congestive heart failure. Continue IV Lasix 40 mg b.i.d. Strict input and output monitoring. Fluid restriction to 1.5 L recommended. But will hold during bowel prep Restarted GDM T on Jardiance 10 mg p.o. daily and Coreg 3.125 mg b.i.d.. In view of the patient's CKD lisinopril and spironolactone currently on hold. The patient's provider network mgr Dr. 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 Per Dr. Fajardo patient can follow up at the clinic post discharge. Acute on chronic hypoxemic respiratory failure, resolved Community-acquired pneumonia covering Gram-positive and Gram-negative bacteria COPD exacerbation, improving Multiple pulmonary nodules-suspected lung malignancy The patient's oxygen requirement has a improved. Today's on 1 L oxygen via nasal cannula. His wheezing has improved significantly. Continue IV ceftriaxone and azithromycin. Continue DuoNeb nebulizations q.4 hours scheduled and q.2 hours p.r.n.. Decrease Solu-Medrol to 40 mg IV daily Respiratory therapist evaluation and treatment to be done. Incentive spirometry and flutter encouraged for chest physical therapy. The patient had an elevated D-dimer of 7.91. There was suspicion of an underlying PE and the patient underwent a V/Q scan today. The V/Q scan shows low probability of pulmonary embolism. Will continue monitoring Persistent Atrial Fibrillation, rate controlled Status post Watchman procedure Not on any anticoagulation at home. Currently rate controlled. Continue Coreg 3.125 mg p.o. b.i.d. Continue telemetry monitoring. Obstructive sleep apnea on CPAP Suspected pulmonary hypertension RVSP is elevated at 50 mmHg on previous echo Continue CPAP at night. 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 Requested to follow up rod and tube straightener in town. We of the patient's MAX on CKD and establishing the patient with the rod and tube straightener we have consulted our rod and tube straightener on-call. The most likely cause of the patient's MAX on CKD is renal tubular stasis. We will continue to monitor the renal function test and manage accordingly. Held lisinopril and spironolactone in view of the patient's MAX on CKD. Dr Vicente consulted. Appreciate recommendations Hyperkalemia (Potassium 5.5), resolved Repeat potassium is 4.3 Monitor telemetry Likely related to CKD, medications (losartan), and possibly acidosis. Placed on a low-potassium diet. Monitor potassium levels closely. LISA Lokelwa Anemia of chronic disease History of recurrent GI bleeds History of gastric angiectasias Hematochezia The patient's H&H had dropped to 7.0 and 21.9 yesterday. Hb is 8.7 today He reports episodes of intermittent hematochezia since the past few months. Transfuse 1 unit of PRBC today. Continue H&H monitoring. EGD today showed no signs of bleeding Continue 40mg IV Protonix daily Continue iron supplements Start Golytely Start clear liquid diet Chronic Hyponatremia Sodium 136 today. Continue to monitor the patient's electrolytes daily. Diabetes Mellitus Type 2 with Hyperglycemia likely secondary to steroids HbA1c is 6.9 Monitor blood glucose closely. Goal 140-180 Increased Lantus insulin to 25 units daily Continue lispro 3 units meals Continue high dose insulin protocol Moderate protein calorie malnutrition Ensure enlive t.i.d. Code Status: Full code DVT Prophylaxis: Heparin subQ Analgesia/Sedation: Tylenol Lines/Tubes: PIV Gi Prophylaxis: Protonix Nutrition: Carb controlled diet in the view of poorly controlled diabetes, low potassium diet PT: Yes Prognosis: Guarded Disposition: Continue medical management. Colonoscopy tomorrow Patient has been discussed in detail with senior resident (PGY-3), as well as attending physician, Dr. Arevalo. Tristin Smith MD Internal Medicine Resident PGY-2 Date of Service: Mar 29, 2025 Billing Provider: BRENDON AREVALO MD, LEONARDO LUIS Mar 29, 2025 12:17
[2025-03-29 18:15] LABS: OCCULT BLOOD STOOL NEGATIVE (Neg)
[2025-03-29] MEDS: insulin glargine (Lantus) pen - multi-dose SQ SCH (20:15)
[2025-03-30] VITALS (22 sets, daily range): BP systolic 91–143; BP diastolic 44–64; PULSE 59–104; RESP 11–18; TEMP 96.3–97.9; O2SAT 95–100
[2025-03-30 06:19] LABS: MEAN PLATELET VOLUME 7.1 FL (7.4-10.4); RED CELL DISTRIBUTION WIDTH 17.8 % (11.5-14.5)
[2025-03-30 06:48] LABS: CREATININE 2.04 MG/DL (0.60-1.10); TOTAL CARBON DIOXIDE 32.5 MMOL/L (24-32); eCRCL 25 ML/MIN; eGFR 31 ML/MIN
[2025-03-30] MEDS: dextrose 50%-water 50ml dispensing syringe IV PRN (07:14)
--- NOTE | 2025-03-30 07:51 | PROGRESS NOTE ---
Progress Note Dictate Providers to CC ~ Central Line/PICC still needed: No Mcfadden Indications Met/Not Met: F/C Indications Not Met Antibiotic Ordered?: N/A Subjective Subjective The patient has had a mild positive fluid balance last 24 hours. will repeat CXR to see if there is improvement in infiltrates. creatinien is stable at 2.0 Objective Vitals Vital Signs Date Time Temp Pulse Resp B/P (MAP) Pulse Ox O2 Delivery O2 Flow Rate FiO2 03/30/25 15:15 74 16 Room Air 0.0 03/30/25 15:07 98 21 03/30/25 13:40 122/56 (78) 03/30/25 13:00 97.5 Lab Results: 03/30/25 0529 03/30/25 0529 Objective Vital Signs: As above General: Normal body habitus, no acute distress. Skin: No rashes, lumps, ulcers, blisters, purpura or petechiae HEENT: Anicteric sclera, MICA Neck: Supple and nontender without enlargement of the thyroid, or lymphadenopathy. Chest: few crackles mostly right sided. recent thoracentesis Heart: Regular. No jugular venous distention, S1 and S2 heard , no gallop Abdomen: Soft and non tender no organomegaly,BS+ Extremities: No pedal edema right AKA Neuro: Nonfocal. Coagulation Studies Laboratory Tests Test 03/26/25 14:41 03/27/25 12:25 Prothrombin Time 11.3 SECONDS (9.0-12.0) INR International Normalized Ratio 1.1 INR Activated Partial Thromboplast Time 23 SECONDS (22-32) Coagulation Comments D-Dimer 7.91 MG/L FEU (0-0.50) H D-Dimer Comment Advance Care Planning Advanced Care plannin - 30 Minutes Problem\Assessment\Plan Problems/Diagnosis: (1) Acute kidney injury superimposed on CKD Assessment & Plan: The patient is a long standing diabetic. He has proteinuria. will do the proteinuria work up to rule out serological disorders. will request renal US to rule out any hydronephrosis or atrophic kidneys. 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 he has had retinopathy. 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 (3) Anemia Assessment & Plan: will check iro profile and give epogen today. (4) Afib Assessment & Plan: defer to primary team CHEMA SANTA MD Mar 30, 2025 07:50
[2025-03-30] MEDS: methylPREDNISolone sod succ/PF 40mg inj. IV SCH (08:40)
[2025-03-30] MEDS ORDERED: magnesium sulf-water 4G/100mL 100 ML IV PRN (08:50)
[2025-03-30] MEDS ORDERED: magnesium Cl slow-release 64mg tablet PO PRN (08:50)
[2025-03-30] MEDS ORDERED: potassium Cl 20 mEq SR tablet PO PRN (08:50)
[2025-03-30] MEDS ORDERED: potassium Cl 40MEQ/1/2NS 520ml 520 ML IV PRN (08:50)
[2025-03-30] MEDS: potassium Cl 20 mEq SR tablet PO PRN (09:18)
[2025-03-30] MEDS: EPOETIN ALFA-EPBX 20,000 UNIT/ML 1 ML MDV SQ ONE (09:45)
[2025-03-30 10:17] LABS: % IRON SATURATION 16 % (11-46)
[2025-03-30] MEDS ORDERED: propofol inj 20 ML IV ONE ×2 (12:57)
[2025-03-30] MEDS ORDERED: EPLE25TA24 PO (17:11)
--- NOTE | 2025-03-30 18:39 | PROGRESS NOTE- Residence ---
Progress Note - Resident Providers to CC Resident Creating Document: TRISTIN RODRIGUEZ CC: BRENDON AREVALO MD ~ Antibiotic Timeout Antibiotic Ordered?: No Subjective Patient was seen and evaluated today at bedside. He reports to be feeling well. No overnight events. He completed GoLYTELY for colonoscopy prep with no issues. Objective Vital Signs Date Time Temp Pulse Resp B/P (MAP) Pulse Ox O2 Delivery O2 Flow Rate FiO2 03/30/25 15:15 74 16 Room Air 0.0 03/30/25 15:07 98 21 03/30/25 13:40 122/56 (78) 03/30/25 13:00 97.5 Result Diagram: 03/30/2552803/30/25528 General: Moderately built elderly male, Alert, awake, oriented, in moderate acute respiratory distress HEENT: PERRLA, no icterus, pallor, lymphadenopathy, carotid bruit Respiratory system: improved breath sounds on the right, mildly decreased breath sounds on the left,no wheezing, mild crackles on auscultation CVS: Irregularly irregular heart rate, S1-S2 heard, no murmurs/rubs/gallop GI: Soft, no organomegaly, no guarding/rigidity, bowel sounds present Neuro: No focal neurological deficits present. Cranial examination is normal, motor and sensory nerve examination is normal Extremities: Right lower extremity BKA, trace pitting edema in the left lower extremity Musculoskeletal: Right lower extremity BKA, no deformities Skin: Warm and dry Psych: Normal mood and affect Coagulation Studies Laboratory Tests Test 03/26/25 14:41 03/27/25 12:25 Prothrombin Time 11.3 SECONDS (9.0-12.0) INR International Normalized Ratio 1.1 INR Activated Partial Thromboplast Time 23 SECONDS (22-32) Coagulation Comments D-Dimer 7.91 MG/L FEU (0-0.50) H D-Dimer Comment Assessment Assessment 89-year-old male with past medical history of congestive heart failure, COPD, chronic hypoxemic respiratory failure on 2-3 L oxygen at home intermittently, AFib status post Watchman procedure, anemia, GI bleed is admitted in the hospital for evaluation and management of acute on chronic hypoxemic respiratory failure secondary to acute CHF exacerbation with reduced ejection fraction, bilateral pleural effusion and COPD exacerbation. He is now being evaluated for possible GI bleed. Plan Plan Acute exacerbation of congestive heart failure with reduced ejection fraction Bilateral pleural effusion-transudative Repeat echocardiography from this admission shows the patient's left ventricular ejection fraction of 40% and right ventricular systolic pressure 58 mmHg. The patient has significantly elevated proBNP of greater than [id number]. Chest x-ray shows increased pulmonary vascular congestion with a bilateral pleural effusions. The patient underwent thoracentesis of the right side yesterday and 750 cc of fluid was drained. Lights criteria shows serum pleural fluid LDH/ serum LDH of 0.3, pleural protein/serum protein 0.3. The pleural fluid is transudative secondary to underlying congestive heart failure. Continue IV Lasix 40 mg b.i.d. Continue Strict input and output monitoring. Fluid restriction to 1.5 L recommended. But will hold during bowel prep Restarted GDM T on Jardiance 10 mg p.o. daily and Coreg 3.125 mg b.i.d.. In view of the patient's CKD lisinopril and spironolactone currently on hold. The patient's reimbursement manager Dr. 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 Per Dr. Fajardo patient can follow up at the clinic post discharge. Acute on chronic hypoxemic respiratory failure, resolved Community-acquired pneumonia covering Gram-positive and Gram-negative bacteria COPD exacerbation, improving Multiple pulmonary nodules-suspected lung malignancy PE ruled out The patient's oxygen requirement has a improved. Today's on 1 L oxygen via nasal cannula. His wheezing has improved significantly. Continue IV ceftriaxone, day 4 Completed azithromycin Continue DuoNeb nebulizations q.4 hours scheduled and q.2 hours p.r.n.. Continue Solu-Medrol to 40 mg IV daily Incentive spirometry and flutter encouraged Will continue monitoring Persistent Atrial Fibrillation, rate controlled Status post Watchman procedure Not on any anticoagulation at home. Currently rate controlled. Continue Coreg 3.125 mg p.o. b.i.d. Continue telemetry monitoring. Obstructive sleep apnea on CPAP Suspected pulmonary hypertension RVSP is elevated at 50 mmHg on previous echo Continue CPAP at night. 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 Requested to follow up charcoal kiln burner in town. We of the patient's MAX on CKD and establishing the patient with the charcoal kiln burner we have consulted our charcoal kiln burner on-call. The most likely cause of the patient's MAX on CKD is renal tubular stasis. We will continue to monitor the renal function test and manage accordingly. Held lisinopril and spironolactone in view of the patient's MAX on CKD. IV Lasix as above Dr Vicente consulted. Recommended renal ultrasound and further laboratory tests. Appreciate recommendations Hyperkalemia (Potassium 5.5), resolved Repeat potassium is 4.3 Monitor telemetry Likely related to CKD, medications (losartan), and possibly acidosis. Placed on a low-potassium diet. Monitor potassium levels closely. [facility] Anemia of chronic disease History of recurrent GI bleeds History of gastric angiectasias Hematochezia, resolved The patient's H&H had dropped to 7.0 and 21.9 yesterday. Hb is 8.7 today He reports episodes of intermittent hematochezia since the past few months. Transfuse 1 unit of PRBC today. Continue H&H monitoring. EGD today showed no signs of bleeding Colonoscopy today showed diverticulosis with angiodysplasias, but no active bleeding Continue 40mg IV Protonix daily Continue iron supplements Resume diet Chronic Hyponatremia Sodium is stable Continue to monitor the patient's electrolytes daily. Diabetes Mellitus Type 2 with Hyperglycemia likely secondary to steroids HbA1c is 6.9 Monitor blood glucose closely. Goal 140-180 Increased Lantus insulin to 25 units daily Continue lispro 3 units meals Continue high dose insulin protocol Moderate protein calorie malnutrition Ensure enlive t.i.d. Code Status: Full code DVT Prophylaxis: Heparin subQ Analgesia/Sedation: Tylenol Lines/Tubes: PIV Gi Prophylaxis: Protonix Nutrition: Carb controlled diet in the view of poorly controlled diabetes, low potassium diet PT: Yes Prognosis: Guarded Disposition: Continue medical management. Continue recommendations per Nephrology Patient has been discussed in detail with senior resident (PGY-3), as well as attending physician, Dr. Arevalo. Tristin Smith MD Internal Medicine Resident PGY-2 Date of Service: Mar 30, 2025 Billing Provider: BRENDON AREVALO MD, LEONARDO LUIS Mar 30, 2025 18:39
--- NOTE | 2025-03-30 20:59 | RADIOLOGY REPORT ---
INDICATION: yesica TECHNIQUE: Multiple real-time sonographic images of the kidneys and bladder were obtained. COMPARISON: US ULTRASOUND KIDNEY NON VASC on DOS: 01/16/25, US ULTRASOUND KIDNEY NON VASC on DOS: 08/26/23 FINDINGS: The right kidney measures 11 x 5.1 x 5.7 cm cm in length, which is normal in size. There is normal echogenicity of the right kidney. No hydronephrosis. 3.4 cm cystic structure adjacent to the right kidney which may represent an exophytic cyst The left kidney measures 11 x 5.1 x 5 cm cm in length, which is normal in size. There is normal echogenicity of the left kidney. No hydronephrosis. 2.9 cm left renal cyst. Urinary bladder is tfey-nx-dxuoezfidy distended. Otherwise unremarkable. Urinary bladder volume of 500 cc. IMPRESSION: No Hydronephrosis bilaterally. Left renal cyst with Suggested Right renal cyst. Urinary bladder is gktc-hk-btmtdeccko distended. Otherwise unremarkable. Urinary bladder volume of 500 cc.
--- NOTE | 2025-03-30 21:28 | RADIOLOGY REPORT ---
CHEST RADIOGRAPH Indication: chf, right sided loculated pleural eff s/p thoracentesis. follow up Technique: 1 view Comparison: DI CHEST,SINGLE VIEW on DOS: 03/28/25, DI CHEST,SINGLE VIEW on DOS: 03/26/25, DI CHEST,SINGLE VIEW on DOS: 01/16/25, DI CHEST,SINGLE VIEW on DOS: 12/30/24, DI CHEST,SINGLE VIEW on DOS: 08/02/24 FINDINGS: Lines and Tubes: None. Lungs/Pleura: Unchanged. Cardiomediastinum: Unchanged. Other: Unchanged osseous structures. IMPRESSION: No significant change from 2 days prior. Persistent right worse than left mixed pulmonary opacities and pleural effusions. No evident pneumothorax.
[2025-03-31] VITALS (12 sets, daily range): BP systolic 108–123; BP diastolic 40–45; PULSE 57–90; RESP 16–18; TEMP 97–97.8; O2SAT 96–100
[2025-03-31 05:24] LABS: MEAN PLATELET VOLUME 7.0 FL (7.4-10.4); RED CELL DISTRIBUTION WIDTH 17.9 % (11.5-14.5)
[2025-03-31 05:37] LABS: CREATININE 2.51 MG/DL (0.60-1.10); LACTATE DEHYDROGENASE 102 U/L (85-227); TOTAL CARBON DIOXIDE 31.7 MMOL/L (24-32); eCRCL 21 ML/MIN; eGFR 24 ML/MIN
[2025-03-31] MEDS: iron sucrose complex injection 200 MG in normal saline 100ml IV soln 100 ML IV SCH (08:15)
--- NOTE | 2025-03-31 08:18 | PROGRESS NOTE ---
Progress Note Dictate Providers to CC ~ Central Line/PICC still needed: No Mcfadden Indications Met/Not Met: F/C Indications Not Met Antibiotic Ordered?: N/A Subjective Subjective the CXR shows persistent pleural effusions bilaterally, possible loculations, and pulmonary nodules. Needs PULMONARY CONSULT FROM please. also needs Thyroid Ultrasound for the mass identified. Or CT of the neck whichever is possible. Creatinine is rising from ciera diuresis being attempted. Objective Vitals Vital Signs Date Time Temp Pulse Resp B/P (MAP) Pulse Ox O2 Delivery O2 Flow Rate FiO2 03/31/25 06:00 97.0 69 18 123/45 (71) 100 Bi-pap/CPAP 03/31/25 03:37 2.0 28 Lab Results: 03/31/25 0500 03/31/25 0500 Objective Vital Signs: As above General: Normal body habitus, no acute distress. Skin: No rashes, lumps, ulcers, blisters, purpura or petechiae HEENT: Anicteric sclera, MICA Neck: Supple and nontender without enlargement of the thyroid, or lymphadenopathy. Chest: few crackles mostly right sided. recent thoracentesis Heart: Regular. No jugular venous distention, S1 and S2 heard , no gallop Abdomen: Soft and non tender no organomegaly,BS+ Extremities: No pedal edema right AKA Neuro: Nonfocal. Coagulation Studies Laboratory Tests Test 03/26/25 14:41 03/27/25 12:25 Prothrombin Time 11.3 SECONDS (9.0-12.0) INR International Normalized Ratio 1.1 INR Activated Partial Thromboplast Time 23 SECONDS (22-32) Coagulation Comments D-Dimer 7.91 MG/L FEU (0-0.50) H D-Dimer Comment Advance Care Planning Advanced Care plannin - 30 Minutes Problem\Assessment\Plan Problems/Diagnosis: (1) Acute kidney injury superimposed on CKD Assessment & Plan: fluid overloaded on presentation with right sided pleural effusion requiring thoracentesis. follow up CXR last night showed persistent pleural effusions and nodules. needs pulmonary consult. salt restriction to 2 g per day. after load reducing agents as tolerated. high risk for silent ischemic heart disease and needs sue scan either as inpatient or as outpatient. needs to follow up with nephrology as outpatient as well periodically . At this time, he has had good negative fluid balance and will continue with diuretics. creatinine remains stable. will do the work up to rule out serological disorders. high likelihood of Dm nephropathy. He has lost his right aka with PAD. I have arranged for him to see us in [facility] office in a month after he gets out of here. No emergent need for renal replacement therapy. Avoid NSAIDs thoroughly. Avoid contrast iv. use dilaudid for pain control and avoid morphine. (2) Diabetes mellitus Assessment & Plan: as above. need hbA1C to be controlled. consider SGLt2i (3) Anemia Assessment & Plan: iron deficiency noted. started Venofer. stop PO ferrous sulfate. (4) Afib Assessment & Plan: stable. CHEMA SANTA MD Mar 31, 2025 08:18
--- NOTE | 2025-03-31 10:06 | PROGRESS NOTE- Residence ---
Progress Note - Resident Providers to CC Resident Creating Document: CORNELIO HUGGINS RES ~ Antibiotic Timeout Antibiotic Ordered?: No Subjective Patient seen and examined at bedside. He is feeling better, denies any more episodes of hematochezia or melena. No new complaints reported. Objective Vital Signs Date Time Temp Pulse Resp B/P (MAP) Pulse Ox O2 Delivery O2 Flow Rate FiO2 03/31/25 08:49 72 03/31/25 06:00 97.0 18 123/45 (71) 100 Bi-pap/CPAP 03/31/25 03:37 2.0 28 Result Diagram: 03/31/25 0500 03/31/25 0500 General: Alert, awake, oriented, in no acute distress HEENT: PERRLA, no icterus, pallor, lymphadenopathy, carotid bruit Respiratory system: Diminished air movement bilaterally, bibasilar crackles ,no wheezing auscultation CVS: Irregularly irregular heart rate, S1-S2 heard, no murmurs/rubs/gallop GI: Soft, normal bowel movements, no tenderness to palpation, no guarding or rebound, organomegaly Extremities: Right lower extremity BKA, trace pitting edema in the left lower extremity Skin: Warm and dry Coagulation Studies Laboratory Tests Test 03/26/25 14:41 03/27/25 12:25 Prothrombin Time 11.3 SECONDS (9.0-12.0) INR International Normalized Ratio 1.1 INR Activated Partial Thromboplast Time 23 SECONDS (22-32) Coagulation Comments D-Dimer 7.91 MG/L FEU (0-0.50) H D-Dimer Comment Plan Plan Assessment/plan 89-year-old male with past medical history of congestive heart failure, COPD, AFib status post Watchman procedure, anemia, consulted was requested in view of lower GI bleeding. Endoscopy showed multiple colonic angiectasis, treated with argon plasma coagulation. Patient has been stable since admission. Lower GI bleeding 2/2 colonic angiodysplasia - required 1 unit of PRBC but H&H has been stable since admission. Hb is 8.6 today - colonoscopy showed moderate diverticulosis in the sigmoid colon and multiple nonbleeding angioectasias treated with argon plasma coagulation. - follow-up outpatient in three weeks - colonoscopy planned in the future for further ablation of AVMs - continue regular diet - no further GI intervention at this moment Acute on chronic HFpEF Acute on chronic hypoxemic respiratory failure, resolved Community-acquired pneumonia COPD exacerbation Persistent AFib s/p Watchman procedure SUSU/ Acute on CKD / Hyperkalemia / hyponatremia - management per primary team Patient was seen, examined and discussed with the attending physician Dr. Valenzuela Date of Service: Mar 31, 2025 Billing Provider: ARMIN SILVER MD, LUCAS, RES Mar 31, 2025 10:06
--- NOTE | 2025-03-31 11:38 | RADIOLOGY REPORT ---
ULTRASOUND SOFT TISSUE HEAD AND NECK CLINICAL INDICATION: Thyroid for mass seen on CT TECHNIQUE: Multiple real time sonographic images of the thyroid were obtained. COMPARISON: US ULTRASOUND HEAD NECK on DOS: 01/16/25, CT CT NECK SOFT TISSUES on DOS: 01/16/25 FINDINGS: The right lobe measures 4.0 x 1.9 x 2.1 cm The left lobe measures 3.0 x 1.9 x 1.4 cm The isthmus measures 0.4 cm NODULES: Isoechoic nodule in the right lower thyroid measures 2.3 cm, TR 3. Isoechoic nodule in the left lower thyroid measures 1.5 cm, TR 3. IMPRESSION: Bilateral TR 3 nodules, as above. [employer] TI-RADS Categories and Recommendations (2017): TR1: 0 points, Benign, No FNA TR2: 2 points, Not suspicious, No FNA TR3: 3 points, Mildly suspicious, FNA if > or = 2.5 cm, Follow if > or = 1.5 cm TR4: 4-6 points, Moderately Suspicious, FNA if > or = 1.5 cm, Follow if > or = 1.0 cm TR5: 7+ points, Highly Suspicious, FNA if > or = 1.0 cm, Follow if > or = 0.5 cm Follow-up ultrasound guidelines: TR5: yearly for 5 years, if no growth or change in TI-RADS level TR4: at 1, 2, 3 and 5 years, if no growth or change in TI-RADS level TR3: at 1, 3 and 5 years, if no growth or change in TI-RADS level If change but below threshold for FNA, repeat in one year. Source: ACR Thyroid Imaging, Reporting and Data System (TI-RADS): White Paper of the ACR TI-RADS Committee. Lorraine saldana al., J Am Costa Radiol 2017;14:587-595.
--- NOTE | 2025-03-31 13:51 | RADIOLOGY REPORT ---
CT Chest without intravenous contrast INDICATION: pleural effusion, SOB TECHNIQUE: Multidetector spiral CT of the chest was performed from the lung apices to the upper abdomen. Axial, coronal and sagittal multiplanar reformats were performed. Radiation Dose : 1. Chest: CTDI volume is 17.59 mGy. Dose-length product is 682.97 mGy*cm The dose indicators for CT are the volume Computed Tomography (CT) Dose Index (CTDIvol) and the Dose Length Product (DLP), and are measured in units of mGy and mGy-cm, respectively. These indicators are not patient dose, but values generated from the CT scanner acquisition factors. The report includes radiation exposure data for exposures received during this examination. COMPARISON: CT CT CHEST on DOS: 03/27/25, CT CT CHEST on DOS: 01/16/25, CT CT CHEST on DOS: 12/30/24 FINDINGS: Lower neck: Normal thyroid. Lungs: Moderate passive atelectatic changes throughout the pmqip-bsvnwwg-dhpx-left lower lobes. Innumerable pulmonary nodules again noted throughout both lungs. Heart/Vascular Structures: Multichamber cardiac enlargement. Coronary calcifications. No pericardial effusion. Dilated central pulmonary arteries, unchanged. Lymph Nodes: No adenopathy Pleura: Stable small left-sided pleural effusion. Moderate size hydropneumothorax on the right with layering air and fluid at the lung base. Musculoskeletal: No acute osseous abnormality. Soft tissues: Stable large right-sided thyroid nodule extending into the superior mediastinum, unchanged. Upper abdomen: Limited portions of the upper abdomen are unremarkable. IMPRESSION: Moderate size right-sided hydropneumothorax with layering air and fluid in the pleural space. Stable left-sided pleural effusion. Interval bilateral pulmonary nodules again noted. Radiation optimization: All CT scans at this facility use at least one of these dose optimization techniques: automated exposure control mA and/or kV adjustment per patient size (includes targeted exams where dose is matched to clinical indication) or iterative reconstruction.
--- NOTE | 2025-03-31 17:21 | CONSULTATION REPORT - RESIDENT ---
Consult Providers to CC Resident Creating Document: ELIZA FULTON NENA MCLAIN History of Present Illness Reason for Admit\Complaint: Pleural effusion History of Present Illness The patient is an 89-year-old male with past medical history of nicotine use disorder, atrial fibrillation, CKD, COPD, diabetes, hypertension, sleep apnea, presented to the ED with complaints of shortness of breath since last 2-3 weeks. He initially had bilateral pleural effusions from congestive heart failure and underwent right thoracentesis with removal of 750 mL transudative fluid. Pulmonology consulted for recurrent loculated right pleural effusion and bilateral pulmonary nodules. Allergies: Coded Allergies: Penicillins (Verified Allergy, Unknown, 01/16/25) TOUNGE EDEMA Home Medications Home Medications Active Thera Tablet (Multivitamin with Folic Acid) 400 Mcg Tablet 1 Each PO DAILY 30 Days Budesonide-Formoterol 80-4.5 (Budesonide/Formoterol Fumarate) 80 Mcg-4.5 Mcg/Actuation Hfa.aer.ad 2 Puffs PO Q12H 30 Days Carvedilol 3.125 Mg Tablet 3.125 Mg PO BID 30 Days Reported Antacid-Antigas Liquid (Mag Hydrox/Al Hydrox/Simeth) 200 Mg-200 Mg-20 Mg/5 Ml Oral.susp 30 Ml PO Q4H Airsupra 90-80 Mcg Inhaler (Albuterol Sulfate/Budesonide) 90 Mcg-80 Mcg/Actuation Hfa.aer.ad Symbicort 80-4.5 Mcg Inhaler (Budesonide/Formoterol Fumarate) 80 Mcg-4.5 Mcg/Actuation Hfa.aer.ad Prednisone (Prednisone) 10 Mg Tablet Docusate Sodium 100 Mg Caps 1 Cap PO DAILY 30 Days AM Iron (Ferrous Sulfate) 325 Mg (65 Mg Iron) Tablet 1 Tab PO DAILY 30 Days AM Probiotic (Lactobacillus Acidophilus) 10 Billion Cell Capsule 1 Cap PO DAILY 10 Days AM Simvastatin 40 Mg Tablet 1 Tab PO HS 30 Days Glipizide 10 Mg Tablet 1 Tab PO DAILY 30 Days @1800 Januvia* (Sitagliptin Phosphate*) 50 Mg Tablet 1 Tab PO DAILY 30 Days AM Vitamin C (Ascorbic Acid) 500 Mg Tablet 1 Tab PO BID Past Medical History Past Medical History DM type 2 AFib status post Watchman procedure COPD HTN Angioectasias Prostate cancer status post prostatectomy Sleep apnea on CPAP Past Surgical History Surgical History Comment Prostatectomy Right lower extremity AKA Cyst removal of the neck Family History Family History: FH: diabetes mellitus MOTHER, , Age: 96, Cause: Old age Exam Vitals: Vital Signs Date Time Temp Pulse Resp B/P (MAP) Pulse Ox O2 Delivery O2 Flow Rate FiO2 03/31/25 15:13 77 16 Room Air 0.0 03/31/25 15:08 100 21 03/31/25 06:00 97.0 123/45 (71) General: General: Awake and alert HEENT: PERRLA, no icterus, pallor, lymphadenopathy, carotid bruit Respiratory system: Diminished breath sounds on right lower lung coronado, bibasilar crackles heard CVS: Irregularly irregular heart rate, S1-S2 heard, no murmurs/rubs/gallop GI: Soft, no organomegaly, no guarding/rigidity, bowel sounds present Neuro: No focal neurological deficits present. Cranial examination is normal, motor and sensory nerve examination is normal Extremities: Right lower extremity BKA, trace pitting edema in the left lower extremity Musculoskeletal: Right lower extremity BKA, no deformities Skin: Warm and dry Psych: Normal mood and affect Diagnostic Data Last Recorded Lab Results: 03/31/25 0500 03/31/25 0500 Diagnostic Data: Laboratory Tests Test 03/26/25 14:41 03/27/25 12:25 Prothrombin Time 11.3 SECONDS (9.0-12.0) INR International Normalized Ratio 1.1 INR Activated Partial Thromboplast Time 23 SECONDS (22-32) Coagulation Comments D-Dimer 7.91 MG/L FEU (0-0.50) H D-Dimer Comment Problems: (1) Diabetes mellitus Status: Chronic (2) Anemia Status: Acute (3) Hypertension Status: Chronic (4) Afib Status: Chronic (5) Acute kidney injury superimposed on CKD Status: Acute (6) Acute exacerbation of CHF (congestive heart failure) Status: Acute (7) Shortness of breath Status: Acute (8) Anemia Status: Acute (9) Chronic obstructive pulmonary disease Status: Acute Additional Plan Right hydropneumothorax CHF exacerbation Repeat CT chest with no contrast today showed moderate sized right-sided hydropneumothorax with layering air and fluid in the pleural space. There is also stable left-sided pleural effusion. Patient will need pigtail catheter placement by IR. Numerous bilateral pulmonary nodules Nicotine use disorder COPD Outpatient follow up. Eliza Fulton MD Internal Medicine Resident, PGY-2 The patient was seen, examined and discussed with the attending physician, Dr. Hoffmann. Date of Service: Mar 31, 2025 Billing Provider: FLOR HOFFMANN MD,ELIZA MCLAIN, RES Mar 31, 2025 17:21
--- NOTE | 2025-03-31 18:35 | PROGRESS NOTE- Residence ---
Progress Note - Resident Providers to CC Resident Creating Document: TRISTIN RODRIGUEZ CC: BRENDON AREVALO MD ~ Antibiotic Timeout Antibiotic Ordered?: Yes Subjective Patient seen and examined at bedside today. He reports to be feeling well, breathing is at baseline per patient. He denies fevers, chills, cough or any other subjective symptoms. Objective Vital Signs Date Time Temp Pulse Resp B/P (MAP) Pulse Ox O2 Delivery O2 Flow Rate FiO2 03/31/25 15:13 77 16 Room Air 0.0 03/31/25 15:08 100 21 03/31/25 06:00 97.0 123/45 (71) Result Diagram: 03/31/25 0500 03/31/25 0500 General: Moderately built elderly male, Alert, awake, oriented, in moderate acute respiratory distress HEENT: PERRLA, no icterus, pallor, lymphadenopathy, carotid bruit Respiratory system: improved breath sounds on the right, mildly decreased breath sounds on the left,no wheezing, mild crackles on auscultation CVS: Irregularly irregular heart rate, S1-S2 heard, no murmurs/rubs/gallop GI: Soft, no organomegaly, no guarding/rigidity, bowel sounds present Neuro: No focal neurological deficits present. Cranial examination is normal, motor and sensory nerve examination is normal Extremities: Right lower extremity BKA, trace pitting edema in the left lower extremity Musculoskeletal: Right lower extremity BKA, no deformities Skin: Warm and dry Psych: Normal mood and affect Coagulation Studies Laboratory Tests Test 03/26/25 14:41 03/27/25 12:25 Prothrombin Time 11.3 SECONDS (9.0-12.0) INR International Normalized Ratio 1.1 INR Activated Partial Thromboplast Time 23 SECONDS (22-32) Coagulation Comments D-Dimer 7.91 MG/L FEU (0-0.50) H D-Dimer Comment Plan Plan 89-year-old male with past medical history of congestive heart failure, COPD, chronic hypoxemic respiratory failure on 2-3 L oxygen at home intermittently, AFib status post Watchman procedure, anemia, GI bleed is admitted in the hospital for evaluation and management of acute on chronic hypoxemic respiratory failure secondary to acute CHF exacerbation with reduced ejection fraction, bilateral pleural effusion and COPD exacerbation. GI bleed was ruled out. Patient will need pigtail for loculated pleural effusion Acute exacerbation of congestive heart failure with reduced ejection fraction Bilateral pleural effusion-transudative Repeat echocardiography from this admission shows the patient's left ventricular ejection fraction of 40% and right ventricular systolic pressure 58 mmHg. The patient has significantly elevated proBNP [place] [id number]. Chest x-ray shows increased pulmonary vascular congestion with a bilateral pleural effusions. The patient underwent thoracentesis of the right side yesterday and 750 cc of fluid was drained. Lights criteria shows serum pleural fluid LDH/ serum LDH of 0.3, pleural protein/serum protein 0.3. The pleural fluid is transudative secondary to underlying congestive heart failure. Repeat CT chest shows moderate hydropneumothorax on the right, and mild pleural effusion on left Pulmonology was consulted. Recommended pigtail placement for loculated effusion on the right Continue IV Lasix 40 mg b.i.d. Continue Strict input and output monitoring. Fluid restriction to 1.5 L recommended. But will hold during bowel prep Continue Jardiance 10 mg p.o. daily and Coreg 3.125 mg b.i.d.. 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 Per Dr. Fajardo patient can follow up at the clinic post discharge. Acute on chronic hypoxemic respiratory failure, resolved Community-acquired pneumonia covering Gram-positive and Gram-negative bacteria COPD exacerbation, improving Multiple pulmonary nodules-suspected lung malignancy PE ruled out The patient's oxygen requirement has a improved. Today's on 1 L oxygen via nasal cannula. His wheezing has improved significantly. Continue IV ceftriaxone, day 5 Completed azithromycin Continue DuoNeb nebulizations q.4 p.r.n. Continue Solu-Medrol to 40 mg IV daily Incentive spirometry and flutter encouraged Rest as above Persistent Atrial Fibrillation, rate controlled Status post Watchman procedure Not on any anticoagulation at home. Currently rate controlled. Continue Coreg 3.125 mg p.o. b.i.d. Continue telemetry monitoring. Obstructive sleep apnea on CPAP Suspected pulmonary hypertension RVSP is elevated at 50 mmHg on previous echo Continue CPAP at night. 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 Dr Vicente consulted. Recommended renal ultrasound and further laboratory tests. Okay to continue lisinopril per Dr. Vicente IV Lasix as above Continue recommendations per Nephrology Hyperkalemia (Potassium 5.5), resolved Repeat potassium is 4.3 Monitor telemetry Likely related to CKD, medications (losartan), and possibly acidosis. Placed on a low-potassium diet. Monitor potassium levels closely. [facility] Anemia of chronic disease History of recurrent GI bleeds History of gastric angiectasias Hematochezia, resolved The patient's H&H had dropped to 7.0 and 21.9 yesterday. Hb is 8.7 today He reports episodes of intermittent hematochezia since the past few months. Transfuse 1 unit of PRBC. Continue H&H monitoring. EGD showed no signs of bleeding Colonoscopy showed diverticulosis with angiodysplasias, but no active bleeding Continue 40mg IV Protonix daily Continue iron supplements Chronic Hyponatremia Sodium is stable Continue to monitor the patient's electrolytes daily. Diabetes Mellitus Type 2 with Hyperglycemia likely secondary to steroids HbA1c is 6.9 Monitor blood glucose closely. Goal 140-180 Increased Lantus insulin to 25 units daily Continue lispro 3 units meals Continue high dose insulin protocol Moderate protein calorie malnutrition Ensure enlive t.i.d. Thyroid nodule Confirmed on thyroid ultrasound TSH and T4 from December of this year were unremarkable Patient will need further outpatient workup Code Status: Full code DVT Prophylaxis: Heparin subQ Analgesia/Sedation: Tylenol Lines/Tubes: PIV Gi Prophylaxis: Protonix Nutrition: Carb controlled diet in the view of poorly controlled diabetes, low potassium diet PT: Yes Prognosis: Guarded Disposition: Continue medical management. Continue recommendations per Nephrology and pulmonology Patient has been discussed in detail with senior resident (PGY-3), as well as attending physician, Dr. Arevalo. Tristin Smith MD Internal Medicine Resident PGY-2 Date of Service: Mar 31, 2025 Billing Provider: BRENDON AREVALO MD, LEONARDO LUIS Mar 31, 2025 18:35
[2025-04-01] VITALS (13 sets, daily range): BP systolic 111–146; BP diastolic 43–75; PULSE 52–78; RESP 16–24; TEMP 97.3–98.3; O2SAT 96–100
[2025-04-01] MEDS: DEXTROSE 15 GM of carb/4 tabs (each vial/BOTTLE has 4 tablets) PO PRN (07:24)
[2025-04-01] MEDS: HYDROcodone/acetaminophen 5mg/325mg tablet PO PRN (07:41)
--- NOTE | 2025-04-01 08:58 | PROGRESS NOTE ---
Progress Note Dictate Providers to CC ~ Central Line/PICC still needed: No Mcfadden Indications Met/Not Met: F/C Indications Not Met Antibiotic Ordered?: N/A Subjective Subjective The patient had his CT chest repeated yesterday and consulted from Pulmonary. He has hydropneumothorax and is going to get pigtail cath by IR. had thyroid US yesterday. ? FNAC can be arranged with here. He is available today. Meanwhile, he is hypoglycemic and is not on any sulfonylureas. Primary service looking into this. Objective Vitals Vital Signs Date Time Temp Pulse Resp B/P (MAP) Pulse Ox O2 Delivery O2 Flow Rate FiO2 04/01/25 07:45 18 99 Bi-pap/CPAP 1.0 24 04/01/25 07:38 52 04/01/25 06:00 97.3 123/52 (75) Lab Results: 03/31/25 0500 03/31/25 0500 Objective Vital Signs: As above General: Normal body habitus, no acute distress. sleeping with ciera CPAP Skin: No rashes, lumps, ulcers, blisters, purpura or petechiae HEENT: Anicteric sclera, MICA Neck: Supple and nontender without enlargement of the thyroid, or lymphadenopathy. Chest: few crackles mostly right sided. recent thoracentesis Heart: Regular. No jugular venous distention, S1 and S2 heard , no gallop Abdomen: Soft and non tender no organomegaly,BS+ Extremities: No pedal edema right AKA Neuro: Nonfocal. Coagulation Studies Laboratory Tests Test 03/26/25 14:41 03/27/25 12:25 Prothrombin Time 11.3 SECONDS (9.0-12.0) INR International Normalized Ratio 1.1 INR Activated Partial Thromboplast Time 23 SECONDS (22-32) Coagulation Comments D-Dimer 7.91 MG/L FEU (0-0.50) H D-Dimer Comment Advance Care Planning Advanced Care plannin - 30 Minutes Problem\Assessment\Plan Problems/Diagnosis: (1) Acute kidney injury superimposed on CKD Assessment & Plan: fluid overloaded on presentation with right sided pleural effusion requiring thoracentesis. follow up CXR last night showed persistent pleural effusions and nodules. from pulmonary consult recomended pigtail. salt restriction to 2 g per day. after load reducing agents as tolerated. high risk for silent ischemic heart disease and needs sue scan either as inpatient or as outpatient. needs to follow up with nephrology as outpatient as well periodically . At this time, he has had good negative fluid balance and will continue with diuretics. creatinine remains stable. will do the work up to rule out serological disorders. high likelihood of Dm nephropathy. He has lost his right aka with PAD. I have arranged for him to see us in [facility] office in a month after he gets out of here. No emergent need for renal replacement therapy. Avoid NSAIDs thoroughly. Avoid contrast iv. use dilaudid for pain control and avoid morphine. (2) Diabetes mellitus Assessment & Plan: as above. need hbA1C to be controlled. consider SGLt2i (3) Anemia Assessment & Plan: iron deficiency noted. started Venofer. stop PO ferrous sulfate. (4) Afib Assessment & Plan: stable. CHEMA SANTA MD Apr 01, 2025 08:58
--- NOTE | 2025-04-01 09:54 | PROGRESS NOTE- Residence ---
Progress Note - Resident Providers to CC Resident Creating Document: CORNELIO HUGGINS RES ~ Antibiotic Timeout Antibiotic Ordered?: Yes Subjective Patient was seen and examined at bedside. He denies any new GI symptoms including epigastric pain, hematemesis, melena or hematochezia. He is going to get a pigtail for hydropneumothorax Objective Vital Signs Date Time Temp Pulse Resp B/P (MAP) Pulse Ox O2 Delivery O2 Flow Rate FiO2 04/01/25 07:45 18 99 Bi-pap/CPAP 1.0 24 04/01/25 07:38 52 04/01/25 06:00 97.3 123/52 (75) Result Diagram: 03/31/25 0500 03/31/25 0500 General: Alert, awake, oriented, in no acute distress HEENT: PERRLA, no icterus, pallor, lymphadenopathy, carotid bruit Respiratory system: Diminished air movement bilaterally, bibasilar crackles ,no wheezing auscultation CVS: Irregularly irregular heart rate, S1-S2 heard, no murmurs/rubs/gallop GI: Soft, normal bowel movements, no tenderness to palpation, no guarding or rebound, organomegaly Extremities: Right lower extremity BKA, trace pitting edema in the left lower extremity Skin: Warm and dry Coagulation Studies Laboratory Tests Test 03/26/25 14:41 03/27/25 12:25 Prothrombin Time 11.3 SECONDS (9.0-12.0) INR International Normalized Ratio 1.1 INR Activated Partial Thromboplast Time 23 SECONDS (22-32) Coagulation Comments D-Dimer 7.91 MG/L FEU (0-0.50) H D-Dimer Comment Plan Plan Assessment/plan 89-year-old male with past medical history of congestive heart failure, COPD, AFib status post Watchman procedure, anemia, consulted was requested in view of lower GI bleeding. Colonoscopy showed multiple colonic angiectasis, treated with argon plasma coagulation. Patient has been stable since admission. A new colonoscopy will be arranged outpatient for further characterization. Lower GI bleeding 2/2 colonic angiodysplasia - required 1 unit of PRBC but H&H has been stable since admission. Hb was 8.6 yesterday - colonoscopy showed moderate diverticulosis in the sigmoid colon and multiple nonbleeding angioectasias treated with argon plasma coagulation. - follow-up outpatient in three weeks - colonoscopy will be arranged in the future for further ablation of AVMs - continue regular diet - no further GI intervention at this moment Acute on chronic HFpEF Acute on chronic hypoxemic respiratory failure, resolved Community-acquired pneumonia COPD exacerbation Persistent AFib s/p Watchman procedure SUSU/ Acute on CKD / Hyperkalemia / hyponatremia - management per primary team Patient was seen, examined and discussed with the attending physician Dr. Valenzuela Date of Service: Apr 01, 2025 Billing Provider: ARMIN SILVER MD, LUCAS, RES Apr 01, 2025 09:54
[2025-04-01 10:32] LABS: MEAN PLATELET VOLUME 7.2 FL (7.4-10.4); RED CELL DISTRIBUTION WIDTH 18.4 % (11.5-14.5)
[2025-04-01 10:50] LABS: CREATININE 2.27 MG/DL (0.60-1.10); PHOSPHORUS 4.0 MG/DL (2.3-4.5); TOTAL CARBON DIOXIDE 27.9 MMOL/L (24-32); eCRCL 23 ML/MIN; eGFR 27 ML/MIN
[2025-04-01 11:16] LABS: HBSAG SCREEN Negative (Negative)
[2025-04-01 13:13] LABS: ANTISTREPTOLYSIN O AB 84.8 IU/mL (0.0-200.0); COMPLEMENT C3, SERUM 100 mg/dL (82-167); COMPLEMENT C4, SERUM 17 mg/dL (12-38)
[2025-04-01 15:24] LABS: ANTINUCLEAR ANTIBODIES Negative (Negative)
--- NOTE | 2025-04-01 15:59 | PROGRESS NOTE- Residence ---
Progress Note - Resident Providers to CC Resident Creating Document: TRISTIN RODRIGUEZ CC: BRENDON AREVALO MD ~ Antibiotic Timeout Antibiotic Ordered?: Yes Subjective Patient was seen and examined at bedside. He was resting comfortably using his CPAP. He denies any significant symptoms including shortness of breaths, fever, chills, chest pain or palpitations. Objective Vital Signs Date Time Temp Pulse Resp B/P (MAP) Pulse Ox O2 Delivery O2 Flow Rate FiO2 04/01/25 07:45 18 99 Bi-pap/CPAP 1.0 24 04/01/25 07:38 52 04/01/25 06:00 97.3 123/52 (75) Result Diagram: 04/01/25 1010 04/01/25 1010 General: Moderately built elderly male, Alert, awake, oriented, in no distress HEENT: PERRLA, no icterus, pallor, lymphadenopathy, carotid bruit Respiratory system: improved breath sounds on the right, mildly decreased breath sounds on the left,no wheezing, mild crackles on auscultation CVS: Irregularly irregular heart rate, S1-S2 heard, no murmurs/rubs/gallop GI: Soft, no organomegaly, no guarding/rigidity, bowel sounds present Neuro: No focal neurological deficits present. Cranial examination is normal, motor and sensory nerve examination is normal Extremities: Right lower extremity BKA, no lower extremity edema Musculoskeletal: Right lower extremity BKA, no deformities Skin: Warm and dry Psych: Normal mood and affect Coagulation Studies Laboratory Tests Test 03/26/25 14:41 03/27/25 12:25 Prothrombin Time 11.3 SECONDS (9.0-12.0) INR International Normalized Ratio 1.1 INR Activated Partial Thromboplast Time 23 SECONDS (22-32) Coagulation Comments D-Dimer 7.91 MG/L FEU (0-0.50) H D-Dimer Comment Plan Plan Assessment: 89-year-old male with past medical history of congestive heart failure, COPD, chronic hypoxemic respiratory failure on 2-3 L oxygen at home intermittently, AFib status post Watchman procedure, anemia, GI bleed, who was admitted in the hospital for evaluation and management of acute on chronic hypoxemic respiratory failure secondary to acute CHF exacerbation with reduced ejection fraction, bilateral pleural effusion and COPD exacerbation. Due to suspicions of GI bleed EGD and colonoscopy were performed without signs of acute bleeding Patient initially underwent thoracentesis were 750 cc of fluid were removed from right hemothorax. Lights criteria showed serum pleural fluid LDH/serum LDH of 0.3, pleural protein/serum protein 0.3. Repeat CT chest showed right hydropneumothorax, therefore, right Pigtail chest tube placed today by IR without complications Patient has remained otherwise hemodynamically stable Today's labs were reviewed Plan: Acute exacerbation of congestive heart failure with reduced ejection fraction, improved Bilateral pleural effusion-transudative secondary to above Repeat echocardiography from this admission shows the patient's left ventricular ejection fraction of 40% and right ventricular systolic pressure 58 mmHg. The pleural fluid is transudative secondary to underlying congestive heart failure. Repeat CT chest shows moderate hydropneumothorax on the right, and mild pleural effusion on left Pulmonology was consulted. Recommended pigtail placement for loculated effusion on the right Continue IV Lasix 40 mg b.i.d. Continue Strict input and output monitoring. Fluid restriction to 1.5 L recommended. But will hold during bowel prep Continue Jardiance 10 mg p.o. Continue Coreg 3.125 mg b.i.d.. Continue lisinopril 5 mg daily Continue to hold spironolactone The patient's speaking unit assembler Dr. 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 Per Dr. Fajardo patient can follow up at the clinic post discharge. Acute on chronic hypoxemic respiratory failure, resolved Sepsis 2/2 Community-acquired pneumonia covering Gram-positive and Gram-negative bacteria - POA, resolving COPD exacerbation, improving Multiple pulmonary nodules-suspected lung malignancy PE ruled out The patient's oxygen requirement has a improved. Today's on 1 L oxygen via nasal cannula. His wheezing has improved significantly. Continue IV ceftriaxone, day 6 Completed azithromycin Continue DuoNeb nebulizations q.4 p.r.n. Will transition to prednisone 40 mg p.o. daily Incentive spirometry and flutter encouraged Rest as above Persistent Atrial Fibrillation, rate controlled Status post Watchman procedure Not on any anticoagulation at home Currently rate controlled. Continue Coreg 3.125 mg p.o. b.i.d. Continue telemetry monitoring. Obstructive sleep apnea on CPAP Suspected pulmonary hypertension RVSP is elevated at 50 mmHg on previous echo Continue CPAP at night. 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 Continue his recommendations Anemia of chronic disease History of recurrent GI bleeds History of gastric angiectasias Hematochezia, resolved Hemoglobin has remained stable He reports episodes of intermittent hematochezia since the past few months Transfused 1 unit of PRBC. Continue H&H monitoring. EGD showed no signs of acute bleeding Colonoscopy showed diverticulosis with angiodysplasias, but no active bleeding Continue 40mg IV Protonix daily Continue iron supplements Diabetes Mellitus Type 2 with Hyperglycemia likely secondary to steroids HbA1c is 6.9 Monitor blood glucose closely. Goal 140-180 Increased Lantus insulin to 25 units daily Continue lispro 3 units meals Continue high dose insulin protocol Moderate protein calorie malnutrition Ensure enlive t.i.d. Thyroid nodule Thyroid ultrasound showed Isoechoic nodule in the right lower thyroid measures 2.3 cm, TR 3. Isoechoic nodule in the left lower thyroid measures 1.5 cm, TR 3. TSH and T4 from December of this year were unremarkable Patient will need further outpatient follow up Code Status: Full code DVT Prophylaxis: Heparin subQ Analgesia/Sedation: Tylenol Lines/Tubes: PIV Gi Prophylaxis: Protonix Nutrition: Carb controlled diet in the view of poorly controlled diabetes, low potassium diet PT: Yes Prognosis: Guarded Disposition: Continue medical management. Continue recommendations per Nephrology and pulmonology Patient has been discussed in detail with senior resident (PGY-3), as well as attending physician, Dr. Arevalo. Tristin Smith MD Internal Medicine Resident PGY-2 Date of Service: Apr 01, 2025 Billing Provider: BRENDON AREVALO MD, LEONARDO LUIS Apr 01, 2025 15:59
--- NOTE | 2025-04-01 16:44 | PROGRESS NOTE ---
Progress Note - Angio Providers to CC ~ Angio Progress Note: After time out and risks benefits alt of R chest tube placement, this was one in CT with 12 Fr Pigtail at base of loculated air fluid level effusion, sample of opaque yellow fluid sent to lab, no immed complications, EBL less than 2cc. Dictated. DOMINGA GANT MD Apr 01, 2025 16:44
--- NOTE | 2025-04-01 19:23 | RADIOLOGY REPORT ---
CT-guided chest tube right side 12 Maldivian Clinical history: Loculated air-fluid level effusion right mid and lower thorax DLP 1933.43 8 mL 1% lidocaine subcutaneous. Procedure start time 1556 hours. ESTIMATED BLOOD LOSS: None Consent was obtained. Risks benefits alternatives were discussed. Patient brought to CT scanner and placed in a left lateral decubitus position A surgical timeout was performed. A loculated right-sided pleural effusion with air-fluid level was defined and localized. Overlying soft tissues are prepped in usual sterile fashion. The soft tissues were anesthetized with 1% lidocaine. Using CT guidance a 5 Maldivian Patient Feedeh catheter was placed in the pleural space. Wire placement was confirmed with imaging. It was exchanged over guidewire for serial dilatation up to 12 Maldivian size after which a 12 Maldivian pigtail catheter was placed. Wire was removed. Catheter was placed to Pleur-evac suction and fixed to skin with adhesive device. He tolerated procedure well. A small sample of fluid which was opaque yellow-lilia in color was sent to laboratory for analysis. FINDINGS: Right-sided 12 Maldivian pigtail chest tube seen within posterior inferior aspect of a loculated right pleural effusion containing air-fluid level as well. IMPRESSION: Right-sided tube 12 Maldivian placed in loculated right pleural effusion containing air-fluid level.
[2025-04-01] MEDS: insulin glargine (Lantus) pen - multi-dose SQ SCH (20:37)
[2025-04-01] MEDS ORDERED: insulin glargine (Lantus) pen - multi-dose SQ SCH (21:00)
[2025-04-02] VITALS (11 sets, daily range): BP systolic 110–142; BP diastolic 39–67; PULSE 54–78; RESP 12–21; TEMP 97–98.4; O2SAT 93–98
[2025-04-02 05:28] LABS: HEPATITIS C VIRUS ANTIBODY Non Reactive (Non Reactive)
[2025-04-02 07:56] LABS: MEAN PLATELET VOLUME 7.4 FL (7.4-10.4); RED CELL DISTRIBUTION WIDTH 18.4 % (11.5-14.5)
--- NOTE | 2025-04-02 08:24 | RADIOLOGY REPORT ---
CHEST RADIOGRAPH INDICATION: pleural effusion TECHNIQUE: Multidetector spiral CT of the chest was performed from the lung apices to the upper abdomen. Axial, coronal and sagittal multiplanar reformats were performed. Radiation Dose : 1. Chest: CTDI volume is 17.59 mGy. Dose-length product is 682.97 mGy*cm The dose indicators for CT are the volume Computed Tomography (CT) Dose Index (CTDIvol) and the Dose Length Product (DLP), and are measured in units of mGy and mGy-cm, respectively. These indicators are not patient dose, but values generated from the CT scanner acquisition factors. The report includes radiation exposure data for exposures received during this examination. COMPARISON: DI CHEST,SINGLE VIEW on DOS: 03/30/25, DI CHEST,SINGLE VIEW on DOS: 03/28/25, DI CHEST,SINGLE VIEW on DOS: 03/26/25, DI CHEST,SINGLE VIEW on DOS: 01/16/25, DI CHEST,SINGLE VIEW on DOS: 12/30/24 FINDINGS: Lines and Tubes: Status post right chest tube placement Lungs: Right basilar opacity Pleura: Decreased right pleural effusion No pneumothorax. Cardiomediastinal contours: Cardiomegaly Bones: No acute osseous abnormality. IMPRESSION: Decreased right pleural effusion status post right chest tube placement.
[2025-04-02 08:39] LABS: CREATININE 2.00 MG/DL (0.60-1.10); PHOSPHORUS 3.0 MG/DL (2.3-4.5); TOTAL CARBON DIOXIDE 30.0 MMOL/L (24-32); eCRCL 26 ML/MIN; eGFR 32 ML/MIN
--- NOTE | 2025-04-02 08:59 | PROGRESS NOTE ---
Progress Note Dictate Providers to CC ~ Central Line/PICC still needed: No Mcfadden Indications Met/Not Met: F/C Indications Not Met Antibiotic Ordered?: N/A Subjective Subjective The patient is sleeping. chest tube in place. Objective Vitals Vital Signs Date Time Temp Pulse Resp B/P (MAP) Pulse Ox O2 Delivery O2 Flow Rate FiO2 04/02/25 18:30 74 04/02/25 17:13 20 Room Air 0.0 21 04/02/25 17:05 96 04/02/25 15:00 97.4 125/47 (73) Lab Results: 04/02/25 0628 04/02/25 0628 Objective Vital Signs: As above General: Normal body habitus, no acute distress. sleeping with ciera CPAP Skin: No rashes, lumps, ulcers, blisters, purpura or petechiae HEENT: Anicteric sclera, MICA Neck: Supple and nontender without enlargement of the thyroid, or lymphadenopathy. Chest: few crackles mostly right sided. recent thoracentesis Heart: Regular. No jugular venous distention, S1 and S2 heard , no gallop Abdomen: Soft and non tender no organomegaly,BS+ Extremities: No pedal edema right AKA Neuro: Nonfocal. Coagulation Studies Laboratory Tests Test 03/26/25 14:41 03/27/25 12:25 Prothrombin Time 11.3 SECONDS (9.0-12.0) INR International Normalized Ratio 1.1 INR Activated Partial Thromboplast Time 23 SECONDS (22-32) Coagulation Comments D-Dimer 7.91 MG/L FEU (0-0.50) H D-Dimer Comment Advance Care Planning Advanced Care plannin - 30 Minutes Problem\Assessment\Plan Problems/Diagnosis: (1) Acute kidney injury superimposed on CKD Assessment & Plan: now has right chest tube in place. serology is negative so far. has dm nephropathy. fluid restriction to 1.2 liters per day (2) Diabetes mellitus Assessment & Plan: as above. need hbA1C to be controlled. consider SGLt2i (3) Anemia Assessment & Plan: iron deficiency noted. started Venofer. stop PO ferrous sulfate. (4) Afib Assessment & Plan: stable. CHEMA SANTA MD Apr 02, 2025 08:59
--- NOTE | 2025-04-02 11:33 | PROGRESS NOTE- Residence ---
Progress Note - Resident Providers to CC Resident Creating Document: CORNELIO HUGGINS RES ~ Antibiotic Timeout Antibiotic Ordered?: No Subjective Patient seen and examined at bedside. Chest tube has been placed yesterday for right hydropneumothorax. No new GI symptoms reported. Objective Vital Signs Date Time Temp Pulse Resp B/P (MAP) Pulse Ox O2 Delivery O2 Flow Rate FiO2 04/02/25 08:00 20 96 Room Air 04/02/25 07:24 70 04/02/25 06:00 97.4 142/67 (92) 04/01/25 16:14 2.0 04/01/25 07:45 24 Result Diagram: 04/02/2562704/02/25627 General: Alert, awake, oriented, in no acute distress HEENT: PERRLA, no icterus, pallor, lymphadenopathy, carotid bruit Respiratory system: Diminished air movement bilaterally, bibasilar crackles ,no wheezing auscultation CVS: Irregularly irregular heart rate, S1-S2 heard, no murmurs/rubs/gallop GI: Soft, normal bowel movements, no tenderness to palpation, no guarding or rebound, organomegaly Extremities: Right lower extremity BKA, trace pitting edema in the left lower extremity Skin: Warm and dry Coagulation Studies Laboratory Tests Test 03/26/25 14:41 03/27/25 12:25 Prothrombin Time 11.3 SECONDS (9.0-12.0) INR International Normalized Ratio 1.1 INR Activated Partial Thromboplast Time 23 SECONDS (22-32) Coagulation Comments D-Dimer 7.91 MG/L FEU (0-0.50) H D-Dimer Comment Plan Plan Assessment/plan 89-year-old male with past medical history of congestive heart failure, COPD, AFib status post Watchman procedure, anemia, consulted was requested in view of lower GI bleeding. Colonoscopy showed multiple colonic angiectasis, treated with argon plasma coagulation. Patient has been stable since admission. A new colonoscopy will be arranged outpatient for further characterization. Lower GI bleeding 2/2 colonic angiodysplasia - required 1 unit of PRBC but H&H has been stable since admission. Hb was 8.6 yesterday - colonoscopy showed moderate diverticulosis in the sigmoid colon and multiple nonbleeding angioectasias treated with argon plasma coagulation. - follow-up outpatient 04/13/25 at 2:45 - continue regular diet - no further GI intervention at this moment Acute on chronic HFpEF Acute on chronic hypoxemic respiratory failure, resolved Community-acquired pneumonia COPD exacerbation Persistent AFib s/p Watchman procedure SUSU/ Acute on CKD / Hyperkalemia / hyponatremia - management per primary team Patient was seen, examined and discussed with the attending physician Dr. Valenzuela Date of Service: Apr 02, 2025 Billing Provider: ARMIN SILVER MD, LUCAS, RES Apr 02, 2025 11:33
--- NOTE | 2025-04-02 15:42 | ELECTROCARDIOGRAPH REPORT ---
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 WINSTON Torres Measurements Intervals [place] Rate: 81 P: 0 FL: 0 QRS: -5 QRSD: 83 T: 193 QT: 330 QTc: 383 Interpretive Statements Atrial fibrillation Probable anterior infarct, age indeterminate Electronically Signed On 03-30-2025 9:35:[address] WINSTON Torres Please click the below link to view image of tracing.
[2025-04-02] MEDS: ipratropium/albuterol 3ml nebule NEB PRN (17:03)
--- NOTE | 2025-04-02 19:43 | PROGRESS NOTE- Residence ---
Progress Note - Resident Providers to CC Resident Creating Document: TRISTIN RODRIGUEZ CC: BRENDON AREVALO MD ~ Antibiotic Timeout Antibiotic Ordered?: Yes Subjective Patient seen and examined at bedside. Patient underwent chest tube placement yesterday which he tolerated well. He is not very happy with the idea of going to LTAC, but he understands reasons. He otherwise denies significant chest pain, shortness of breath, palpitations or any other subjective symptoms. Objective Vital Signs Date Time Temp Pulse Resp B/P (MAP) Pulse Ox O2 Delivery O2 Flow Rate FiO2 04/02/25 17:13 68 20 Room Air 0.0 21 04/02/25 17:05 96 04/02/25 15:00 97.4 125/47 (73) Result Diagram: 04/02/2562704/02/25627 General: Moderately built elderly male, Alert, awake, oriented, in no distress HEENT: PERRLA, no icterus, pallor, lymphadenopathy, carotid bruit Respiratory system: improved breath sounds on the right, mildly decreased breath sounds on the left,no wheezing, mild crackles on auscultation. Chest tube in place CVS: Irregularly irregular heart rate, S1-S2 heard, no murmurs/rubs/gallop GI: Soft, no organomegaly, no guarding/rigidity, bowel sounds present Neuro: No focal neurological deficits present. Cranial examination is normal, motor and sensory nerve examination is normal Extremities: Right lower extremity BKA, no lower extremity edema Musculoskeletal: Right lower extremity BKA, no deformities Skin: Warm and dry Psych: Normal mood and affect Coagulation Studies Laboratory Tests Test 03/26/25 14:41 03/27/25 12:25 Prothrombin Time 11.3 SECONDS (9.0-12.0) INR International Normalized Ratio 1.1 INR Activated Partial Thromboplast Time 23 SECONDS (22-32) Coagulation Comments D-Dimer 7.91 MG/L FEU (0-0.50) H D-Dimer Comment Plan Plan Assessment: 89-year-old male with past medical history of congestive heart failure, COPD, chronic hypoxemic respiratory failure on 2-3 L oxygen at home intermittently, AFib status post Watchman procedure, anemia, GI bleed, who was admitted in the hospital for evaluation and management of acute on chronic hypoxemic respiratory failure secondary to acute CHF exacerbation with reduced ejection fraction, bilateral pleural effusion and COPD exacerbation. Due to suspicions of GI bleed EGD and colonoscopy were performed without signs of acute bleeding Patient initially underwent thoracentesis were 750 cc of fluid were removed from right hemothorax. Lights criteria showed serum pleural fluid LDH/serum LDH of 0.3, pleural protein/serum protein 0.3. Repeat CT chest showed right hydropneumothorax, therefore, right Pigtail chest tube placed by IR without complications Follow up chest x-ray shows improvement of pleural effusion Patient has remained otherwise hemodynamically stable Today's labs were reviewed Plan: Acute exacerbation of congestive heart failure with reduced ejection fraction, improved Bilateral pleural effusion-transudative secondary to above Right Hydropneumothorax, not POA Repeat echocardiography from this admission shows the patient's left ventricular ejection fraction of 40% and right ventricular systolic pressure 58 mmHg. The pleural fluid is transudative secondary to underlying congestive heart failure. Repeat CT chest shows moderate hydropneumothorax on the right, and mild pleural effusion on left Pulmonology was consulted. Recommended pigtail placement for loculated effusion on the right Continue IV Lasix 40 mg b.i.d. Continue Strict input and output monitoring. Fluid restriction to 1.5 L recommended. But will hold during bowel prep Continue Jardiance 10 mg p.o. Continue Coreg 3.125 mg b.i.d.. 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 Per Dr. Fajardo patient can follow up at the clinic post discharge. Acute on chronic hypoxemic respiratory failure, resolved Sepsis 2/2 Community-acquired pneumonia covering Gram-positive and Gram-negative bacteria - POA, resolving COPD exacerbation, improving Multiple pulmonary nodules-suspected lung malignancy PE ruled out The patient's oxygen requirement has a improved. Today's on 1 L oxygen via nasal cannula. His wheezing has improved significantly. Continue IV ceftriaxone, day 6 Completed azithromycin Continue DuoNeb nebulizations q.4 p.r.n. Continue prednisone 40 mg p.o. daily Incentive spirometry and flutter encouraged Rest as above Persistent Atrial Fibrillation, rate controlled Status post Watchman procedure Not on any anticoagulation at home Currently rate controlled. Continue Coreg 3.125 mg p.o. b.i.d. Continue telemetry monitoring. Obstructive sleep apnea on CPAP Suspected pulmonary hypertension RVSP is elevated at 50 mmHg on previous echo Continue CPAP at night. 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 Continue his recommendations Anemia of chronic disease History of recurrent GI bleeds History of gastric angiectasias Hematochezia, resolved Hemoglobin has remained stable He reports episodes of intermittent hematochezia since the past few months Transfused 1 unit of PRBC. Continue H&H monitoring. EGD showed no signs of acute bleeding Colonoscopy showed diverticulosis with angiodysplasias, but no active bleeding Continue 40mg IV Protonix daily Continue iron supplements Diabetes Mellitus Type 2 with Hyperglycemia likely secondary to steroids HbA1c is 6.9 Monitor blood glucose closely. Goal 140-180 Increased Lantus insulin to 25 units daily Continue lispro 3 units meals Continue high dose insulin protocol Moderate protein calorie malnutrition Ensure enlive t.i.d. Thyroid nodule Thyroid ultrasound showed Isoechoic nodule in the right lower thyroid measures 2.3 cm, TR 3. Isoechoic nodule in the left lower thyroid measures 1.5 cm, TR 3. TSH and T4 from December of this year were unremarkable Patient will need further outpatient follow up Code Status: Full code DVT Prophylaxis: Heparin subQ Analgesia/Sedation: Tylenol Lines/Tubes: PIV Gi Prophylaxis: Protonix Nutrition: Carb controlled diet in the view of poorly controlled diabetes, low potassium diet PT: Yes Prognosis: Guarded Disposition: Continue medical management. Continue recommendations per Nephrology and pulmonology Patient has been discussed in detail with senior resident (PGY-3), as well as attending physician, Dr. Arevalo. Tristin Smith MD Internal Medicine Resident PGY-2 Date of Service: Apr 02, 2025 Billing Provider: BRENDON AREVALO MD, LEONARDO LUIS Apr 02, 2025 19:43
[2025-04-03] VITALS (12 sets, daily range): BP systolic 93–133; BP diastolic 36–66; PULSE 56–87; RESP 14–25; TEMP 97.3–98; O2SAT 96–99
[2025-04-03 06:53] LABS: MEAN PLATELET VOLUME 7.4 FL (7.4-10.4); RED CELL DISTRIBUTION WIDTH 18.6 % (11.5-14.5)
[2025-04-03 07:17] LABS: CREATININE 2.25 MG/DL (0.60-1.10); PHOSPHORUS 3.4 MG/DL (2.3-4.5); TOTAL CARBON DIOXIDE 29.9 MMOL/L (24-32); eCRCL 23 ML/MIN; eGFR 28 ML/MIN
[2025-04-03 07:18] LABS: A/G RATIO 0.7 (0.7-1.7); BETA GLOBULIN 0.8 g/dL (0.7-1.3); GLOBULIN, TOTAL 3.1 g/dL (2.2-3.9); M-SPIKE 0.9 g/dL (Not Observed)
[2025-04-03 07:46] LABS: ELLIPTOCYTES FEW; PLATELET ESTIMATE NORMAL
--- NOTE | 2025-04-03 09:45 | RADIOLOGY REPORT ---
CHEST RADIOGRAPH INDICATION: Hydropneumothorax TECHNIQUE: Multidetector spiral CT of the chest was performed from the lung apices to the upper abdomen. Axial, coronal and sagittal multiplanar reformats were performed. Radiation Dose : 1. Chest: CTDI volume is 17.59 mGy. Dose-length product is 682.97 mGy*cm The dose indicators for CT are the volume Computed Tomography (CT) Dose Index (CTDIvol) and the Dose Length Product (DLP), and are measured in units of mGy and mGy-cm, respectively. These indicators are not patient dose, but values generated from the CT scanner acquisition factors. The report includes radiation exposure data for exposures received during this examination. COMPARISON: DI CHEST,SINGLE VIEW on DOS: 04/02/25, DI CHEST,SINGLE VIEW on DOS: 03/30/25, DI CHEST,SINGLE VIEW on DOS: 03/28/25, DI CHEST,SINGLE VIEW on DOS: 03/26/25, DI CHEST,SINGLE VIEW on DOS: 01/16/25, DI CHEST,SINGLE VIEW on DOS: 04/02/25 FINDINGS: Lines and Tubes: Stable chest tube Lungs: Right basilar opacity Pleura: Decreased right pleural effusion No pneumothorax. Cardiomediastinal contours: Cardiomegaly Bones: No acute osseous abnormality. IMPRESSION: No interval change.
--- NOTE | 2025-04-03 11:08 | PROGRESS NOTE- Residence ---
Progress Note - Resident Providers to CC Resident Creating Document: CORNELIO HUGGINS RES ~ Antibiotic Timeout Antibiotic Ordered?: No Subjective Patient seen and examined at bedside. He complains of pain in the insertion site of the chest tube. Patient denies any new chest symptoms and has a scheduled follow-up visit on April 13 at 2:45 p.m.. He is probably going to be discharged to LTAC. Objective Vital Signs Date Time Temp Pulse Resp B/P (MAP) Pulse Ox O2 Delivery O2 Flow Rate FiO2 04/03/25 10:00 70 04/03/25 07:53 16 98 Room Air* 0 21 04/03/25 02:00 98.0 124/60 (81) Result Diagram: 04/03/25 0610 04/03/25 0610 General: Alert, awake, oriented, in no acute distress HEENT: PERRLA, no icterus, pallor, lymphadenopathy, carotid bruit Respiratory system: Diminished air movement bilaterally, right-sided crackles, chest tube in place with serosanguineous discharge. CVS: Irregularly irregular heart rate, S1-S2 heard, no murmurs/rubs/gallop GI: Soft, normal bowel movements, no tenderness to palpation, no guarding or rebound, organomegaly Extremities: Right lower extremity BKA, trace pitting edema in the left lower extremity Skin: Warm and dry Coagulation Studies Laboratory Tests Test 03/26/25 14:41 03/27/25 12:25 Prothrombin Time 11.3 SECONDS (9.0-12.0) INR International Normalized Ratio 1.1 INR Activated Partial Thromboplast Time 23 SECONDS (22-32) Coagulation Comments D-Dimer 7.91 MG/L FEU (0-0.50) H D-Dimer Comment Plan Plan Assessment/plan 89-year-old male with past medical history of congestive heart failure, COPD, AFib status post Watchman procedure, anemia, consulted was requested in view of lower GI bleeding. Colonoscopy showed multiple colonic angiectasis, treated with argon plasma coagulation. Patient has been stable since admission. A new colonoscopy will be arranged outpatient for further characterization. Lower GI bleeding 2/2 colonic angiodysplasia - required 1 unit of PRBC but H&H has been stable since admission. Hb 9.4 tpday - colonoscopy showed moderate diverticulosis in the sigmoid colon and multiple nonbleeding angioectasias treated with argon plasma coagulation. - follow-up outpatient scheduled on 04/13/25 at 2:45 - continue regular diet - no further GI intervention at this moment Acute on chronic HFpEF Acute on chronic hypoxemic respiratory failure, resolved Community-acquired pneumonia COPD exacerbation Persistent AFib s/p Watchman procedure SUSU/ Acute on CKD / Hyperkalemia / hyponatremia - management per primary team Patient was seen, examined and discussed with the attending physician Dr. Valenzuela Date of Service: Apr 03, 2025 Billing Provider: ARMIN SILVER MD, LUCAS, RES Apr 03, 2025 11:08
--- NOTE | 2025-04-03 14:46 | PROGRESS NOTE- Residence ---
Progress Note - Resident Providers to CC Resident Creating Document: TRISTIN RODRIGUEZ CC: BRENDON AREVALO MD ~ Antibiotic Timeout Antibiotic Ordered?: No Subjective Patient seen and examined at bedside. He complains of pain in the insertion site of the chest tube. Patient denies any new chest symptoms and has a scheduled follow-up visit on April 13 at 2:45 p.m.. He is probably going to be discharged to LTAC. Objective Vital Signs Date Time Temp Pulse Resp B/P (MAP) Pulse Ox O2 Delivery O2 Flow Rate FiO2 04/03/25 11:04 33 04/03/25 11:00 97.3 20 119/66 (83) 96 Room Air 04/03/25 07:53 0 21 Result Diagram: 04/03/25 0610 04/03/25 0610 General: Moderately built elderly male, Alert, awake, oriented, in no distress HEENT: PERRLA, no icterus, pallor, lymphadenopathy, carotid bruit Respiratory system: improved breath sounds on the right, mildly decreased breath sounds on the right,no wheezing, mild crackles on auscultation. Chest tube in place CVS: Irregularly irregular heart rate, S1-S2 heard, no murmurs/rubs/gallop GI: Soft, no organomegaly, no guarding/rigidity, bowel sounds present Neuro: No focal neurological deficits present. Cranial examination is normal, motor and sensory nerve examination is normal Extremities: Right lower extremity BKA, no lower extremity edema Musculoskeletal: Right lower extremity BKA, no deformities Skin: Warm and dry Psych: Normal mood and affect Coagulation Studies Laboratory Tests Test 03/26/25 14:41 03/27/25 12:25 Prothrombin Time 11.3 SECONDS (9.0-12.0) INR International Normalized Ratio 1.1 INR Activated Partial Thromboplast Time 23 SECONDS (22-32) Coagulation Comments D-Dimer 7.91 MG/L FEU (0-0.50) H D-Dimer Comment Plan Plan Assessment: 89-year-old male with past medical history of congestive heart failure, COPD, chronic hypoxemic respiratory failure on 2-3 L oxygen at home intermittently, AFib status post Watchman procedure, anemia, GI bleed, who was admitted in the hospital for evaluation and management of acute on chronic hypoxemic respiratory failure secondary to acute CHF exacerbation with reduced ejection fraction, bilateral pleural effusion and COPD exacerbation. Due to suspicions of GI bleed EGD and colonoscopy were performed without signs of acute bleeding Patient initially underwent thoracentesis were 750 cc of fluid were removed from right hemothorax. Lights criteria showed serum pleural fluid LDH/serum LDH of 0.3, pleural protein/serum protein 0.3. Repeat CT chest showed right hydropneumothorax, therefore, right Pigtail chest tube placed by IR without complications Repeat echocardiography from this admission shows the patient's left ventricular ejection fraction of 40% and right ventricular systolic pressure 58 mmHg. Chest tube has drained 300cc today Follow up chest x-ray shows improvement of pleural effusion Patient has remained otherwise hemodynamically stable Today's labs were reviewed Plan: Acute exacerbation of congestive heart failure with reduced ejection fraction, improved Bilateral pleural effusion-transudative secondary to above Right Hydropneumothorax, not POA Pulmonology was consulted. Recommended pigtail placement for loculated effusion on the right Continue IV Lasix 40 mg b.i.d. Continue Strict input and output monitoring. Fluid restriction to 1.5 L recommended. But will hold during bowel prep Continue Jardiance 10 mg p.o. Continue Coreg 3.125 mg b.i.d.. Continue lisinopril 5 mg daily Continue to hold spironolactone Chest tube in place, functioning well The patient's floor layer Dr. 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 Per Dr. Fajardo patient can follow up at the clinic post discharge. Acute on chronic hypoxemic respiratory failure 2/2 CHF/Pleaural effusion, resolved Sepsis 2/2 Community-acquired pneumonia covering Gram-positive and Gram-negative bacteria - POA, resolving COPD exacerbation, improving Multiple pulmonary nodules-suspected lung malignancy PE ruled out The patient's oxygen requirement has a improved. Today's on 1 L oxygen via nasal cannula. His wheezing has improved significantly. Continue IV ceftriaxone, day 6 Completed azithromycin Continue DuoNeb nebulizations q.4 p.r.n. Continue prednisone 40 mg p.o. daily Incentive spirometry and flutter encouraged Dr Hoffmann following. Will consider removing chest tube if <1L in one day Rest as above Persistent Atrial Fibrillation, rate controlled Status post Watchman procedure Not on any anticoagulation at home Currently rate controlled. Continue Coreg 3.125 mg p.o. b.i.d. Continue telemetry monitoring. Obstructive sleep apnea on CPAP Suspected pulmonary hypertension RVSP is elevated at 50 mmHg on previous echo Continue CPAP at night. 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 Continue his recommendations Anemia of chronic disease History of recurrent GI bleeds History of gastric angiectasias Hematochezia, resolved Hemoglobin has remained stable He reports episodes of intermittent hematochezia since the past few months Transfused 1 unit of PRBC. Continue H&H monitoring. EGD showed no signs of acute bleeding Colonoscopy showed diverticulosis with angiodysplasias, but no active bleeding Continue 40mg IV Protonix daily Continue iron supplements Diabetes Mellitus Type 2 with Hyperglycemia likely secondary to steroids HbA1c is 6.9 Monitor blood glucose closely. Goal 140-180 Increased Lantus insulin to 25 units daily Continue lispro 3 units meals Continue high dose insulin protocol Moderate protein calorie malnutrition Ensure enlive t.i.d. Thyroid nodule Thyroid ultrasound showed Isoechoic nodule in the right lower thyroid measures 2.3 cm, TR 3. Isoechoic nodule in the left lower thyroid measures 1.5 cm, TR 3. TSH and T4 from December of this year were unremarkable Patient will need further outpatient follow up Code Status: Full code DVT Prophylaxis: Heparin subQ Analgesia/Sedation: Tylenol Lines/Tubes: PIV Gi Prophylaxis: Protonix Nutrition: Carb controlled diet in the view of poorly controlled diabetes, low potassium diet PT: Yes Prognosis: Guarded Disposition: Continue medical management. Continue recommendations per Nephrology and pulmonology. Transfer to LTAC tomorrow if chest tube still in place Patient has been discussed in detail with senior resident (PGY-3), as well as attending physician, Dr. Arevalo. Tristin Smith MD Internal Medicine Resident PGY-2 Date of Service: Apr 03, 2025 Billing Provider: BRENDON AREVALO MD, LEONARDO LUIS Apr 03, 2025 14:46
[2025-04-03] MEDS: mag hydrox/Alum hydrox/simeth 30ml oral suspension PO PRN (17:43)
--- NOTE | 2025-04-03 18:13 | PROGRESS NOTE- Residence ---
Progress Note - Resident Providers to CC Resident Creating Document: ELIZA FULTON, RES ~ Antibiotic Timeout Antibiotic Ordered?: No Subjective The patient was seen and examined at bedside today. His chest tube output is over 1 L in the last 24 hours. Objective Vital Signs Date Time Temp Pulse Resp B/P (MAP) Pulse Ox O2 Delivery O2 Flow Rate FiO2 04/03/25 15:15 71 14 104/42 (62) 97 Room Air 04/03/25 11:00 97.3 04/03/25 07:53 0 21 Result Diagram: 04/03/25 0610 04/03/25 0610 General: Moderately built elderly male, Alert, awake, oriented, in no distress HEENT: PERRLA, no icterus, pallor, lymphadenopathy, carotid bruit Respiratory system: improved breath sounds on the right, mildly decreased breath sounds on the right,no wheezing, mild crackles on auscultation. Chest tube in place CVS: Irregularly irregular heart rate, S1-S2 heard, no murmurs/rubs/gallop GI: Soft, no organomegaly, no guarding/rigidity, bowel sounds present Neuro: No focal neurological deficits present. Cranial examination is normal, motor and sensory nerve examination is normal Extremities: Right lower extremity BKA, no lower extremity edema Musculoskeletal: Right lower extremity BKA, no deformities Skin: Warm and dry Psych: Normal mood and affect Coagulation Studies Laboratory Tests Test 03/26/25 14:41 03/27/25 12:25 Prothrombin Time 11.3 SECONDS (9.0-12.0) INR International Normalized Ratio 1.1 INR Activated Partial Thromboplast Time 23 SECONDS (22-32) Coagulation Comments D-Dimer 7.91 MG/L FEU (0-0.50) H D-Dimer Comment Plan Plan Right hydropneumothorax CHF exacerbation Patient underwent right pigtail catheter insertion. Chest tube output 1.4 L in the last 24 hours. We will re-evaluate tomorrow and if chest tube output is minimal, we will remove the chest tube. Numerous bilateral pulmonary nodules Nicotine use disorder COPD Outpatient follow up. Eliza Fulton MD Internal Medicine Resident, PGY-2 The patient was seen, examined and discussed with the attending physician, Dr. Hoffmann. Date of Service: Apr 03, 2025 Billing Provider: MUSFLOR PAGE MD, SOWMYA MANJARI, RES Apr 03, 2025 18:13
--- NOTE | 2025-04-03 18:46 | PROGRESS NOTE ---
Progress Note Dictate Providers to CC ~ Central Line/PICC still needed: No Mcfadden Indications Met/Not Met: F/C Indications Not Met Antibiotic Ordered?: N/A Subjective Subjective right sided chest tube in place. Objective Vitals Vital Signs Date Time Temp Pulse Resp B/P (MAP) Pulse Ox O2 Delivery O2 Flow Rate FiO2 04/03/25 15:15 71 14 104/42 (62) 97 Room Air 04/03/25 11:00 97.3 04/03/25 07:53 0 21 Lab Results: 04/03/25 0610 04/03/25 0610 Objective Vital Signs: As above General: Normal body habitus, no acute distress. sleeping with ciera CPAP Skin: No rashes, lumps, ulcers, blisters, purpura or petechiae HEENT: Anicteric sclera, MICA Neck: Supple and nontender without enlargement of the thyroid, or lymphadenopathy. Chest: few crackles mostly right sided. recent thoracentesis Heart: Regular. No jugular venous distention, S1 and S2 heard , no gallop Abdomen: Soft and non tender no organomegaly,BS+ Extremities: No pedal edema right AKA Neuro: Nonfocal. Coagulation Studies Laboratory Tests Test 03/26/25 14:41 03/27/25 12:25 Prothrombin Time 11.3 SECONDS (9.0-12.0) INR International Normalized Ratio 1.1 INR Activated Partial Thromboplast Time 23 SECONDS (22-32) Coagulation Comments D-Dimer 7.91 MG/L FEU (0-0.50) H D-Dimer Comment Advance Care Planning Advanced Care plannin - 30 Minutes Problem\Assessment\Plan Problems/Diagnosis: (1) Acute kidney injury superimposed on CKD Assessment & Plan: now has right chest tube in place. serology is negative so far. has dm nephropathy. fluid restriction to 1.2 liters per day (2) Diabetes mellitus Assessment & Plan: as above. need hbA1C to be controlled. consider SGLt2i (3) Anemia Assessment & Plan: iron deficiency noted. started Venofer. stop PO ferrous sulfate. (4) Afib Assessment & Plan: stable. CHEMA SANTA MD Apr 03, 2025 18:46
[2025-04-03] MEDS: magnesium hydroxide 30ml (MOM) UD suspension PO PRN (20:20)
[2025-04-04] VITALS (8 sets, daily range): BP systolic 100–120; BP diastolic 44–54; PULSE 49–68; RESP 12–20; TEMP 97.2–98.2; O2SAT 95–99
[2025-04-04] MEDS: ondansetron/PF 4mg/2ml inj IV PRN (03:45)
[2025-04-04 07:39] LABS: MEAN PLATELET VOLUME 7.6 FL (7.4-10.4); RED CELL DISTRIBUTION WIDTH 19.0 % (11.5-14.5)
[2025-04-04 08:10] LABS: CREATININE 2.24 MG/DL (0.60-1.10); PHOSPHORUS 2.7 MG/DL (2.3-4.5); TOTAL CARBON DIOXIDE 31.6 MMOL/L (24-32); eCRCL 23 ML/MIN; eGFR 28 ML/MIN
--- NOTE | 2025-04-04 13:39 | PROGRESS NOTE- Residence ---
Progress Note - Resident Providers to CC Resident Creating Document: ELIZA FULTON, NENA ~ Antibiotic Timeout Antibiotic Ordered?: No Subjective Patient's chest tube output 380 mL in the last 24 hours. Objective Vital Signs Date Time Temp Pulse Resp B/P (MAP) Pulse Ox O2 Delivery O2 Flow Rate FiO2 04/04/25 12:23 62 17 95 Room Air* 0 21 04/04/25 12:09 100/46 (64) 04/04/25 11:00 97.2 Result Diagram: 04/04/25 0556 04/04/25 0556 General: Moderately built elderly male, Alert, awake, oriented, in no distress HEENT: PERRLA, no icterus, pallor, lymphadenopathy, carotid bruit Respiratory system: improved breath sounds on the right, mildly decreased breath sounds on the right,no wheezing, mild crackles on auscultation. Chest tube in place CVS: Irregularly irregular heart rate, S1-S2 heard, no murmurs/rubs/gallop GI: Soft, no organomegaly, no guarding/rigidity, bowel sounds present Neuro: No focal neurological deficits present. Cranial examination is normal, motor and sensory nerve examination is normal Extremities: Right lower extremity BKA, no lower extremity edema Musculoskeletal: Right lower extremity BKA, no deformities Skin: Warm and dry Psych: Normal mood and affect Coagulation Studies Laboratory Tests Test 03/26/25 14:41 03/27/25 12:25 Prothrombin Time 11.3 SECONDS (9.0-12.0) INR International Normalized Ratio 1.1 INR Activated Partial Thromboplast Time 23 SECONDS (22-32) Coagulation Comments D-Dimer 7.91 MG/L FEU (0-0.50) H D-Dimer Comment Plan Plan Right hydropneumothorax CHF exacerbation Patient underwent right pigtail catheter insertion. Chest tube output 384 L in the last 24 hours. Unable to remove chest tube with high output. Patient will need to be discharged to LTAC. Numerous bilateral pulmonary nodules Nicotine use disorder COPD Outpatient follow up. Eliza Fulton MD Internal Medicine Resident, PGY-2 The patient was seen, examined and discussed with the attending physician, Dr. Kirkland. Date of Service: Apr 04, 2025 Billing Provider: FLOR KIRKLAND MD, SOWMYA MANJARI, RES Apr 04, 2025 13:39
--- NOTE | 2025-04-04 16:36 | DISCHARGE SUMMARY-Residence ---
Discharge Summary Providers to CC Resident Creating Document: GROVER BEJARANO RAY, RES ~ Discharge Summary Admission Diagnosis: CHF EXACERBATION Hospital Course DATE OF ADMISSION: 03/26/2024 DATE OF DISCHARGE: 04/04/2025 Discharge Diagnosis\Comment: Acute exacerbation of congestive heart failure with reduced ejection fraction, improved Bilateral pleural effusion-transudative secondary to above Right Hydropneumothorax oxygen Acute on chronic hypoxemic respiratory failure 2/2 CHF/Pleaural effusion, resolved Sepsis 2/2 Community-acquired pneumonia covering Gram-positive and Gram-negative bacteria - POA, resolving COPD exacerbation, improving Multiple pulmonary nodules-suspected lung malignancy PE ruled out Persistent Atrial Fibrillation, rate controlled Status post Watchman procedure Obstructive sleep apnea on CPAP Suspected pulmonary hypertension 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, likely secondary to tubular stasis in the setting of likely diabetic nephropathy Hyperkalemia, resolved Chronic Hyponatremia, improved Anemia of chronic disease History of recurrent GI bleeds History of gastric angiectasias Hematochezia, resolved Type 2 diabetes mellitus Moderate protein energy malnutrition Thyroid nodules Operations\Procedures: Thoracentesis Chest tube placement Laboratory Tests Test 04/02/25 16:51 04/02/25 21:13 04/03/25 06:10 04/03/25 07:16 Glucometer 333 mg/dl 346 mg/dl 147 mg/dl White Blood Count 9.4 X10'3 Red Blood Count 3.65 X10'6 Hemoglobin 9.4 g/dl Hematocrit 28.7 % Mean Corpuscular Volume 78.6 FL Mean Corpuscular Hemoglobin 25.6 PG Mean Corpuscular Hemoglobin Concent 32.6 g/dL Red Cell Distribution Width 18.6 % Platelet Count 347 X10'3 Mean Platelet Volume 7.4 FL Neutrophils (%) (Auto) 73.5 % Lymphocytes (%) (Auto) 16.8 % Monocytes (%) (Auto) 9.4 % Eosinophils (%) (Auto) 0.2 % Basophils (%) (Auto) 0.1 % Neutrophils # (Auto) 6.9 X10'3 Lymphocytes # (Auto) 1.6 X10'3 Monocytes # (Auto) 0.9 X10'3 Eosinophils # (Auto) 0.0 X10'3 Basophils # (Auto) 0.0 X10'3 CBC Comment Platelet Estimate Normal Red Blood Cell Morphology Perf Basophilic Stippling Anisocytosis 2+ Microcytosis 1+ Elliptocytes Few Schistocytes Few Sodium Level 138 MMOL/L Potassium Level 4.2 MMOL/L Chloride Level 103 MMOL/L Carbon Dioxide Level 29.9 MMOL/L Anion Gap 5 Blood Urea Nitrogen 70 MG/DL Creatinine 2.25 MG/DL Estimated GFR/1.73 m2 28 ML/MIN BUN/Creatinine Ratio 31.1 Glucose Level 161 MG/DL Calcium Level 8.5 MG/DL Phosphorus Level 3.4 MG/DL Magnesium Level 2.0 MG/DL Albumin 2.1 G/DL Chemistry Comments Test 04/03/25 11:37 04/03/25 17:33 04/03/25 22:11 04/04/25 03:58 Glucometer 209 mg/dl 267 mg/dl 362 mg/dl 127 mg/dl Test 04/04/25 05:56 04/04/25 06:42 04/04/25 09:29 04/04/25 12:12 White Blood Count 11.3 X10'3 Red Blood Count 3.52 X10'6 Hemoglobin 9.0 g/dl Hematocrit 28.2 % Mean Corpuscular Volume 80.0 FL Mean Corpuscular Hemoglobin 25.4 PG Mean Corpuscular Hemoglobin Concent 31.8 g/dL Red Cell Distribution Width 19.0 % Platelet Count 342 X10'3 Mean Platelet Volume 7.6 FL Neutrophils (%) (Auto) 74.4 % Lymphocytes (%) (Auto) 14.9 % Monocytes (%) (Auto) 10.3 % Eosinophils (%) (Auto) 0.3 % Basophils (%) (Auto) 0.1 % Neutrophils # (Auto) 8.4 X10'3 Lymphocytes # (Auto) 1.7 X10'3 Monocytes # (Auto) 1.2 X10'3 Eosinophils # (Auto) 0.0 X10'3 Basophils # (Auto) 0.0 X10'3 CBC Comment Sodium Level 140 MMOL/L Potassium Level 4.5 MMOL/L Chloride Level 105 MMOL/L Carbon Dioxide Level 31.6 MMOL/L Anion Gap 3 Blood Urea Nitrogen 75 MG/DL Creatinine 2.24 MG/DL Estimated GFR/1.73 m2 28 ML/MIN BUN/Creatinine Ratio 33.5 Glucose Level 119 MG/DL Calcium Level 8.4 MG/DL Phosphorus Level 2.7 MG/DL Magnesium Level 2.1 MG/DL Albumin 2.1 G/DL Chemistry Comments Glucometer 109 mg/dl 169 mg/dl 226 mg/dl Consultants: Crew Person- Dr. Kwok, Dr. Alyx De Jesus, Dr. Long Complications: None Condition on DC: Stable Discharge Summary: History of present illness by the admitting physician Dr. FLOWERS,SHERON RAMACHANDRAN, This is a 89-year-old male with a history of heavy tobacco use, persistent atr ial fibrillation s/p Watchman procedure not on anticoagulation, CKD stage 3, COPD on 3 L home oxygen, type 2 diabetes, hypertension, prior prostatectomy, right MAX s/p prosthetic leg and sleep apnea on CPAP was referred to the ER by his director clinical data during a visit in the outpatient clinic. Per patient, he has been feeling short of breath since the last 2-3 weeks and he is currently not taking any diuretics at home. He endorses orthopnea, PND and swelling in legs. His current medications include prednisone 20 mg daily, iron supplements, Januvia 25 mg, losartan 50 mg, simvastatin 40 mg and carvedilol [address] De Jesus is his investigative writer in the outpatient. He denies any cough, sputum production, fever, skin infections but has a abdominal tenderness on palpation of the right upper quadrant. Course in the hospital: On initial evaluation the patient was found to be in acute on chronic hypoxemic respiratory failure most likely secondary to acute exacerbation of CHF with reduced ejection fraction, cor pulmonale and persistent atrial fibrillation. An echocardiography was done which showed a left ventricular ejection fraction 40% with a significantly elevated RVSP of 58 mmHg. The patient was started on IV diuresis with the Lasix 40 mg b.i.d. and was started on GDM T with Coreg, lisinopril, Jardiance. The patient was found to have bilateral pleural effusions on chest x-ray. The on-call cut off saw operator was consulted. The patient had 700 cc of fluid drained from his right hemithorax. In view of the patient's COPD exacerbation the patient was also started on IV ceftriaxone and azithromycin with the respiratory evaluation and treatment along with DuoNeb nebulizations and p.o. prednisolone. Repeat CT scan of the chest showed hydropneumothorax on the right with a mild pleural effusion on the left. The interventional radiologist was consulted and the patient has a chest tube placed. The supervisor crack off was following the patient and recommended to continue the patient's chest tube in view of the patient's high output from the chest tube. The patient has been referred to [facility] for chest tube management and the supervisor crack off Dr. kwok we will follow him at the [facility] for chest tube management. His director clinical data Dr. Fajardo was consulted who recommended the patient can follow up with him after discharge in his office. In view of the patient's MAX on CKD the on-call investigative writer Dr. Vicente/Dr. De Jesus were consulted. Management was done as per their recommendation and the patient is recommended to continue following them after discharge. The patient's CT scan of the chest showed multiple pulmonary nodules. The fluid from thoracentesis was sent for pathology and cytology report to check for underlying malignancy to [facility]. During the hospitalization in the patient developed asymptomatic bradycardia with a heart rate dropping to the 30s and hence his Coreg is held. He was also found to develop severe anemia and review of his records show a history of gastric angiectasia us and hence the gastroenterology team was consulted. The patient had EGD done which was negative for any acute signs of bleeding. A colonoscopy was also done which showed multiple angiodysplasias and diverticulosis but no active signs of bleeding. The patient was treated with IV Protonix and iron supplements during the course of the hospitalization. The patient received IV iron in the hospital and hence his p.o. iron has been discontinued. He was also incidentally found to have a thyroid nodule which requires outpatient monitoring and follow up after discharge. The patient's condition improved significantly during the course of hospitalization. His condition was stable and has been transferred to [facility] for chest tube management. Examination at discharge: General: Moderately built elderly male, Alert, awake, oriented, in no distress HEENT: PERRLA, no icterus, pallor, lymphadenopathy, carotid bruit Respiratory system: improved breath sounds on the right, mildly decreased breath sounds on the right,no wheezing, mild crackles on auscultation. Chest tube in place CVS: Irregularly irregular heart rate, S1-S2 heard, no murmurs/rubs/gallop GI: Soft, no organomegaly, no guarding/rigidity, bowel sounds present Neuro: No focal neurological deficits present. Cranial examination is normal, motor and sensory nerve examination is normal Extremities: Right lower extremity BKA, no lower extremity edema Musculoskeletal: Right lower extremity BKA, no deformities Skin: Warm and dry Psych: Normal mood and affect *Problems/Diagnosis: (1) Acute kidney injury superimposed on CKD Status: Acute (2) Diabetes mellitus Status: Chronic (3) Anemia Status: Acute (4) Afib Status: Chronic (5) Hydropneumothorax (6) Pleural effusion (7) Multiple lung nodules (8) Thyroid nodule (9) Afib (10) Obstructive sleep apnea (11) CKD stage 4 due to type 1 diabetes mellitus (12) Chronic hyponatremia (13) Anemia of chronic disease (14) Recurrent gastrointestinal hemorrhage (15) Angiectasia (16) Hematochezia (17) Type 2 diabetes mellitus (18) Sepsis (19) ARF (acute renal failure) Status: Acute (20) CRF (chronic renal failure) Status: Acute (21) CHF (congestive heart failure) Status: Chronic (22) Acute respiratory failure Status: Resolved (23) Acute renal failure Status: Acute (24) Acute exacerbation of CHF (congestive heart failure) Status: Acute (25) Shortness of breath Status: Acute (26) Anemia Status: Acute (27) Chronic obstructive pulmonary disease Status: Acute (28) Hypertension Status: Chronic Total Time Spent on D/C: > 30 Minutes Date of Service: Apr 04, 2025 Billing Provider: BERLIN GUZMAN MD Common Visit Codes: 01657-KFT/OBS DISCH DAY >30min GROVER BEJARANO, RES Apr 04, 2025 16:20 BERLIN GUZMAN MD Apr 05, 2025 15:58
== END 2025-04-04 14:08 | DRG 871 ==
LOC: ER 14:07 → ED HOLD 19:44 → ORTHO 4S 03-27 02:50 → PCU 3S 04-01 16:30
PROVIDERS: ADMIT Internal Medicine; ATTEND Family Medicine
PROC: 0W993ZZ Drainage of Right Pleural Cavity, Percutaneous Approach (ICD-10-PCS; 2025-03-27)
PROC: 30233N1 Transfusion of Nonautologous Red Blood Cells into Peripheral Vein, Percutaneous Approach (ICD-10-PCS; 2025-03-28)
PROC: CB121ZZ Planar Nuclear Medicine Imaging of Lungs and Bronchi using Technetium 99m (Tc-99m) (ICD-10-PCS; 2025-03-28)
PROC: 5A09357 Assistance with Respiratory Ventilation, Less than 24 Consecutive Hours, Continuous Positive Airway Pressure (ICD-10-PCS; 2025-03-28)
PROC: 5A09357 Assistance with Respiratory Ventilation, Less than 24 Consecutive Hours, Continuous Positive Airway Pressure (ICD-10-PCS; 2025-03-29)
PROC: 0DB68ZX Excision of Stomach, Via Natural or Artificial Opening Endoscopic, Diagnostic (ICD-10-PCS; principal; 2025-03-29 09:07)
PROC: 0W3P8ZZ Control Bleeding in Gastrointestinal Tract, Via Natural or Artificial Opening Endoscopic (ICD-10-PCS; 2025-03-30)
PROC: 5A09357 Assistance with Respiratory Ventilation, Less than 24 Consecutive Hours, Continuous Positive Airway Pressure (ICD-10-PCS; 2025-03-30)
PROC: 5A09357 Assistance with Respiratory Ventilation, Less than 24 Consecutive Hours, Continuous Positive Airway Pressure (ICD-10-PCS; 2025-03-31)
PROC: 0W9930Z Drainage of Right Pleural Cavity with Drainage Device, Percutaneous Approach (ICD-10-PCS; 2025-04-01)
DX: A41.9 Sepsis, unspecified organism (principal); I50.23 Acute on chronic systolic (congestive) heart failure; J96.21 Acute and chronic respiratory failure with hypoxia; K29.71 Gastritis, unspecified, with bleeding; N17.0 Acute kidney failure with tubular necrosis; E44.0 Moderate protein-calorie malnutrition; N18.4 Chronic kidney disease, stage 4 (severe); E86.0 Dehydration; I13.0 Hypertensive heart and chronic kidney disease with heart failure and stage 1 through stage 4 chronic kidney disease, or unspecified chronic kidney disease; J44.1 Chronic obstructive pulmonary disease with (acute) exacerbation; D63.1 Anemia in chronic kidney disease; E11.65 Type 2 diabetes mellitus with hyperglycemia; D50.0 Iron deficiency anemia secondary to blood loss (chronic); E87.1 Hypo-osmolality and hyponatremia; I48.19 Other persistent atrial fibrillation; E87.5 Hyperkalemia; K21.00 Gastro-esophageal reflux disease with esophagitis, without bleeding; R19.5 Other fecal abnormalities; K55.20 Angiodysplasia of colon without hemorrhage; K57.30 Diverticulosis of large intestine without perforation or abscess without bleeding; R91.8 Other nonspecific abnormal finding of lung field; G47.33 Obstructive sleep apnea (adult) (pediatric); E11.22 Type 2 diabetes mellitus with diabetic chronic kidney disease; I25.10 Atherosclerotic heart disease of native coronary artery without angina pectoris; Z88.0 Allergy status to penicillin; Z79.84 Long term (current) use of oral hypoglycemic drugs; Z79.899 Other long term (current) drug therapy; Z87.891 Personal history of nicotine dependence; Z90.79 Acquired absence of other genital organ(s); Z85.46 Personal history of malignant neoplasm of prostate; Z95.818 Presence of other cardiac implants and grafts; Z87.11 Personal history of peptic ulcer disease; Z68.26 Body mass index [BMI] 26.0-26.9, adult
CPT/HCPCS: 32557; 36415; 36430; 36600; 43239; 45382; 71045; 71250; 76536; 76604; 76700; 76770; 78582; 80048; 80053; 81001; 82272; 82728; 82803; 82945; 82948; 83036; 83540; 83550; 83605; 83615; 83735; 83880; 83930; 83935; 83986; 84100; 84132; 84145; 84155; 84157; 84165; 84300; 84484; 85008; 85018; 85025; 85027; 85379; 85610; 85651; 85730; 86038; 86060; 86140; 86160; 86803; 86885; 86900; 86901; 86920; 87070; 87081; 87340; 87522; 88108; 88305; 89051; 93005; 93308; 94640; 94760; 96374; 96375; 97110; 97116; 97161; 97530; 99285; A4615; A4620; A6213; A6258; A9539; A9540; C1729; G0378; J0456; J0696; J1644; J1756; J1815; J1938; J2250; J2405; J2470; J2704; J2919; J3010; J3490; J7040; J7120; J7512; P9016; Q4081